=== PATIENT | male | born 1955 | race Two or more races ===

== ENCOUNTER 2018-07-28 14:08 | Inpatient (IN) | payer OTHER ==
[2018-07-28] VITALS (8 sets, daily range): BP systolic 88–115; BP diastolic 52–64
[~2018-07-28] VITALS: Ht 172.7 cm; Wt 72.8 kg
[2018-07-28] MEDS ORDERED: METOCLOPRAMIDE H5 M1 GT (14:16)
[2018-07-28] MEDS ORDERED: RENA-VITE TABL0.8 M1 GT (14:16)
[2018-07-28] MEDS ORDERED: BISACODYL10 M1 RC (14:16)
[2018-07-28] MEDS ORDERED: IPRATROPIU0.2 MG/1 M HHN (14:16)
[2018-07-28] MEDS ORDERED: RENVELA2.4 GM GT (14:16)
[2018-07-28] MEDS ORDERED: BISACODYL5 MG GT (14:16)
[2018-07-28] MEDS ORDERED: CARVEDILOL6.25 MG GT (14:16)
[2018-07-28] MEDS ORDERED: PRO-STAT LIQUID30 ML GT (14:16)
[2018-07-28] MEDS ORDERED: MELATONIN1 MG GT (14:16)
[2018-07-28] MEDS ORDERED: ASPIR 8181 MG GT (14:16)
[2018-07-28] MEDS ORDERED: DIPHENHYDRAMINE25 M1 GT (14:16)
[2018-07-28] MEDS ORDERED: PREVACID30 MG GT (14:16)
[2018-07-28] MEDS ORDERED: DOCUSATE SODIU100 MG GT (14:16)
--- NOTE | 2018-07-28 14:40 | Emergency Room Report ---
History of Present Illness General Chief Complaint: Altered Level of Consciousness Source: Medical Record, EMS Present Illness HPI Patient is a 63-year-old male brought in by EMS after increased altered mental status. Patient a prior history of end-stage renal disease and is currently on dialysis Monday and Monday. Patient had been unable to be dialyzed this morning. Patient was noted to be verbal at baseline. Patient was not noted to be at his baseline mental status. Patient had prior history of G-tube dependence. He had been noted to have somewhat low blood pressure this morning. Allergies: Coded Allergies: PENICILLINS (Verified Allergy, Unknown, 07/28/18) Patient History Past Medical History: see triage record Reviewed Nursing Documentation: PMH: Agreed; PSxH: Agreed Nursing Documentation-PMH Hx Hypertension: Yes Hx Diabetes: Yes Hx Dialysis: Yes - CKD, anemia, Mon, and Mon Review of Systems All Other Systems: limited - Review of systems: Review systems is limited by patient's being a poor historian Physical Exam Vital Signs Date Time Temp Pulse Resp B/P (MAP) Pulse Ox O2 Delivery O2 Flow Rate FiO2 07/28/18 14:06 98.2 76 18 91/56 (68) 95 Nasal Cannula 2.0 General Appearance: alert, Chronically Ill ENT: dry mucus membranes Neck: limited range of motion Respiratory: chest non-tender, lungs clear, normal breath sounds Cardiovascular #1: normal peripheral pulses, regular rate, rhythm Gastrointestinal: other - gtube present Musculoskeletal: normal inspection Neurologic: aphasia, motor weakness Psychiatric: normal inspection Medical Decision Making Diagnostic Impression: Primary Impression: Altered mental status Additional Impressions: Missed dialysis Encephalopathy acute ER Course Patient presented for altered mental status. Differential diagnosis include was not limited to uremia, CVA, sepsis, hepatic encephalopathy among others. Because of complexity of patient's case laboratory testing and imaging studies were ordered. Ct of head read by radiology showed chronic white matter changes without evident hemorrhage or cva. Patient was started on IV fluids due to hypotension. He was noted to have some improvement in mental status. Per patient mother, Gtube had recently been placed. and patient normally is difficult to understand due to dysarthria. Dr. Luis Daniel Salcido was contacted for inpatient management due to capitated physician for [place]. Laboratory Tests Test 07/28/18 14:17 07/28/18 14:30 07/29/18 03:25 Sodium Level 135 MMOL/L (136-145) L 138 MMOL/L (136-145) Potassium Level 5.4 MMOL/L (3.5-5.1) H 4.7 MMOL/L (3.5-5.1) Chloride Level 98 MMOL/L (98-107) 100 MMOL/L (98-107) Carbon Dioxide Level 30 MMOL/L (21-32) 30 MMOL/L (21-32) Anion Gap 7 mmol/L (5-15) 8 mmol/L (5-15) Blood Urea Nitrogen 57 mg/dL (7-18) H 63 mg/dL (7-18) H Creatinine 5.8 MG/DL (0.55-1.30) H 6.3 MG/DL (0.55-1.30) H Estimate Glomerular Filtration Rate 9.9 mL/min (>60) 9.0 mL/min (>60) Glucose Level 96 MG/DL (74-106) 69 MG/DL (74-106) L Calcium Level 9.7 MG/DL (8.5-10.1) 9.7 MG/DL (8.5-10.1) Phosphorus Level 6.5 MG/DL (2.5-4.9) H Magnesium Level 2.4 MG/DL (1.8-2.4) Total Bilirubin 0.4 MG/DL (0.2-1.0) 0.4 MG/DL (0.2-1.0) Aspartate Amino Transferase (AST) 54 U/L (15-37) H 32 U/L (15-37) Alanine Aminotransferase (ALT) 19 U/L (12-78) 13 U/L (12-78) Alkaline Phosphatase 339 U/L (46-116) H 298 U/L (46-116) H Ammonia 23 umol/L (11-32) Total Creatine Kinase 116 U/L (26-308) Creatine Kinase MB < 0.5 NG/ML (0.0-3.6) Creatine Kinase MB Relative Index 0.4 Total Protein 9.0 G/DL (6.4-8.2) H 8.4 G/DL (6.4-8.2) H Albumin 2.3 G/DL (3.4-5.0) L 2.2 G/DL (3.4-5.0) L Globulin 6.7 g/dL 6.2 g/dL Albumin/Globulin Ratio 0.3 (1.0-2.7) L 0.4 (1.0-2.7) L White Blood Count 10.7 K/UL (4.8-10.8) Red Blood Count 4.64 M/UL (4.70-6.10) L Hemoglobin 10.5 G/DL (14.2-18.0) L Hematocrit 35.6 % (42.0-52.0) L Mean Corpuscular Volume 77 FL (80-99) L Mean Corpuscular Hemoglobin 22.5 PG (27.0-31.0) L Mean Corpuscular Hemoglobin Concent 29.4 G/DL (32.0-36.0) L Red Cell Distribution Width 17.9 % (11.6-14.8) H Platelet Count 258 K/UL (150-450) Mean Platelet Volume 7.8 FL (6.5-10.1) Neutrophils (%) (Auto) 61.3 % (45.0-75.0) Lymphocytes (%) (Auto) 23.9 % (20.0-45.0) Monocytes (%) (Auto) 5.2 % (1.0-10.0) Eosinophils (%) (Auto) 8.5 % (0.0-3.0) H Basophils (%) (Auto) 1.1 % (0.0-2.0) Lactic Acid Level 1.80 mmol/L (0.4-2.0) Troponin I 0.004 ng/mL (0.000-0.056) Thyroid Stimulating Hormone (TSH) 0.832 uiU/mL (0.358-3.740) Cortisol AM Sample Pending Last Vital Signs Date Time Temp Pulse Resp B/P (MAP) Pulse Ox O2 Delivery O2 Flow Rate FiO2 07/28/18 14:06 98.2 76 18 91/56 (68) 95 Nasal Cannula 2.0 Status: improved Disposition: ADMITTED INPATIENT Condition: Stable Pasquale Reese MD Jul 28, 2018 14:40
[2018-07-28 14:59] LABS: BASOPHILS % (AUTO) 1.1 % (0.0-2.0); EOSINOPHILS % (AUTO) 8.5 % (0.0-3.0); HEMATOCRIT 35.6 % (42.0-52.0); HEMOGLOBIN 10.5 G/DL (14.2-18.0); LYMPHOCYTES % (AUTO) 23.9 % (20.0-45.0); MEAN CORPUSCULAR VOLUME 77 FL (80-99); MONOCYTES % (AUTO) 5.2 % (1.0-10.0); NEUTROPHILS % (AUTO) 61.3 % (45.0-75.0); PLATELET COUNT 258 K/UL (150-450); RED BLOOD COUNT 4.64 M/UL (4.70-6.10); RED CELL DISTRIBUTION WIDTH 17.9 % (11.6-14.8); WHITE BLOOD COUNT 10.7 K/UL (4.8-10.8)
[2018-07-28 15:13] LABS: ANION GAP 7 mmol/L (5-15); BLOOD UREA NITROGEN 57 mg/dL (7-18); CALCIUM 9.7 MG/DL (8.5-10.1); CARBON DIOXIDE 30 MMOL/L (21-32); CHLORIDE 98 MMOL/L (98-107); CREATININE 5.8 MG/DL (0.55-1.30); POTASSIUM 5.4 MMOL/L (3.5-5.1); SODIUM 135 MMOL/L (136-145)
[2018-07-28 15:17] LABS: AMMONIA 23 umol/L (11-32)
[2018-07-28 15:29] LABS: ALANINE AMINOTRANSFERASE 19 U/L (12-78); ALBUMIN 2.3 G/DL (3.4-5.0); ALBUMIN/GLOBULIN RATIO 0.3 (1.0-2.7); ALKALINE PHOSPHATASE 339 U/L (46-116); ASPARTATE AMINO TRANSFERASE 54 U/L (15-37); BILIRUBIN,TOTAL 0.4 MG/DL (0.2-1.0); CKMB < 0.5 NG/ML (0.0-3.6); CREATINE KINASE 116 U/L (26-308); PHOSPHORUS 6.5 MG/DL (2.5-4.9)
--- NOTE | 2018-07-28 15:50 | Diagnostic Imaging Report ---
History: AMS Exam: CT HEAD Without Contrast Technique more: CTDI is 70.38 mGy and DLP is 1520 mGy-cm. Technique more: One or more of the following dose reduction techniques were used: automated exposure control, adjustment of the mA and/or kV according to patient size, use of iterative reconstruction technique. Comparison: None available FINDINGS: No intracranial hemorrhage, mass effect or CT evidence of acute infarct. Convexity volume loss, atrophy. The ventricles are within limits and midline. The paranasal sinuses and mastoids are clear. Old left inferior orbital floor deformity. IMPRESSION: No intracranial hemorrhage, mass effect or CT evidence of acute infarct. Convexity volume loss, atrophy.
--- NOTE | 2018-07-28 16:24 | Consultation ---
History of Present Illness General Date patient seen: Jul 28, 2018 Chief Complaint: Altered Level of Consciousness Referring physician: Dr. Salcido Present Illness HPI Justin Singletary is a 63-year-old male with a past medical history of dysphagia status post G-tube, hypertension, and end-stage renal disease, who presented with complaints of altered mental status. The patient is unable to provide any history but was slightly hypotensive at time of his ED admission. He has not received dialysis. He had a CAT scan of the head that was unremarkable, but in light of his confusion, he is now admitted for further evaluation and care. Neurological consultation has been requested at this time. Allergies: Coded Allergies: PENICILLINS (Verified Allergy, Unknown, 07/28/18) Medication History Scheduled Amino Acids/Protein Hydrolys (Pro-Stat Liquid), 30 ML GT TWICE A DAY, (Reported) Aspirin* (Aspir 81*), 81 MG GT DAILY, (Reported) Carvedilol* (Carvedilol*), 6.25 MG GT EVERY 12 HOURS, (Reported) Docusate Sodium* (Docusate Sodium*), 200 MG GT DAILY, (Reported) Folic Acid/Vitamin B Comp W-C (Cathy-Andres Tablet), 0.8 MG GT DAILY, (Reported) Lansoprazole* (Prevacid*), 30 MG GT DAILY, (Reported) Midodrine (Midodrine HCl), 10 MG ORAL THREE TIMES A DAY Sevelamer Carbonate* (Renvela*), 2,400 MG GT THREE TIMES A DAY, (Reported) Scheduled PRN Bisacodyl (Bisacodyl), 10 MG RC DAILY PRN for Constipation, (Reported) Bisacodyl* (Dulcolax*), 5 MG GT DAILY PRN for Constipation, (Reported) Diphenhydramine Hcl* (Diphenhydramine Hcl*), 25 MG GT Q6H PRN for Itching, ( Reported) Hydrocortisone (Hydrocortisone), 10 MG PO BID PRN Ipratropium [place] 0.5MG/2.5ML (Ipratropium [place] 0.5MG/2.5ML), 0.5 MG HHN Q6H PRN for Shortness of Breath, (Reported) Melatonin (Melatonin), 1 MG GT HS PRN for Insomnia, (Reported) Metoclopramide Hcl* (Metoclopramide Hcl*), 5 MG GT EVERY 6 HOURS PRN for Nausea & Vomiting, (Reported) Patient History Limited by: medical condition History Provided By: Medical Record Healthcare decision maker Resuscitation status Advanced Directive on File Review of Systems Constitutional: Denies: no symptoms, see HPI, chills, sweats, fever, malaise, weakness, other Eye: Denies: no symptoms, see HPI, eye pain, blurred vision, tearing, double vision, nose pain, nose congestion, acuity changes, discharge, other ENT: Denies: no symptoms, see HPI, ear pain, ear discharge, nose pain, nose congestion, throat pain, throat swelling, mouth pain, hearing loss, nasal discharge, other Respiratory: Denies: no symptoms, see HPI, cough, orthopnea, shortness of breath, stridor, wheezing, GUZMAN, sputum, other Cardiovascular: Denies: no symptoms, see HPI, chest pain, edema, palpitations, syncope, PND, other Gastrointestinal: Denies: no symptoms, see HPI, abdominal pain, constipation, diarrhea, nausea, vomiting, melena, hematemesis, other Genitourinary: Denies: no symptoms, see HPI, discharge, dysuria, frequency, hematuria, pain, retention, incontinence, urgency, vag bleed/dc, other Musculoskeletal: Reports: other - leg pain Skin: Denies: no symptoms, see HPI, rash, change in color, change in hair/nails , dryness, lesions, other Psychiatric: Denies: no symptoms, see HPI, prior hx, anxiety, depressed feelings, emotional problems, SI, HI, hallucinations, other Neurological: Denies: no symptoms, see HPI, headache, numbness, paresthesia, seizure, tingling, tremors, focal weakness, syncope, dizziness, other Endocrine: Denies: no symptoms, see HPI, excessive sweating, flushing, intolerance to temperature, increased thirst, increased urine, unexplained weight loss, other Hematologic/Lymphatic: Denies: no symptoms, see HPI, anemia, blood clots, easy bleeding, easy bruising, swollen glands, diathesis, other Physical Exam General Appearance: WD/WN, no apparent distress, alert, confused, other Lines, tubes and drains: peripheral HEENT: normocephalic, atraumatic, anicteric, mucous membranes moist, PERRL, EOMI, pharynx normal, supple, no JVD, other - Minimal dentation Neck: non-tender, normal alignment, supple, normal inspection Respiratory/Chest: normal breath sounds, no respiratory distress, no accessory muscle use Cardiovascular/Chest: normal peripheral pulses, no JVD Extremities: non-tender, non-pitting, no edema, no cyanosis, calf tenderness, other Skin Exam: normal pigmentation, warm/dry, no diaphoresis Neurologic: alert, responsive, abnormal CN, motor weakness, disoriented, other Physical Exam Narrative He is severely dysarthric secondary to his poor dentation. He has a left hand contracture but denies prior stroke. He follows commands and is weak throughout without any significant focal weakness Last 24 Hour Vital Signs Date Time Temp Pulse Resp B/P (MAP) Pulse Ox O2 Delivery O2 Flow Rate FiO2 07/28/18 15:30 99.2 75 18 95/57 100 Room Air 07/28/18 14:40 98.5 75 18 90/57 100 Room Air 07/28/18 14:30 76 18 Nasal Cannula 2.0 07/28/18 14:10 99.0 74 18 88/52 100 Room Air 07/28/18 14:06 98.2 76 18 91/56 (68) 95 Nasal Cannula 2.0 Laboratory Tests Test 07/28/18 14:17 07/28/18 14:30 Sodium Level 135 MMOL/L (136-145) L Potassium Level 5.4 MMOL/L (3.5-5.1) H Chloride Level 98 MMOL/L (98-107) Carbon Dioxide Level 30 MMOL/L (21-32) Anion Gap 7 mmol/L (5-15) Blood Urea Nitrogen 57 mg/dL (7-18) H Creatinine 5.8 MG/DL (0.55-1.30) H Estimat Glomerular Filtration Rate 9.9 mL/min (>60) Glucose Level 96 MG/DL (74-106) Calcium Level 9.7 MG/DL (8.5-10.1) Phosphorus Level 6.5 MG/DL (2.5-4.9) H Magnesium Level 2.4 MG/DL (1.8-2.4) Total Bilirubin 0.4 MG/DL (0.2-1.0) Aspartate Amino Transf (AST/SGOT) 54 U/L (15-37) H Alanine Aminotransferase (ALT/SGPT) 19 U/L (12-78) Alkaline Phosphatase 339 U/L (46-116) H Ammonia 23 umol/L (11-32) Total Creatine Kinase 116 U/L (26-308) Creatine Kinase MB < 0.5 NG/ML (0.0-3.6) Creatine Kinase MB Relative Index 0.4 Total Protein 9.0 G/DL (6.4-8.2) H Albumin 2.3 G/DL (3.4-5.0) L Globulin 6.7 g/dL Albumin/Globulin Ratio 0.3 (1.0-2.7) L White Blood Count 10.7 K/UL (4.8-10.8) Red Blood Count 4.64 M/UL (4.70-6.10) L Hemoglobin 10.5 G/DL (14.2-18.0) L Hematocrit 35.6 % (42.0-52.0) L Mean Corpuscular Volume 77 FL (80-99) L Mean Corpuscular Hemoglobin 22.5 PG (27.0-31.0) L Mean Corpuscular Hemoglobin Concent 29.4 G/DL (32.0-36.0) L Red Cell Distribution Width 17.9 % (11.6-14.8) H Platelet Count 258 K/UL (150-450) Mean Platelet Volume 7.8 FL (6.5-10.1) Neutrophils (%) (Auto) 61.3 % (45.0-75.0) Lymphocytes (%) (Auto) 23.9 % (20.0-45.0) Monocytes (%) (Auto) 5.2 % (1.0-10.0) Eosinophils (%) (Auto) 8.5 % (0.0-3.0) H Basophils (%) (Auto) 1.1 % (0.0-2.0) Lactic Acid Level 1.80 mmol/L (0.4-2.0) Troponin I 0.004 ng/mL (0.000-0.056) Height (Feet): 5 Height (Inches): 8.00 Weight (Pounds): 160 Medications Current Medications Medications (Trade) Dose Ordered Sig/João Route PRN Reason Start Time Stop Time Status Last Admin Dose Admin Sodium Chloride 1,000 ml @ 999 mls/hr Q1H1M ONCE IV 07/28/18 16:00 07/28/18 17:00 07/28/18 16:05 Assessment/Plan Problem List: (1) Encephalopathy acute ICD Codes: G93.40 - Encephalopathy, unspecified SNOMED: 07504266, 333218555 (2) Missed dialysis SNOMED: 589735724 (3) Altered mental status ICD Codes: R41.82 - Altered mental status, unspecified SNOMED: 576129529 Status: stable Status Narrative CT Brain : No intracranial hemorrhage, mass effect or CT evidence of acute infarct. Convexity volume loss, atrophy Assessment/Plan: Patient has poor dentation and very dysarthric speech as as result. However, he follows commands, is verbally interactive and appropriate as well as being non focal with signs of neurological weakness. May continue Q4 hr Neuro Obs - but he may be allowed to go through evening sleeping without Neuro obs Maintain good sleep hygiene Na 135-145 Treat cause of anemia Maintain normothermia Restart dialysis WINNIE IV hydration as per Nephrology Swallow study No indication for MRI at this time. PT Eduard as Li Buckner N.P. Jul 28, 2018 16:24
--- NOTE | 2018-07-28 17:22 | Diagnostic Imaging Report ---
EXAM: XR Chest, 1 View CLINICAL HISTORY: SOB TECHNIQUE: Frontal view of the chest. COMPARISON: No relevant prior studies available. FINDINGS: Lungs: Bilateral moderate pulmonary edema/infiltrates. Pleural space: Unremarkable. No pneumothorax. Heart: Unremarkable. No cardiomegaly. Mediastinum: Unremarkable. Bones/joints: Unremarkable. Tubes, lines and devices: Left central catheter in the SVC. IMPRESSION: Bilateral moderate pulmonary edema/infiltrates.
[2018-07-28] MEDS ORDERED: Ipratropium 0.02% Inh Soln 2.5ml UD HHN PRN (20:30)
[2018-07-28] MEDS: Midodrine 10mg tab ORAL SCH (21:39)
[2018-07-29] VITALS: BP 108/55
[2018-07-29 04:00] VITALS: BP 101/58
[2018-07-29 05:04] LABS: ALANINE AMINOTRANSFERASE 13 U/L (12-78); ALBUMIN 2.2 G/DL (3.4-5.0); ALBUMIN/GLOBULIN RATIO 0.4 (1.0-2.7); ALKALINE PHOSPHATASE 298 U/L (46-116); ANION GAP 8 mmol/L (5-15); ASPARTATE AMINO TRANSFERASE 32 U/L (15-37); BILIRUBIN,TOTAL 0.4 MG/DL (0.2-1.0); BLOOD UREA NITROGEN 63 mg/dL (7-18); CALCIUM 9.7 MG/DL (8.5-10.1); CARBON DIOXIDE 30 MMOL/L (21-32); CHLORIDE 100 MMOL/L (98-107); CREATININE 6.3 MG/DL (0.55-1.30); POTASSIUM 4.7 MMOL/L (3.5-5.1); SODIUM 138 MMOL/L (136-145)
[2018-07-29 08:00] VITALS: BP 109/67
[2018-07-29] MEDS: Nephrovite tab (Rena-Vite) GT SCH (08:47)
[2018-07-29] MEDS: Midodrine 10mg tab ORAL SCH ×3 (08:47→17:29)
[2018-07-29] MEDS: Renvela 2400 mg pkt GT SCH ×3 (08:47→17:29)
[2018-07-29] MEDS ORDERED: Aspirin EC 81mg tab ORAL SCH (09:00)
[2018-07-29] MEDS ORDERED: Docusate 100mg cap ORAL SCH (09:00)
[2018-07-29 12:00] VITALS: BP 131/66
[2018-07-29] MEDS ORDERED: Ibuprofen Susp 100mg/5ml GT PRN (14:15)
--- NOTE | 2018-07-29 15:52 | General Progress Note ---
Progress Note Progress Note [id number] full note dictated Wanda Hughes MD Jul 29, 2018 15:52
[2018-07-29 16:00] VITALS: BP 111/59
--- NOTE | 2018-07-29 17:30 | History and Physical Report ---
DATE OF ADMISSION: 07/28/2018 CHIEF COMPLAINT: Altered mental status. HISTORY OF PRESENT ILLNESS: The patient is a 63-year-old male. He is a poor historian. He has a history of dysphagia status post G-tube, hypertension, and end-stage renal disease, who presented with complaints of altered mental status. The patient is unable to provide any history. On evaluation in the emergency room, the patient was slightly hypotensive. He has not received dialysis. He had a CAT scan of the head that was unremarkable, but in light of his confusion, he is now admitted for further evaluation and care. PAST MEDICAL HISTORY: As above. PAST SURGICAL HISTORY: Includes hip surgery. CURRENT MEDICATIONS: Reconciled and reviewed. ALLERGIES: Include penicillin. FAMILY HISTORY: Noncontributory. SOCIAL HISTORY: The patient is a prior smoker and quit. No alcohol. No drugs. REVIEW OF SYSTEMS: Unobtainable as the patient is confused and somewhat dysarthric. PHYSICAL EXAMINATION: VITAL SIGNS: Temperature 98 degrees, pulse 71, respirations 20, and blood pressure 109/67. GENERAL: The patient is well developed, in no apparent distress. HEART: Regular rate and rhythm. LUNGS: Clear. ABDOMEN: Soft, nontender, and nondistended. EXTREMITIES: Without clubbing, cyanosis, or edema. The patient is noted to have generalized weakness. LABORATORY DATA: Sodium 135, potassium 5.4, BUN 57, creatinine 5.8 . Ammonia level was 23. Head CT was negative. Thyroid function tests were also normal. ASSESSMENT: This is a 63-year-old male admitted with complaints of altered mental status, unclear exactly what this patient's baseline is. He has end-stage renal disease. PLAN: We will try to contact family or friends regarding the patient's baseline mental status. Renal consultation for continuation of hemodialysis. We will follow the patient's cortisol level and try to obtain a urine. The patient is at his current baseline. He can likely be discharged after hemodialysis. Luis Daniel Salcido M.D. DR: MASTER JOB#: [id number] CC:
--- NOTE | 2018-07-29 17:44 | Neurology Progress Note ---
Objective Physical Exam Last Vital Signs Date Time Temp Pulse Resp B/P (MAP) Pulse Ox O2 Delivery O2 Flow Rate FiO2 07/29/18 16:00 Room Air 07/29/18 16:00 97.6 76 20 111/59 (76) 100 07/29/18 07:15 21 07/28/18 14:30 2.0 Laboratory Tests Test 07/29/18 03:25 07/29/18 14:50 Sodium Level 138 MMOL/L (136-145) Potassium Level 4.7 MMOL/L (3.5-5.1) Chloride Level 100 MMOL/L (98-107) Carbon Dioxide Level 30 MMOL/L (21-32) Anion Gap 8 mmol/L (5-15) Blood Urea Nitrogen 63 mg/dL (7-18) H Creatinine 6.3 MG/DL (0.55-1.30) H Estimat Glomerular Filtration Rate 9.0 mL/min (>60) Glucose Level 69 MG/DL (74-106) L Calcium Level 9.7 MG/DL (8.5-10.1) Total Bilirubin 0.4 MG/DL (0.2-1.0) Aspartate Amino Transf (AST/SGOT) 32 U/L (15-37) Alanine Aminotransferase (ALT/SGPT) 13 U/L (12-78) Alkaline Phosphatase 298 U/L (46-116) H Total Protein 8.4 G/DL (6.4-8.2) H Albumin 2.2 G/DL (3.4-5.0) L Globulin 6.2 g/dL Albumin/Globulin Ratio 0.4 (1.0-2.7) L Thyroid Stimulating Hormone (TSH) 0.832 uiU/mL (0.358-3.740) Cortisol AM Sample Pending Hepatitis B Surface Antigen Pending Li Rondon N.P. Jul 29, 2018 17:44
[2018-07-29 20:00] VITALS: BP 99/45
[2018-07-29] MEDS: Dyna-Hex 2% Top Sol 2oz TOPIC SCH (20:05)
[2018-07-29] MEDS: Heparin 5000 units/ml inj SUBQ SCH (21:06)
[2018-07-30] VITALS: BP 103/47
--- NOTE | 2018-07-30 | Consultation ---
DATE OF CONSULTATION: 07/29/2018 NEPHROLOGY CONSULTATION REASON FOR CONSULTATION: End-stage renal disease, need for dialysis. HISTORY OF PRESENT ILLNESS: The patient is an unfortunate 63-year-old male with past medical history significant for history of end-stage renal disease, anemia of chronic kidney disease, renal osteodystrophy, and hypertension, who was missed dialysis due to generalized weakness and altered level of consciousness. He was brought into the emergency room. Upon arrival in the ER, the patient found to be hypotensive. The patient received couple of boluses, the blood pressures got stabilized. Electrolytes found to be within normal limits, though I held the dialysis for yesterday and today. The patient is more awake. Denies having any shortness of breath or chest pain. He is not having any complaint. ALLERGIES: The patient is allergic to penicillin. MEDICATIONS: [facility] are includin. Aspirin 81 mg daily. 2. Carvedilol 6.25 mg b.i.d. 3. Colace 100 mg daily. 4. ____ one tablet p.o. daily. 5. Prevacid 30 mg daily. 6. Melatonin ____ daily. 7. Renagel 2400 mg p.r.n. FAMILY HISTORY: Noncontributory. PAST SURGICAL HISTORY: 1. History of PermCath placement. 2. History of PEG placement. REVIEW OF SYSTEMS: Limited. The patient basically not providing appropriate answer to my question. PHYSICAL EXAMINATION: VITAL SIGNS: The patient has a low-grade temperature of 99.2 degrees, blood pressure of 108/55, and pulse rate of 98. HEAD AND NECK: No JVP. No LAD. No thyromegaly. Extraocular movement intact. Pupils are reactive to light and accommodation. LUNGS: Clear to auscultation. CARDIAC: Regular rate and rhythm. S1 and S2. No murmur or rub. ABDOMEN: Soft. He has a PEG. The patient also has a PermCath on the left side. EXTREMITIES: No edema. No clubbing. No cyanosis. LABORATORY AND DIAGNOSTIC DATA: Lab value revealed WBC count of 10.7, hemoglobin of 10.5, hematocrit of 35, and platelet count of 258,000. Chemistry revealed sodium of 138, potassium of 4.7, chloride 100, bicarb 30, BUN of 53, creatinine of 2.3, and calcium 9.7. Alkaline phosphatase of 399, ALT of 19, and AST of 54. Total bili of 4, albumin of 2.3, and total protein of 8.4. Cultures are pending. ASSESSMENT: 1. Mild hyperkalemia. 2. End-stage renal disease. 3. Anemia of chronic kidney disease. 4. Renal osteodystrophy. 5. Hypotension. PLAN: Plan for the patient ____ dialysis yesterday. We provided the patient on Epogen. Check calcium, phosphorous, PTH for evaluation of renal osteodystrophy. Again, I would like to thank Dr. Salcido for allowing me to participate in care of this patient. Wanda Hughes M.D. DR: Marcelo JOB#: [id number] CC:
[2018-07-30 04:00] VITALS: BP 100/49
[2018-07-30 08:00] VITALS: BP 121/56
[2018-07-30] MEDS ORDERED: Heparin1,000 units/500ml Premix(Conc:2 units/ml) IV PRN (08:00)
[2018-07-30] MEDS ORDERED: Lidocaine 1% Plain 30 ml INJ PRN (08:00)
--- NOTE | 2018-07-30 08:25 | General Progress Note ---
Assessment/Plan Problem List: (1) Encephalopathy acute ICD Codes: G93.40 - Encephalopathy, unspecified SNOMED: 97739049, 578502326 (2) Missed dialysis SNOMED: 216221922 (3) Altered mental status ICD Codes: R41.82 - Altered mental status, unspecified SNOMED: 602417461 Status: stable Assessment/Plan: HD per renal message left with family- no call back pt/ot monitor Bp ?dc planning Subjective ROS Limited/Unobtainable: No Constitutional: Reports: malaise, weakness HEENT: Reports: no symptoms Cardiovascular: Reports: no symptoms Respiratory: Reports: no symptoms Gastrointestinal/Abdominal: Reports: no symptoms Genitourinary: Reports: no symptoms Neurologic/Psychiatric: Reports: pre-existing deficit Endocrine: Reports: no symptoms Hematologic/Lymphatic: Reports: no symptoms Allergies: Coded Allergies: PENICILLINS (Verified Allergy, Unknown, 07/28/18) All Systems: reviewed and negative except above Subjective no complaints. tolerated hd. bp on the low normal side. no dizziness noted Objective Last 24 Hour Vital Signs Date Time Temp Pulse Resp B/P (MAP) Pulse Ox O2 Delivery O2 Flow Rate FiO2 07/30/18 08:00 Room Air 07/30/18 04:00 72 07/30/18 04:00 97.7 75 20 100/49 (66) 100 07/30/18 04:00 Room Air 07/30/18 00:00 97.7 67 20 103/47 (65) 98 07/30/18 00:00 Room Air 07/30/18 00:00 67 07/29/18 20:00 72 07/29/18 20:00 98.2 72 20 99/45 (63) 98 07/29/18 20:00 Room Air 07/29/18 19:56 74 18 98 Room Air 21 07/29/18 16:00 Room Air 07/29/18 16:00 76 07/29/18 16:00 97.6 76 20 111/59 (76) 100 07/29/18 12:00 Room Air 07/29/18 12:00 99.4 71 20 131/66 (87) 99 07/29/18 12:00 68 Intake and Output 07/29/18 07/30/18 18:59 06:59 Intake Total 600 ml Output Total 2000 ml Balance -1400 ml Intake Oral 600 ml Output Hemodialysis UF 2000 ml # Bowel Movements 1 1 Laboratory Tests 07/29/18 14:50: Hepatitis B Surface Antigen [Pending] Height (Feet): 5 Height (Inches): 8.00 Weight (Pounds): 160 General Appearance: WD/WN, alert Neck: supple Cardiovascular: regular rhythm Respiratory/Chest: chest wall non-tender, lungs clear, normal breath sounds Abdomen: normal bowel sounds, non tender, soft, no organomegaly Edema: no edema noted Arm (L), no edema noted Arm (R), no edema noted Leg (L), no edema noted Leg (R), no edema noted Pedal (L), no edema noted Pedal (R), no edema noted 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
[2018-07-30] MEDS: Renvela 2400 mg pkt GT SCH ×3 (08:33→18:18)
[2018-07-30] MEDS: Midodrine 10mg tab ORAL SCH ×3 (08:33→18:18)
[2018-07-30] MEDS: Nephrovite tab (Rena-Vite) GT SCH (08:33)
[2018-07-30] MEDS: Heparin 5000 units/ml inj SUBQ SCH ×2 (08:34→21:24)
[2018-07-30] MEDS ORDERED: Docusate 100mg/10ml Liq GT SCH (09:00)
[2018-07-30] MEDS ORDERED: Aspirin Baby 81mg GT SCH (09:00)
[2018-07-30 12:00] VITALS: BP 103/53
[2018-07-30 16:00] VITALS: BP 90/52
[2018-07-30 20:00] VITALS: BP 107/56
[2018-07-30] MEDS: Dyna-Hex 2% Top Sol 2oz TOPIC SCH (21:23)
[2018-07-30] MEDS ORDERED: Heparin1,000 units/500ml Premix(Conc:2 units/ml) IV ONE (21:45)
[2018-07-30] MEDS ORDERED: Lidocaine 1% Plain 30 ml INJ ONE (21:45)
[2018-07-30] MEDS ORDERED: Ipratropium 0.02% Inh Soln 2.5ml UD HHN PRN (22:00)
[2018-07-30] MEDS ORDERED: Ibuprofen Susp 100mg/5ml GT PRN (22:00)
--- NOTE | 2018-07-30 23:43 | Neurology Progress Note ---
Interim History Interim History ROS Limited/Unobtainable: No Interim History This visit was performed on July 30, [address] Soy Aiken. Objective Physical Exam Last Vital Signs Date Time Temp Pulse Resp B/P (MAP) Pulse Ox O2 Delivery O2 Flow Rate FiO2 07/30/18 20:20 86 18 97 Room Air 21 07/30/18 20:00 97.8 107/56 (73) 07/28/18 14:30 2.0 Impression/Recommendations Status: stable Li Rondon N.P. Jul 30, 2018 23:43
[2018-07-31] VITALS: BP 108/61
[2018-07-31 04:00] VITALS: BP 109/56
[2018-07-31] MEDS ORDERED: Ibuprofen Susp 100mg/5ml GT PRN (04:15)
[2018-07-31] MEDS: HYDROcodone/Acetamin 5/325 tab ORAL PRN ×3 (06:13→21:40)
[2018-07-31 08:00] VITALS: BP 102/58
--- NOTE | 2018-07-31 08:25 | General Progress Note ---
Assessment/Plan Problem List: (1) Encephalopathy acute ICD Codes: G93.40 - Encephalopathy, unspecified SNOMED: 40100084, 231857828 (2) Missed dialysis SNOMED: 840916218 (3) Altered mental status ICD Codes: R41.82 - Altered mental status, unspecified SNOMED: 258666142 Status: stable, progressing Assessment/Plan: HD per renal message left with family- no call back pt/ot monitor Bp cosyntropin stim test dc planning Subjective ROS Limited/Unobtainable: No Constitutional: Reports: malaise, weakness HEENT: Reports: no symptoms Cardiovascular: Reports: no symptoms Respiratory: Reports: no symptoms Gastrointestinal/Abdominal: Reports: no symptoms Genitourinary: Reports: no symptoms Neurologic/Psychiatric: Reports: no symptoms Endocrine: Reports: no symptoms Hematologic/Lymphatic: Reports: no symptoms Allergies: Coded Allergies: PENICILLINS (Verified Allergy, Unknown, 07/28/18) All Systems: reviewed and negative except above Subjective no complaints. tolerated hd. bp on the low normal side. no dizziness noted low cortisol Objective Last 24 Hour Vital Signs Date Time Temp Pulse Resp B/P (MAP) Pulse Ox O2 Delivery O2 Flow Rate FiO2 07/31/18 04:00 98.2 74 18 109/56 (73) 07/31/18 00:00 98.6 68 18 108/61 (77) 07/30/18 20:20 86 18 97 Room Air 21 07/30/18 20:00 97.8 73 18 107/56 (73) 78 07/30/18 20:00 Room Air 07/30/18 16:00 Room Air 07/30/18 16:00 99.1 69 26 90/52 (65) 96 07/30/18 16:00 71 07/30/18 12:00 77 07/30/18 12:00 98.2 70 26 103/53 (70) 95 07/30/18 12:00 Room Air 07/30/18 11:51 85 20 100 Room Air 21 Intake and Output 07/30/18 07/31/18 19:00 07:00 Intake Total 400 ml Output Total 2000 ml 1 ml Balance -1600 ml -1 ml Intake Oral 400 ml Output Stool Total 1 ml Hemodialysis UF 2000 ml Height (Feet): 5 Height (Inches): 8.00 Weight (Pounds): 160 General Appearance: WD/WN, alert Neck: supple Cardiovascular: normal peripheral pulses, normal rate Respiratory/Chest: chest wall non-tender, lungs clear, normal breath sounds Abdomen: normal bowel sounds, non tender, soft Edema: no edema noted Arm (L), no edema noted Arm (R), no edema noted Leg (L), no edema noted Leg (R), no edema noted Pedal (L), no edema noted Pedal (R), no edema noted 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
[2018-07-31] MEDS ORDERED: PRO-AMATINE10 MG ORAL (08:27)
[2018-07-31] MEDS: Docusate 100mg/10ml Liq GT SCH (08:51)
[2018-07-31] MEDS: Renvela 2400 mg pkt GT SCH ×3 (08:51→18:18)
[2018-07-31] MEDS: Nephrovite tab (Rena-Vite) GT SCH (08:52)
[2018-07-31] MEDS: Midodrine 10mg tab ORAL SCH ×3 (08:52→18:18)
[2018-07-31] MEDS: Aspirin Baby 81mg GT SCH (08:52)
[2018-07-31] MEDS: Heparin 5000 units/ml inj SUBQ SCH ×2 (08:53→21:41)
[2018-07-31] MEDS ORDERED: Cortrosyn 0.25mg Inj IVP ONE (09:30)
--- NOTE | 2018-07-31 10:58 | Diagnostic Imaging Report ---
APPROVED REPORT CPT Code: 37833 Present Symptoms Comments: Screening BILATERAL: Imaging reveals a patent deep venous system bilaterally. There is no evidence of thrombus within the common femoral, superficial femoral, popliteal or tibial segments. The greater saphenous veins are within normal limits. Doppler indicates normal spontaneous flow within these segments.
[2018-07-31 12:00] VITALS: BP 99/59
--- NOTE | 2018-07-31 15:06 | Cardiology Report ---
APPROVED REPORT EKG Measurement Heart [id number] Sinus rhythm with 1st degree AV block Left anterior fascicular block Nonspecific T wave abnormality Abnormal ECG
[2018-07-31 16:00] VITALS: BP 110/63
[2018-07-31 20:00] VITALS: BP 107/60
[2018-07-31] MEDS: Dyna-Hex 2% Top Sol 2oz TOPIC SCH (21:39)
--- NOTE | 2018-07-31 23:56 | Neurology Progress Note ---
Interim History Interim History ROS Limited/Unobtainable: No Objective Physical Exam Last Vital Signs Date Time Temp Pulse Resp B/P (MAP) Pulse Ox O2 Delivery O2 Flow Rate FiO2 07/31/18 16:00 98.2 77 18 110/63 (79) 98 07/31/18 09:00 Room Air 07/30/18 20:20 21 07/28/18 14:30 2.0 Laboratory Tests Test 07/31/18 08:55 07/31/18 10:15 Cortisol Pending 10.3 UG/DL Impression/Recommendations Status: stable, progressing Li Rondon N.P. Jul 31, 2018 23:56
[2018-08-01] VITALS: BP 111/58
[2018-08-01 04:00] VITALS: BP 124/83
[2018-08-01 08:00] VITALS: BP 122/83
[2018-08-01] MEDS: Midodrine 10mg tab ORAL SCH ×3 (08:53→17:43)
[2018-08-01] MEDS: Renvela 2400 mg pkt GT SCH ×3 (08:53→17:43)
[2018-08-01] MEDS: Aspirin Baby 81mg GT SCH (08:53)
[2018-08-01] MEDS: Nephrovite tab (Rena-Vite) GT SCH (08:53)
[2018-08-01] MEDS: Docusate 100mg/10ml Liq GT SCH (09:36)
[2018-08-01 09:52] LABS: BASOPHILS % (AUTO) 1.4 % (0.0-2.0); EOSINOPHILS % (AUTO) 7.7 % (0.0-3.0); HEMATOCRIT 38.4 % (42.0-52.0); HEMOGLOBIN 11.2 G/DL (14.2-18.0); LYMPHOCYTES % (AUTO) 29.7 % (20.0-45.0); MEAN CORPUSCULAR VOLUME 75 FL (80-99); MONOCYTES % (AUTO) 5.2 % (1.0-10.0); NEUTROPHILS % (AUTO) 55.9 % (45.0-75.0); PLATELET COUNT 303 K/UL (150-450); WHITE BLOOD COUNT 8.7 K/UL (4.8-10.8)
--- NOTE | 2018-08-01 09:57 | Nephrology Progress Note ---
Assessment/Plan Assessment 1. Mild hyperkalemia. 2. End-stage renal disease. 3. Anemia of chronic kidney disease. 4. Renal osteodystrophy. 5. Hypotension. Plan dialysis as schedule monitoring phos ,PTH continue epogen Subjective ROS Limited/Unobtainable: Yes Subjective no able to provide info Objective Objective Last 24 Hour Vital Signs Date Time Temp Pulse Resp B/P (MAP) Pulse Ox O2 Delivery O2 Flow Rate FiO2 08/01/18 09:00 Room Air 08/01/18 08:03 71 16 95 Room Air 21 08/01/18 08:00 97.5 70 19 122/83 (96) 99 08/01/18 04:00 98.9 69 17 124/83 (97) 95 08/01/18 00:00 98.7 68 17 111/58 (75) 95 07/31/18 21:00 Room Air 07/31/18 20:00 99.0 71 17 107/60 (76) 94 07/31/18 16:00 98.2 77 18 110/63 (79) 98 07/31/18 12:00 98.0 77 18 99/59 (72) 98 Intake and Output 07/31/18 08/01/18 19:00 07:00 Intake Total 640 ml 360 ml Balance 640 ml 360 ml Intake Oral 640 ml 360 ml # Voids 2 1 # Bowel Movements 3 3 Laboratory Tests 07/31/18 10:15: Cortisol 10.3 08/01/18 09:30: White Blood Count [Pending], Red Blood Count [Pending], Hemoglobin [Pending], Hematocrit [Pending], Mean Corpuscular Volume [Pending], Mean Corpuscular Hemoglobin [Pending], Mean Corpuscular Hemoglobin Concent [Pending], Red Cell Distribution Width [Pending], Platelet Count [Pending], Mean Platelet Volume [ Pending], Neutrophils (%) (Auto) [Pending], Lymphocytes (%) (Auto) [Pending], Monocytes (%) (Auto) [Pending], Eosinophils (%) (Auto) [Pending], Basophils (%) (Auto) [Pending], Sodium Level [Pending], Potassium Level [Pending], Chloride Level [Pending], Carbon Dioxide Level [Pending], Blood Urea Nitrogen [Pending], Creatinine [Pending], Estimat Glomerular Filtration Rate [Pending], Glucose Level [Pending], Calcium Level [Pending] Height (Feet): 5 Height (Inches): 8.00 Weight (Pounds): 160 Objective HEAD AND NECK: No JVP. No LAD. No thyromegaly. Extraocular movement intact. Pupils are reactive to light and accommodation. LUNGS: Clear to auscultation. CARDIAC: Regular rate and rhythm. S1 and S2. No murmur or rub. ABDOMEN: Soft. He has a PEG. The patient also has a PermCath on the left side. EXTREMITIES: No edema. No clubbing. No cyanosis. Wanda Hughes MD Aug 01, 2018 09:57
[2018-08-01 10:21] LABS: ANION GAP 5 mmol/L (5-15); BLOOD UREA NITROGEN 72 mg/dL (7-18); CALCIUM 9.8 MG/DL (8.5-10.1); CARBON DIOXIDE 31 MMOL/L (21-32); CHLORIDE 96 MMOL/L (98-107); CREATININE 8.2 MG/DL (0.55-1.30); SODIUM 132 MMOL/L (136-145)
[2018-08-01] MEDS: Heparin 5000 units/ml inj SUBQ SCH (10:24)
[2018-08-01 12:00] VITALS: BP 127/57
[2018-08-01] MEDS: HYDROcodone/Acetamin 5/325 tab ORAL PRN (13:44)
[2018-08-01 16:00] VITALS: BP 104/66
[2018-08-01] MEDS ORDERED: HYDROCORTISONE10 MG PO (16:07)
--- NOTE | 2018-08-01 18:47 | Neurology Progress Note ---
Interim History Interim History ROS Limited/Unobtainable: Yes Objective Physical Exam Last Vital Signs Date Time Temp Pulse Resp B/P (MAP) Pulse Ox O2 Delivery O2 Flow Rate FiO2 08/01/18 16:00 97.7 65 18 104/66 (79) 98 08/01/18 09:00 Room Air 08/01/18 08:03 21 07/28/18 14:30 2.0 Laboratory Tests Test 08/01/18 09:30 White Blood Count 8.7 K/UL (4.8-10.8) Red Blood Count 5.10 M/UL (4.70-6.10) Hemoglobin 11.2 G/DL (14.2-18.0) L Hematocrit 38.4 % (42.0-52.0) L Mean Corpuscular Volume 75 FL (80-99) L Mean Corpuscular Hemoglobin 21.9 PG (27.0-31.0) L Mean Corpuscular Hemoglobin Concent 29.1 G/DL (32.0-36.0) L Red Cell Distribution Width 18.0 % (11.6-14.8) H Platelet Count 303 K/UL (150-450) Mean Platelet Volume 6.6 FL (6.5-10.1) Neutrophils (%) (Auto) 55.9 % (45.0-75.0) Lymphocytes (%) (Auto) 29.7 % (20.0-45.0) Monocytes (%) (Auto) 5.2 % (1.0-10.0) Eosinophils (%) (Auto) 7.7 % (0.0-3.0) H Basophils (%) (Auto) 1.4 % (0.0-2.0) Sodium Level 132 MMOL/L (136-145) L Potassium Level 5.0 MMOL/L (3.5-5.1) Chloride Level 96 MMOL/L (98-107) L Carbon Dioxide Level 31 MMOL/L (21-32) Anion Gap 5 mmol/L (5-15) Blood Urea Nitrogen 72 mg/dL (7-18) H Creatinine 8.2 MG/DL (0.55-1.30) H Estimat Glomerular Filtration Rate 6.6 mL/min (>60) Glucose Level 95 MG/DL (74-106) Calcium Level 9.8 MG/DL (8.5-10.1) Impression/Recommendations Problems: (1) Encephalopathy acute (2) Missed dialysis (3) Altered mental status Status: stable Li Rondon N.P. Aug 01, 2018 18:47
[2018-08-01 20:00] VITALS: BP 110/69
[2018-08-01] MEDS: Dyna-Hex 2% Top Sol 2oz TOPIC SCH (20:00)
--- NOTE | 2018-08-02 08:50 | Discharge Summary ---
Discharge Summary Discharge Summary _ DATE OF ADMISSION: 07/28/2018 DATE OF DISCHARGE: 08/01/2018 DISCHARGED BY: Dr. Luis Daniel Salcido CONSULTANTS: Dr. Soy Hughes BRIEF HOSPITAL COURSE: Patient is a 63-year-old male who is a poor historian. He has history of dysphagia status post G-tube, hypertension and end-stage renal disease, who presented with complaints of altered mental status. Patient was unable to provide any history. On evaluation at the ED, patient was slightly hypotensive. Blood work did not show any leukocytosis. Hemoglobin 10, hematocrit 36. BUN was elevated to 57 and creatinine 5.8. Potassium level 5.4. Phosphorus 6.5. Ammonia level normal. TSH normal. CT of the head read by radiologist showed chronic white matter changes without evident hemorrhage or CVA. He was given IV fluids. He was then admitted for evaluation of altered mental status and missed hemodialysis. Neuro consultation was done. He was placed on frequent neuro checks. On examination, he did not present with focal signs of neurological weakness. There was no indication for an MRI. He was given IV hydration. He was given inpatient hemodialysis. He was given Epogen for anemia. He was given phosphate binders. Cortisol level was low. He was noted to come in with stage II sacral and right buttock ulcer. He was given wound care. Vital signs were stable. He was eventually discharged to a SNF. FINAL DIAGNOSES: Acute encephalopathy Missed dialysis Mild hyperkalemia End-stage renal disease on hemodialysis Anemia of chronic kidney disease Renal osteodystrophy Hypotension DISPOSITION: Patient was discharged to a SNF. DISCHARGE MEDICATIONS: Refer to Discharge Medication List. I have been assigned to complete a discharge summary on this account, I was not involved with the patient's management. Liz Mccracken NP Aug 02, 2018 08:50
== END 2018-08-01 20:25 | DRG 52 ==
LOC: EDBD 14:08 → EMR 14:40 → EDBEDREQ 15:27 → 2W 16:30 → 4E 07-30 20:15
PROC: 5A1D70Z Performance of Urinary Filtration, Intermittent, Less than 6 Hours Per Day (ICD-10-PCS; principal; 2018-07-29)
DX: G93.40 Encephalopathy, unspecified (principal); L89.152 Pressure ulcer of sacral region, stage 2; L89.312 Pressure ulcer of right buttock, stage 2; I12.0 Hypertensive chronic kidney disease with stage 5 chronic kidney disease or end stage renal disease; E87.5 Hyperkalemia; N25.0 Renal osteodystrophy; I95.9 Hypotension, unspecified; N18.6 End stage renal disease; Z88.0 Allergy status to penicillin; Z87.891 Personal history of nicotine dependence; Z99.2 Dependence on renal dialysis; D63.1 Anemia in chronic kidney disease; Z79.82 Long term (current) use of aspirin; R13.10 Dysphagia, unspecified; Z43.1 Encounter for attention to gastrostomy
CPT/HCPCS: 36415; 70450; 71045; 80048; 80053; 82140; 82533; 82550; 82553; 83605; 83735; 84100; 84443; 84484; 85025; 86706; 86850; 86900; 86901; 87040; 87081; 87181; 93005; 93970; 94664; 96360; 99285; J0834

== ENCOUNTER 2018-09-24 13:39 | Inpatient (IN) | payer OTHER ==
[~2018-09-24] VITALS: Ht 177.8 cm; Wt 77.6 kg
[2018-09-24] VITALS (10 sets, daily range): BP systolic 106–157; BP diastolic 57–103
[~2018-09-24 13:39] MED LIST: ASPIR 8181 MG GT; BISACODYL10 M1 RC; BISACODYL5 MG GT; CARVEDILOL6.25 MG GT; DIPHENHYDRAMINE25 M1 GT; DOCUSATE SODIU100 MG GT; HYDROCORTISONE10 MG PO; IPRATROPIU0.2 MG/1 M HHN; MELATONIN1 MG GT; METOCLOPRAMIDE H5 M1 GT; PREVACID30 MG GT; PRO-AMATINE10 MG ORAL; PRO-STAT LIQUID30 ML GT; RENA-VITE TABL0.8 M1 GT; RENVELA2.4 GM GT
--- NOTE | 2018-09-24 14:03 | Emergency Room Report ---
History of Present Illness General Chief Complaint: Altered Level of Consciousness Source: Medical Record Present Illness HPI Disclaimer: Please note that this report is being documented using mechatronic systemtechnikON technology. This can lead to erroneous entry secondary to incorrect interpretation by the dictating instrument. HPI: 63-year-old male with a history of ESRD on hemodialysis, hypertension, reported memory impairment, dysphagia status post G-tube presents for evaluation of altered mental status and respiratory distress. Patient is altered and cannot provide any significant history. He is moaning and is not following commands though awake. On arrival by EMS for evaluation altered mental status he was found to be somewhat hypoxic in the 70s so this is not a clear waveform. PMH: ESRD, hypertension, dysphagia PSH: G-tube, Shiley placement Allergies: Penicillin noted in chart Social Hx: Unknown Allergies: Coded Allergies: PENICILLINS (Verified Allergy, Unknown, 07/28/18) Patient History Limited by: medical condition Nursing Documentation-PMH Hx Cardiac Problems: Yes Hx Hypertension: Yes Hx Diabetes: Yes Hx Cancer: No Hx Gastrointestinal Problems: No - G-tube Hx Dialysis: Yes - CKD, anemia, Tue, Thurs and Sat Hx Neurological Problems: No Review of Systems All Other Systems: limited - Unable to obtain due to clinical condition Physical Exam Vital Signs Date Time Temp Pulse Resp B/P (MAP) Pulse Ox O2 Delivery O2 Flow Rate FiO2 09/24/18 13:39 97.5 86 24 137/89 (105) 94 Non-Rebreather 15.0 General: Awake, moaning, not responding verbally or following commands afebrile HEENT: NC/AT. EOMI. pupils are 4 mm and reactive bilaterally. Very dry mucous membranes. Possible aspirate over the tongue, green discoloration Neck: Supple, trachea midline Chest Wall: No tenderness, no deformity, Shiley catheter present in the left upper chest wall Cardiovascular: RRR. S1 and S2 normal. No murmur appreciated Resp: Slightly tachypnea, crackles in the right lung bases. No wheezing. Cough Abdomen: Abdomen is soft, nondistended. Nontender. G-tube is present appears in place, no surrounding erythema, no surrounding bleeding or discharge Skin: Intact. No abrasions, laceration or rash over the exposed skin. MSK: Decreased bulk in the extremities. Thin. Moving all extremities. No obvious deformity. Palpable dialysis catheters in the right upper extremity without thrill Neuro: Awake. Moaning only. Can move all extremities though no purposeful movement does not follow commands Procedures Critical Care Time Critical Care Time Total critical care time: Approximately 31 minutes Due to a high probability of clinically significant, life threatening deterioration, the patient required the highest level of preparedness to intervene emergently and I personally spent this critical care time directly and personally managing the patient. This critical care time included obtaining a history, examining the patient, pulse oximetry, ordering and reviewing studies , ordering treatments, evaluating response to treatment and updating management plan as needed, frequent reassessment and discussion with other providers as well as arranging for ultimate disposition. This critical to care time was performed to assess and manage the high probability of life-threatening deterioration that could result in multiorgan failure. This critical care time is separate from the separately billable procedures and treating other patients. Medical Decision Making Diagnostic Impression: Primary Impression: Altered mental status Additional Impressions: Acute respiratory failure with hypoxia Pulmonary edema ER Course This 63-year-old male brought him from his assisted living facility with a history of hypertension, dialysis, dysphagia presenting for altered mental status found to be hypoxic on arrival. He was started on nonrebreather which improved his saturations to the high 90s. There are crackles at the bases and at this time differential includes but is not limited to sepsis, pneumonia, bronchitis, CHF, fluid overload, electrolyte imbalances from missed dialysis, urinary tract infection, other encephalopathy. Unknown when his last dialysis was. Will order stat EKG, labs including blood cultures. IV fluid hydration will be preceded gently as he is an ESRD patient. EKG Diagnostic Results EKG Time: 14:11 Rate: normal Rhythm: NSR Other Impression Sinus rhythm with first-degree AV block SD interval 220 ms. Left axis deviation and T wave inversion in the precordial leads V1 2, V3. No acute ST segment changes. Largely unchanged from EKGs from July 2018 Rhythm Strip Diag. Results Rhythm Strip Time: 14:11 EP Interpretation: yes Rate: 90s Rhythm: NSR Chest X-Ray Diagnostic Results Chest X-Ray Diagnostic Results : Chest X-Ray Ordered: Yes # of Views/Limited/Complete: 1 View Indication: Shortness of Breath EP Interpretation: Yes Impression: Other - Pulmonary congestion bilaterally, right worse than left. No obvious clear consolidation Electronically Signed by: Electronically signed by Dr. Shree Schofield Reevaluation Time: 15:32 Last Vital Signs Date Time Temp Pulse Resp B/P (MAP) Pulse Ox O2 Delivery O2 Flow Rate FiO2 09/24/18 13:39 97.5 86 24 137/89 (105) 94 Non-Rebreather 15.0 Reevaluation Impression Alerted by lab that the blood gas showed a pH of 7.075 with a PCO2 of 114 consistent with patient's hypoxic respiratory failure and bilateral pulmonary congestion on chest x-ray. Patient is scheduled for hemodialysis tomorrow as part of his Monday, , Monday schedule. According to nursing facility he has not missed any dialysis. He was started on BiPAP immediately and tolerating well. Remains altered. He will be admitted to the stepdown unit for close monitoring. 1830: ABGs improving on BiPAP. He will be admitted to the stepdown unit for further management. Disposition: ADMITTED INPATIENT Condition: Stable Shree Schofeild MD Sep 24, 2018 14:03
[2018-09-24] MEDS ORDERED: TRAMADOL HCL50 MG GT (14:17)
[2018-09-24] MEDS ORDERED: NORCO 5-325 TA1 EACH GT (14:17)
[2018-09-24] MEDS ORDERED: ACETAMINOPHEN325 M1 GT (14:17)
[2018-09-24 14:27] LABS: BASOPHILS % (AUTO) 1.9 % (0.0-2.0); EOSINOPHILS % (AUTO) 2.6 % (0.0-3.0); HEMATOCRIT 44.1 % (42.0-52.0); HEMOGLOBIN 12.9 G/DL (14.2-18.0); LYMPHOCYTES % (AUTO) 22.6 % (20.0-45.0); MEAN CORPUSCULAR VOLUME 84 FL (80-99); MONOCYTES % (AUTO) 6.9 % (1.0-10.0); PLATELET COUNT 254 K/UL (150-450); RED BLOOD COUNT 5.27 M/UL (4.70-6.10); RED CELL DISTRIBUTION WIDTH 26.9 % (11.6-14.8); WHITE BLOOD COUNT 6.7 K/UL (4.8-10.8)
--- NOTE | 2018-09-24 15:01 | Diagnostic Imaging Report ---
Indication: Dyspnea Comparison: 07/28/2018 A single view chest radiograph was obtained. Findings: There is enlargement of the cardiac silhouette with pulmonary vascular redistribution and prominence, hazy vessel margins and the suggestion of interstitial edema consistent with CHF. There is a left jugular permacath which appears unchanged in configuration with both ports projected over the SVC though oriented transversely. There is a moderate to large right pleural effusion. Bones are osteopenic. IMPRESSION: CHF. Right pleural effusion
[2018-09-24 15:35] LABS: ANION GAP 9 mmol/L (5-15); BLOOD UREA NITROGEN 66 mg/dL (7-18); CALCIUM 9.3 MG/DL (8.5-10.1); CARBON DIOXIDE 28 MMOL/L (21-32); CHLORIDE 92 MMOL/L (98-107); CREATININE 4.6 MG/DL (0.55-1.30); POTASSIUM 3.8 MMOL/L (3.5-5.1); SODIUM 129 MMOL/L (136-145)
[2018-09-24 15:48] LABS: ALANINE AMINOTRANSFERASE 50 U/L (12-78); ALBUMIN/GLOBULIN RATIO 0.4 (1.0-2.7); ALKALINE PHOSPHATASE 210 U/L (46-116); ASPARTATE AMINO TRANSFERASE 63 U/L (15-37); BILIRUBIN,TOTAL 0.3 MG/DL (0.2-1.0); CKMB 0.7 NG/ML (0.0-3.6); CREATINE KINASE 28 U/L (26-308); PHOSPHORUS 3.9 MG/DL (2.5-4.9)
[2018-09-24] MEDS ORDERED: Albuterol/Ipratropium 3ml neb HHN PRN (17:45)
[2018-09-24] MEDS ORDERED: Miralax 17gm pkt GT PRN (17:45)
[2018-09-24] MEDS ORDERED: Dextrose 50% 25ml Syringe IV PRN (17:45)
--- NOTE | 2018-09-24 19:43 | History & Physical ---
History and Physical History & Physicial Dictated for Int Med-Dr George no. [id number]. Yoni Christianson MD Sep 24, 2018 19:43
[2018-09-24] MEDS: Carvedilol 6.25mg Tab GT SCH (20:45)
[2018-09-24] MEDS: Midodrine 10mg tab GT SCH (20:45)
[2018-09-24] MEDS: Renvela 2400 mg pkt GT SCH (20:46)
[2018-09-24] MEDS: NovoLOG Insulin Flexpen SUBQ SCH (20:49)
[2018-09-24] MEDS: Heparin 5000 units/ml inj SUBQ SCH (20:49)
[2018-09-25] VITALS (24 sets, daily range): BP systolic 97–145; BP diastolic 41–77
--- NOTE | 2018-09-25 01:15 | History and Physical Report ---
DATE OF ADMISSION: 09/24/2018 CHIEF COMPLAINT: The patient is a 63-year-old, male, who presents with a chief complaint of altered mental status and respiratory distress. HISTORY OF PRESENT ILLNESS: The patient is a resident of [facility]. The patient himself is unable to contribute much to the history and physical. Much of the history and physical is obtained from the patient's chart. The patient is a resident of [facility]. According to staff at [facility], the patient began to have respiratory distress. The patient was found to be hypoxic to the 70s on room air. The patient was transported to [facility]. The patient is admitted with respiratory failure. REVIEW OF SYSTEMS: Unable to assess secondary to the patient's mental status. PAST MEDICAL HISTORY: Significant for: 1. End-stage renal disease, on hemodialysis. 2. Hypertension. 3. Dysphagia. 4. Alzheimer's dementia. PAST SURGICAL HISTORY: Significant for: 1. Hip surgery. 2. PEG placement. 3. Shiley procedure. CURRENT MEDICATIONS: 1. Tylenol 650 mg per G-tube q.4 hours p.r.n. 2. Pro-Stat 30 mL per G-tube twice daily. 3. Aspirin 81 mg per G-tube daily. 4. Dulcolax 5 mg per G-tube daily. 5. Carvedilol 6.25 mg per G-tube q.12 hours. 6. Folic acid/vitamin-B complex 0.8 mg per G-tube daily. 7. Rhodelia 5/325 mg one tablet per G-tube q.6 hours p.r.n. 8. Hydrocortisone 10 mg per G-tube twice daily. 9. DuoNeb nebulized q.4 hours p.r.n. 10. Prevacid 30 mg per G-tube daily. 11. Melatonin 1 mg per G-tube at bedtime. 12. Reglan 5 mg per G-tube q.6 hours. 13. Midodrine 10 mg per G-tube 3 times daily. 14. Renvela 2400 mg per G-tube daily 3 times daily. 15. Tramadol 50 mg per G-tube q.6 hours p.r.n. ALLERGIES: Penicillin. SOCIAL HISTORY: The patient is single. The patient is a former smoker having quit several years ago. The patient denies alcohol use. PHYSICAL EXAMINATION: VITAL SIGNS: Temperature 97.5, respirations 24, pulse 86, blood pressure 137/89, and pulse ox 94 percent on 15 liters of oxygen on a non-rebreather. GENERAL: The patient is a well-developed and well-nourished male, in moderate respiratory distress. HEENT: Eyes, pupils are equal and responsive to light and accommodation. Extraocular movements are intact. NECK: Supple without lymphadenopathy. CHEST: Diffuse wheezes and crackles in bilateral bases. Otherwise, without wheezes or rales. CARDIOVASCULAR: Tachycardic. Regular rate. S1 and S2 are normal without murmurs, rubs, or gallops. ABDOMEN: Soft, nontender, and nondistended. Positive bowel sounds. No evidence of hepatosplenomegaly. Currently, no rebound or guarding noted. EXTREMITIES: Negative for clubbing, cyanosis, or edema. RECTAL/GENITAL: Not performed. NEUROLOGICAL: Unable to assess. LABORATORY STUDIES: WBC 6.7, hemoglobin 12.9, hematocrit 44.1, and platelets 254,000. Sodium 129, potassium 3.8, chloride 92, CO2 28, BUN 66, creatinine 4.6, and glucose 136. BNP elevated at greater than 35,000. Troponin 0.018. Chest x-ray was reported as congestive heart failure with right pleural effusion. ASSESSMENT: This is a 63-year-old male. 1. Respiratory failure. 2. Acute on chronic congestive heart failure. 3. End-stage renal disease. 4. Hypertension. 5. Dysphagia. 6. Dementia. TREATMENT: 1. Respiratory failure. The patient is currently on BiPAP. A Pulmonary consultation has been obtained with Dr. Ryan Traore. We will follow recommendations of Pulmonary. 2. Acute congestive heart failure. Cardiology consultation has been obtained with Dr. Malcolm Yun. We will follow recommendations of Cardiology. 3. End-stage renal disease. A Nephrology consultation has been obtained with Dr. Hughes. We will follow recommendations of Nephrology. 4. Hypertension. The patient is currently hypotensive. 5. Dysphagia. The patient is status post PEG placement. 6. Dementia. Yoni Christianson M.D. DR: ARMANDO JOB#: [id number] CC:
[2018-09-25 05:16] LABS: BASOPHILS % (AUTO) 2.2 % (0.0-2.0); EOSINOPHILS % (AUTO) 1.3 % (0.0-3.0); HEMATOCRIT 33.4 % (42.0-52.0); HEMOGLOBIN 9.8 G/DL (14.2-18.0); MEAN CORPUSCULAR VOLUME 86 FL (80-99); MONOCYTES % (AUTO) 10.6 % (1.0-10.0); PLATELET COUNT 186 K/UL (150-450); RED BLOOD COUNT 3.89 M/UL (4.70-6.10); WHITE BLOOD COUNT 5.9 K/UL (4.8-10.8)
[2018-09-25 05:48] LABS: ALANINE AMINOTRANSFERASE 45 U/L (12-78); ALBUMIN 2.7 G/DL (3.4-5.0); ALBUMIN/GLOBULIN RATIO 0.4 (1.0-2.7); ALKALINE PHOSPHATASE 177 U/L (46-116); ANION GAP 12 mmol/L (5-15); ASPARTATE AMINO TRANSFERASE 64 U/L (15-37); BILIRUBIN,TOTAL 0.3 MG/DL (0.2-1.0); BLOOD UREA NITROGEN 68 mg/dL (7-18); CALCIUM 9.3 MG/DL (8.5-10.1); CARBON DIOXIDE 25 MMOL/L (21-32); CHLORIDE 94 MMOL/L (98-107); CREATININE 4.9 MG/DL (0.55-1.30); PHOSPHORUS 3.8 MG/DL (2.5-4.9); POTASSIUM 4.7 MMOL/L (3.5-5.1); SODIUM 130 MMOL/L (136-145)
[2018-09-25] MEDS: NovoLOG Insulin Flexpen SUBQ SCH ×4 (05:54→23:34)
[2018-09-25] MEDS: Renvela 2400 mg pkt GT SCH ×3 (08:41→17:47)
[2018-09-25] MEDS: Heparin 5000 units/ml inj SUBQ SCH ×2 (08:41→21:17)
[2018-09-25] MEDS: Carvedilol 6.25mg Tab GT SCH ×2 (08:44→21:16)
[2018-09-25] MEDS: Midodrine 10mg tab GT SCH ×3 (08:45→17:39)
[2018-09-25] MEDS ORDERED: Lansoprazole 15mg cap GT SCH (09:00)
[2018-09-25] MEDS: Acetaminophen 650mg/20.3ml GT PRN ×2 (10:13→13:18)
--- NOTE | 2018-09-25 11:07 | Consultation ---
History of Present Illness General Date patient seen: Sep 25, 2018 Chief Complaint: Altered Level of Consciousness Present Illness HPI 63-year-old male with a history of G-tube, ESRD on hemodialysis, hypertension, presented to ER with CC of altered mental status and respiratory distress. Patient is altered and cannot provide any significant history. His last HD was on Monday, two days prior to admission. Allergies: Coded Allergies: PENICILLINS (Verified Allergy, Unknown, 07/28/18) Medication History Scheduled Amino Acids/Protein Hydrolys (Pro-Stat Liquid), 30 ML GT TWICE A DAY, (Reported) Aspirin* (Aspir 81*), 81 MG GT DAILY, (Reported) Carvedilol* (Carvedilol*), 6.25 MG GT EVERY 12 HOURS, (Reported) Docusate Sodium* (Docusate Sodium*), 200 MG GT DAILY, (Reported) Folic Acid/Vitamin B Comp W-C (Cathy-Andres Tablet), 0.8 MG GT DAILY, (Reported) Lansoprazole* (Prevacid*), 30 MG GT DAILY, (Reported) Midodrine (Midodrine HCl), 10 MG ORAL THREE TIMES A DAY Sevelamer Carbonate* (Renvela*), 2,400 MG GT THREE TIMES A DAY, (Reported) Scheduled PRN Acetaminophen* (Acetaminophen 325MG Tablet*), 650 MG GT Q4H PRN for Pain Scale ( 3-5), (Reported) Bisacodyl (Bisacodyl), 10 MG RC DAILY PRN for Constipation, (Reported) Bisacodyl* (Dulcolax*), 5 MG GT DAILY PRN for Constipation, (Reported) Diphenhydramine Hcl* (Diphenhydramine Hcl*), 25 MG GT Q6H PRN for Itching, ( Reported) Hydrocodone Bit/Acetaminophen 5-325* ([employer] 5-325*), 1 TAB GT Q6H PRN for For Pain, (Reported) Hydrocortisone (Hydrocortisone), 10 MG PO BID PRN Ipratropium [place] 0.5MG/2.5ML (Ipratropium [place] 0.5MG/2.5ML), 0.5 MG HHN Q6H PRN for Shortness of Breath, (Reported) Melatonin (Melatonin), 1 MG GT HS PRN for Insomnia, (Reported) Metoclopramide Hcl* (Metoclopramide Hcl*), 5 MG GT EVERY 6 HOURS PRN for Nausea & Vomiting, (Reported) Tramadol Hcl* (Ultram*), 50 MG GT Q6H PRN for For Pain, (Reported) Patient History Healthcare decision maker n Resuscitation status Full Code Advanced Directive on File No Past Medical/Surgical History Past Medical/Surgical History: (1) Feeding by G-tube (2) AV fistula occlusion (3) ESRD (end stage renal disease) Review of Systems All Other Systems: negative except mentioned in HPI Physical Exam General Appearance: WD/WN, no apparent distress, mild distress Lines, tubes and drains: peripheral HEENT: normocephalic, anicteric Neck: non-tender, normal alignment Respiratory/Chest: chest wall non-tender, lungs clear Breasts: no masses Cardiovascular/Chest: normal peripheral pulses Abdomen: normal bowel sounds, non tender Genitourinary/Rectal: normal genital exam Extremities: normal range of motion Last 24 Hour Vital Signs Date Time Temp Pulse Resp B/P (MAP) Pulse Ox O2 Delivery O2 Flow Rate FiO2 09/25/18 08:44 72 113/50 09/25/18 08:00 50 09/25/18 08:00 72 19 113/50 (71) 100 09/25/18 08:00 Bi-pap 09/25/18 08:00 69 09/25/18 07:45 71 18 100 Facial 50 09/25/18 07:43 70 18 100 Bi-Pap 50 09/25/18 07:00 70 20 107/41 (63) 100 09/25/18 06:00 73 22 109/48 (68) 100 09/25/18 05:29 74 18 100 Facial 50 09/25/18 05:00 70 19 99/46 (63) 95 09/25/18 04:00 74 09/25/18 04:00 99.0 69 16 110/54 (72) 100 09/25/18 04:00 50 09/25/18 04:00 Bi-pap 09/25/18 04:00 99.0 69 19 122/59 (80) 95 09/25/18 03:09 70 19 100 Facial 50 09/25/18 03:00 71 20 106/60 (75) 95 09/25/18 03:00 70 17 105/77 (86) 97 09/25/18 02:00 73 18 100/54 (69) 97 09/25/18 02:00 72 18 100/54 (69) 95 09/25/18 01:18 74 19 99 Facial 50 09/25/18 01:00 74 19 114/60 (78) 95 09/25/18 00:00 50 09/25/18 00:00 97.9 73 18 128/64 (85) 97 09/25/18 00:00 72 09/25/18 00:00 Bi-pap 09/24/18 23:07 73 18 99 Facial 50 09/24/18 23:00 72 18 116/63 (80) 97 09/24/18 22:00 74 16 118/65 (82) 100 09/24/18 21:29 76 14 99 Facial 50 09/24/18 21:00 77 15 137/103 (114) 100 09/24/18 20:45 71 106/57 09/24/18 20:00 Bi-pap 09/24/18 20:00 71 19 106/57 (73) 100 09/24/18 20:00 50 09/24/18 20:00 75 09/24/18 19:31 Bi-pap 09/24/18 19:00 96.2 74 33 146/82 (103) 95 09/24/18 18:56 81 18 139/75 97 Bi-pap 30 09/24/18 18:50 80 24 99 Bi-Pap 50 09/24/18 18:50 80 24 99 Facial 50 09/24/18 18:30 97.7 81 18 139/79 99 Room Air 09/24/18 17:30 98.6 81 18 132/91 97 Bi-pap 30 09/24/18 16:53 88 24 100 Facial 30 09/24/18 16:30 97.0 87 21 140/89 99 Bi-pap 30 09/24/18 15:30 85 21 144/84 97 Bi-pap 30 09/24/18 15:08 30 09/24/18 15:00 84 22 96 Bi-Pap 30 09/24/18 15:00 84 22 96 Facial 30 09/24/18 14:30 98.7 87 31 157/86 99 Non-Rebreather 15.0 09/24/18 13:50 90 28 Non-Rebreather 15.0 09/24/18 13:39 97.5 86 24 137/89 (105) 94 Non-Rebreather 15.0 Intake and Output 09/24/18 09/25/18 19:00 07:00 Intake Total 150 ml 75 ml Output Total 0 ml 0 ml Balance 150 ml 75 ml Intake Oral 0 ml Free Water 75 ml IV Total 150 ml Output Urine Total 0 ml 0 ml Laboratory Tests Test 09/24/18 13:55 09/24/18 14:30 09/24/18 16:37 09/24/18 18:35 White Blood Count 6.7 K/UL (4.8-10.8) Red Blood Count 5.27 M/UL (4.70-6.10) Hemoglobin 12.9 G/DL (14.2-18.0) L Hematocrit 44.1 % (42.0-52.0) Mean Corpuscular Volume 84 FL (80-99) Mean Corpuscular Hemoglobin 24.6 PG (27.0-31.0) L Mean Corpuscular Hemoglobin Concent 29.3 G/DL (32.0-36.0) L Red Cell Distribution Width 26.9 % (11.6-14.8) H Platelet Count 254 K/UL (150-450) Mean Platelet Volume 9.7 FL (6.5-10.1) Neutrophils (%) (Auto) 66.0 % (45.0-75.0) Lymphocytes (%) (Auto) 22.6 % (20.0-45.0) Monocytes (%) (Auto) 6.9 % (1.0-10.0) Eosinophils (%) (Auto) 2.6 % (0.0-3.0) Basophils (%) (Auto) 1.9 % (0.0-2.0) Arterial Blood pH 7.075 (7.350-7.450) 7.116 (7.350-7.450) 7.204 (7.350-7.450) Arterial Blood Partial Pressure CO2 114.6 mmHg (35.0-45.0) *H 88.3 mmHg (35.0-45.0) *H 73.4 mmHg (35.0-45.0) *H Arterial Blood Partial Pressure O2 132.5 mmHg (75.0-100.0) H 63.1 mmHg (75.0-100.0) L 75.0 mmHg (75.0-100.0) Arterial Blood HCO3 32.8 mmol/L (22.0-26.0) H 27.8 mmol/L (22.0-26.0) H 28.3 mmol/L (22.0-26.0) H Arterial Blood Oxygen Saturation 98.0 % (95-100) 87.6 % (95-100) *L 94.4 % (95-100) L Arterial Blood Base Excess -0.3 (-2-2) -3.6 (-2-2) L -1.2 (-2-2) Sathya Test Positive Positive Positive Sodium Level 129 MMOL/L (136-145) L Potassium Level 3.8 MMOL/L (3.5-5.1) Chloride Level 92 MMOL/L (98-107) L Carbon Dioxide Level 28 MMOL/L (21-32) Anion Gap 9 mmol/L (5-15) Blood Urea Nitrogen 66 mg/dL (7-18) H Creatinine 4.6 MG/DL (0.55-1.30) H Estimat Glomerular Filtration Rate 12.9 mL/min (>60) Glucose Level 136 MG/DL (74-106) H Lactic Acid Level 0.90 mmol/L (0.4-2.0) Calcium Level 9.3 MG/DL (8.5-10.1) Phosphorus Level 3.9 MG/DL (2.5-4.9) Magnesium Level 2.8 MG/DL (1.8-2.4) H Total Bilirubin 0.3 MG/DL (0.2-1.0) Aspartate Amino Transf (AST/SGOT) 63 U/L (15-37) H Alanine Aminotransferase (ALT/SGPT) 50 U/L (12-78) Alkaline Phosphatase 210 U/L (46-116) H Ammonia 28 umol/L (11-32) Total Creatine Kinase 28 U/L (26-308) Creatine Kinase MB 0.7 NG/ML (0.0-3.6) Creatine Kinase MB Relative Index 2.5 Troponin I 0.018 ng/mL (0.000-0.056) Pro-B-Type Natriuretic Peptide > 32114 pg/mL (0-125) H Total Protein 10.1 G/DL (6.4-8.2) H Albumin 3.0 G/DL (3.4-5.0) L Globulin 7.1 g/dL Albumin/Globulin Ratio 0.4 (1.0-2.7) L Thyroid Stimulating Hormone (TSH) 9.267 uiU/mL (0.358-3.740) Test 09/24/18 20:19 09/25/18 04:00 09/25/18 08:00 Troponin I 0.265 ng/mL (0.000-0.056) 0.338 ng/mL (0.000-0.056) White Blood Count 5.9 K/UL (4.8-10.8) Red Blood Count 3.89 M/UL (4.70-6.10) L Hemoglobin 9.8 G/DL (14.2-18.0) L Hematocrit 33.4 % (42.0-52.0) L Mean Corpuscular Volume 86 FL (80-99) Mean Corpuscular Hemoglobin 25.3 PG (27.0-31.0) L Mean Corpuscular Hemoglobin Concent 29.5 G/DL (32.0-36.0) L Red Cell Distribution Width 26.0 % (11.6-14.8) H Platelet Count 186 K/UL (150-450) Mean Platelet Volume 6.5 FL (6.5-10.1) Neutrophils (%) (Auto) 61.0 % (45.0-75.0) Lymphocytes (%) (Auto) 25.0 % (20.0-45.0) Monocytes (%) (Auto) 10.6 % (1.0-10.0) H Eosinophils (%) (Auto) 1.3 % (0.0-3.0) Basophils (%) (Auto) 2.2 % (0.0-2.0) H Sodium Level 130 MMOL/L (136-145) L Potassium Level 4.7 MMOL/L (3.5-5.1) Chloride Level 94 MMOL/L (98-107) L Carbon Dioxide Level 25 MMOL/L (21-32) Anion Gap 12 mmol/L (5-15) Blood Urea Nitrogen 68 mg/dL (7-18) H Creatinine 4.9 MG/DL (0.55-1.30) H Estimat Glomerular Filtration Rate 12.0 mL/min (>60) Glucose Level 62 MG/DL (74-106) L Calcium Level 9.3 MG/DL (8.5-10.1) Phosphorus Level 3.8 MG/DL (2.5-4.9) Total Bilirubin 0.3 MG/DL (0.2-1.0) Aspartate Amino Transf (AST/SGOT) 64 U/L (15-37) H Alanine Aminotransferase (ALT/SGPT) 45 U/L (12-78) Alkaline Phosphatase 177 U/L (46-116) H Pro-B-Type Natriuretic Peptide > 92138 pg/mL (0-125) H Total Protein 9.1 G/DL (6.4-8.2) H Albumin 2.7 G/DL (3.4-5.0) L Globulin 6.4 g/dL Albumin/Globulin Ratio 0.4 (1.0-2.7) L Arterial Blood pH 7.217 (7.350-7.450) Arterial Blood Partial Pressure CO2 67.0 mmHg (35.0-45.0) *H Arterial Blood Partial Pressure O2 109.2 mmHg (75.0-100.0) H Arterial Blood HCO3 26.6 mmol/L (22.0-26.0) H Arterial Blood Oxygen Saturation 97.9 % (95-100) Arterial Blood Base Excess -2.0 (-2-2) Sathya Test Positive Height (Feet): 5 Height (Inches): 10.00 Weight (Pounds): 175 Medications Current Medications Medications (Trade) Dose Ordered Sig/João Route PRN Reason Start Time Stop Time Status Last Admin Dose Admin Acetaminophen (Tylenol) 650 mg Q4H PRN GT Fever 09/24/18 17:45 10/24/18 17:44 09/25/18 10:13 Albuterol/ Ipratropium (Albuterol/ Ipratropium) 3 ml Q4H PRN HHN Shortness of Breath 09/24/18 17:45 09/29/18 17:44 Carvedilol (Coreg) 6.25 mg EVERY 12 HOURS GT 09/24/18 21:00 10/24/18 20:59 09/24/18 20:45 Chlorhexidine Gluconate (Deb-Hex 2%) 1 applic DAILY@1999 TOPIC 09/25/18 20:00 10/25/18 19:59 Dextrose (Dextrose 50%) 25 ml Q30M PRN IV Hypoglycemia 09/24/18 17:45 10/24/18 17:43 Dextrose (Dextrose 50%) 50 ml Q30M PRN IV hypoglycemia 09/24/18 17:45 10/24/18 17:44 09/24/18 20:50 Heparin Sodium (Porcine) (Heparin 5000 units/ml) 5,000 units EVERY 12 HOURS SUBQ 09/24/18 21:00 10/24/18 20:59 09/25/18 08:41 Hydrocortisone (Cortef) 10 mg BID GT 09/24/18 18:00 10/24/18 17:59 09/25/18 08:40 Insulin Aspart (NovoLOG) BEFORE MEALS AND HS SUBQ 09/24/18 21:00 10/24/18 20:59 Lansoprazole (Prevacid) 30 mg DAILY GT 09/25/18 09:00 10/25/18 08:59 09/25/18 09:00 Midodrine (Pro-Amatine) 10 mg THREE TIMES A DAY GT 09/24/18 18:00 10/24/18 17:59 09/24/18 20:45 Ondansetron HCl (Zofran) 4 mg Q6H PRN IVP Nausea & Vomiting 09/24/18 17:45 10/24/18 17:44 Polyethylene Glycol (Miralax) 17 gm DAILYPRN PRN GT Constipation 09/24/18 17:45 10/24/18 17:44 Sevelamer Carbonate (Renvela) 2,400 mg THREE TIMES A DAY GT 09/24/18 18:00 10/24/18 17:59 09/25/18 08:41 Temazepam (Restoril) 15 mg HSPRN PRN GT Insomnia 09/24/18 17:45 10/01/18 17:44 Assessment/Plan Problem List: (1) Acute respiratory failure with hypoxia ICD Codes: J96.01 - Acute respiratory failure with hypoxia SNOMED: 87367890, 769869751 (2) Acute metabolic encephalopathy ICD Codes: G93.41 - Metabolic encephalopathy SNOMED: 52595351, 431812260 (3) Pleural effusion ICD Codes: J90 - Pleural effusion, not elsewhere classified SNOMED: 15586281 (4) CHF (congestive heart failure) ICD Codes: I50.9 - Heart failure, unspecified SNOMED: 11046048 (5) AV fistula occlusion ICD Codes: T82.898A - Other specified complication of vascular prosthetic devices, implants and grafts, initial encounter SNOMED: 055462721 (6) ESRD (end stage renal disease) ICD Codes: N18.6 - End stage renal disease SNOMED: 90492974 (7) Feeding by G-tube ICD Codes: Z93.1 - Gastrostomy status SNOMED: 833993935, 416458464, 544033222 Assessment/Plan: stat HD US of right chest for paracentesis. check electrolytes CXR in am resume feeding. Ryan Traore MD Sep 25, 2018 11:07
--- NOTE | 2018-09-25 12:42 | Cardiac Electrophysiology PN ---
Subjective Subjective [id number] Objective Last 24 Hour Vital Signs Date Time Temp Pulse Resp B/P (MAP) Pulse Ox O2 Delivery O2 Flow Rate FiO2 09/25/18 12:00 71 09/25/18 11:00 74 19 99/44 (62) 100 09/25/18 10:00 74 19 134/57 (82) 100 09/25/18 09:03 71 18 100 Facial 50 09/25/18 09:00 98.7 72 19 121/63 (82) 100 09/25/18 08:44 72 113/50 09/25/18 08:00 50 09/25/18 08:00 72 19 113/50 (71) 100 09/25/18 08:00 Bi-pap 09/25/18 08:00 69 09/25/18 07:45 71 18 100 Facial 50 09/25/18 07:43 70 18 100 Bi-Pap 50 09/25/18 07:00 70 20 107/41 (63) 100 09/25/18 06:00 73 22 109/48 (68) 100 09/25/18 05:29 74 18 100 Facial 50 09/25/18 05:00 70 19 99/46 (63) 95 09/25/18 04:00 74 09/25/18 04:00 99.0 69 16 110/54 (72) 100 09/25/18 04:00 50 09/25/18 04:00 Bi-pap 09/25/18 04:00 99.0 69 19 122/59 (80) 95 09/25/18 03:09 70 19 100 Facial 50 09/25/18 03:00 71 20 106/60 (75) 95 09/25/18 03:00 70 17 105/77 (86) 97 09/25/18 02:00 73 18 100/54 (69) 97 09/25/18 02:00 72 18 100/54 (69) 95 09/25/18 01:18 74 19 99 Facial 50 09/25/18 01:00 74 19 114/60 (78) 95 09/25/18 00:00 50 09/25/18 00:00 97.9 73 18 128/64 (85) 97 09/25/18 00:00 72 09/25/18 00:00 Bi-pap 09/24/18 23:07 73 18 99 Facial 50 09/24/18 23:00 72 18 116/63 (80) 97 09/24/18 22:00 74 16 118/65 (82) 100 09/24/18 21:29 76 14 99 Facial 50 09/24/18 21:00 77 15 137/103 (114) 100 09/24/18 20:45 71 106/57 09/24/18 20:00 Bi-pap 09/24/18 20:00 71 19 106/57 (73) 100 09/24/18 20:00 50 09/24/18 20:00 75 09/24/18 19:31 Bi-pap 09/24/18 19:00 96.2 74 33 146/82 (103) 95 09/24/18 18:56 81 18 139/75 97 Bi-pap 30 09/24/18 18:50 80 24 99 Bi-Pap 50 09/24/18 18:50 80 24 99 Facial 50 09/24/18 18:30 97.7 81 18 139/79 99 Room Air 09/24/18 17:30 98.6 81 18 132/91 97 Bi-pap 30 09/24/18 16:53 88 24 100 Facial 30 09/24/18 16:30 97.0 87 21 140/89 99 Bi-pap 30 09/24/18 15:30 85 21 144/84 97 Bi-pap 30 09/24/18 15:08 30 09/24/18 15:00 84 22 96 Bi-Pap 30 09/24/18 15:00 84 22 96 Facial 30 09/24/18 14:30 98.7 87 31 157/86 99 Non-Rebreather 15.0 09/24/18 13:50 90 28 Non-Rebreather 15.0 09/24/18 13:39 97.5 86 24 137/89 (105) 94 Non-Rebreather 15.0 Intake and Output 09/24/18 09/25/18 19:00 07:00 Intake Total 150 ml 75 ml Output Total 0 ml 0 ml Balance 150 ml 75 ml Intake Oral 0 ml Free Water 75 ml IV Total 150 ml Output Urine Total 0 ml 0 ml Laboratory Tests Test 09/24/18 13:55 09/24/18 14:30 09/24/18 16:37 09/24/18 18:35 White Blood Count 6.7 K/UL (4.8-10.8) Red Blood Count 5.27 M/UL (4.70-6.10) Hemoglobin 12.9 G/DL (14.2-18.0) L Hematocrit 44.1 % (42.0-52.0) Mean Corpuscular Volume 84 FL (80-99) Mean Corpuscular Hemoglobin 24.6 PG (27.0-31.0) L Mean Corpuscular Hemoglobin Concent 29.3 G/DL (32.0-36.0) L Red Cell Distribution Width 26.9 % (11.6-14.8) H Platelet Count 254 K/UL (150-450) Mean Platelet Volume 9.7 FL (6.5-10.1) Neutrophils (%) (Auto) 66.0 % (45.0-75.0) Lymphocytes (%) (Auto) 22.6 % (20.0-45.0) Monocytes (%) (Auto) 6.9 % (1.0-10.0) Eosinophils (%) (Auto) 2.6 % (0.0-3.0) Basophils (%) (Auto) 1.9 % (0.0-2.0) Arterial Blood pH 7.075 (7.350-7.450) 7.116 (7.350-7.450) 7.204 (7.350-7.450) Arterial Blood Partial Pressure CO2 114.6 mmHg (35.0-45.0) *H 88.3 mmHg (35.0-45.0) *H 73.4 mmHg (35.0-45.0) *H Arterial Blood Partial Pressure O2 132.5 mmHg (75.0-100.0) H 63.1 mmHg (75.0-100.0) L 75.0 mmHg (75.0-100.0) Arterial Blood HCO3 32.8 mmol/L (22.0-26.0) H 27.8 mmol/L (22.0-26.0) H 28.3 mmol/L (22.0-26.0) H Arterial Blood Oxygen Saturation 98.0 % (95-100) 87.6 % (95-100) *L 94.4 % (95-100) L Arterial Blood Base Excess -0.3 (-2-2) -3.6 (-2-2) L -1.2 (-2-2) Sathya Test Positive Positive Positive Sodium Level 129 MMOL/L (136-145) L Potassium Level 3.8 MMOL/L (3.5-5.1) Chloride Level 92 MMOL/L (98-107) L Carbon Dioxide Level 28 MMOL/L (21-32) Anion Gap 9 mmol/L (5-15) Blood Urea Nitrogen 66 mg/dL (7-18) H Creatinine 4.6 MG/DL (0.55-1.30) H Estimat Glomerular Filtration Rate 12.9 mL/min (>60) Glucose Level 136 MG/DL (74-106) H Lactic Acid Level 0.90 mmol/L (0.4-2.0) Calcium Level 9.3 MG/DL (8.5-10.1) Phosphorus Level 3.9 MG/DL (2.5-4.9) Magnesium Level 2.8 MG/DL (1.8-2.4) H Total Bilirubin 0.3 MG/DL (0.2-1.0) Aspartate Amino Transf (AST/SGOT) 63 U/L (15-37) H Alanine Aminotransferase (ALT/SGPT) 50 U/L (12-78) Alkaline Phosphatase 210 U/L (46-116) H Ammonia 28 umol/L (11-32) Total Creatine Kinase 28 U/L (26-308) Creatine Kinase MB 0.7 NG/ML (0.0-3.6) Creatine Kinase MB Relative Index 2.5 Troponin I 0.018 ng/mL (0.000-0.056) Pro-B-Type Natriuretic Peptide > 08581 pg/mL (0-125) H Total Protein 10.1 G/DL (6.4-8.2) H Albumin 3.0 G/DL (3.4-5.0) L Globulin 7.1 g/dL Albumin/Globulin Ratio 0.4 (1.0-2.7) L Thyroid Stimulating Hormone (TSH) 9.267 uiU/mL (0.358-3.740) Test 09/24/18 20:19 09/25/18 04:00 09/25/18 08:00 Troponin I 0.265 ng/mL (0.000-0.056) 0.338 ng/mL (0.000-0.056) White Blood Count 5.9 K/UL (4.8-10.8) Red Blood Count 3.89 M/UL (4.70-6.10) L Hemoglobin 9.8 G/DL (14.2-18.0) L Hematocrit 33.4 % (42.0-52.0) L Mean Corpuscular Volume 86 FL (80-99) Mean Corpuscular Hemoglobin 25.3 PG (27.0-31.0) L Mean Corpuscular Hemoglobin Concent 29.5 G/DL (32.0-36.0) L Red Cell Distribution Width 26.0 % (11.6-14.8) H Platelet Count 186 K/UL (150-450) Mean Platelet Volume 6.5 FL (6.5-10.1) Neutrophils (%) (Auto) 61.0 % (45.0-75.0) Lymphocytes (%) (Auto) 25.0 % (20.0-45.0) Monocytes (%) (Auto) 10.6 % (1.0-10.0) H Eosinophils (%) (Auto) 1.3 % (0.0-3.0) Basophils (%) (Auto) 2.2 % (0.0-2.0) H Sodium Level 130 MMOL/L (136-145) L Potassium Level 4.7 MMOL/L (3.5-5.1) Chloride Level 94 MMOL/L (98-107) L Carbon Dioxide Level 25 MMOL/L (21-32) Anion Gap 12 mmol/L (5-15) Blood Urea Nitrogen 68 mg/dL (7-18) H Creatinine 4.9 MG/DL (0.55-1.30) H Estimat Glomerular Filtration Rate 12.0 mL/min (>60) Glucose Level 62 MG/DL (74-106) L Calcium Level 9.3 MG/DL (8.5-10.1) Phosphorus Level 3.8 MG/DL (2.5-4.9) Total Bilirubin 0.3 MG/DL (0.2-1.0) Aspartate Amino Transf (AST/SGOT) 64 U/L (15-37) H Alanine Aminotransferase (ALT/SGPT) 45 U/L (12-78) Alkaline Phosphatase 177 U/L (46-116) H Pro-B-Type Natriuretic Peptide > 82667 pg/mL (0-125) H Total Protein 9.1 G/DL (6.4-8.2) H Albumin 2.7 G/DL (3.4-5.0) L Globulin 6.4 g/dL Albumin/Globulin Ratio 0.4 (1.0-2.7) L Arterial Blood pH 7.217 (7.350-7.450) Arterial Blood Partial Pressure CO2 67.0 mmHg (35.0-45.0) *H Arterial Blood Partial Pressure O2 109.2 mmHg (75.0-100.0) H Arterial Blood HCO3 26.6 mmol/L (22.0-26.0) H Arterial Blood Oxygen Saturation 97.9 % (95-100) Arterial Blood Base Excess -2.0 (-2-2) Sathya Test Positive Malcolm Yun MD Sep 25, 2018 12:42
--- NOTE | 2018-09-25 15:00 | General Progress Note ---
Progress Note Progress Note pt seen and examined full note dictated Wanda Hughes MD Sep 25, 2018 15:00
--- NOTE | 2018-09-25 18:15 | Consultation ---
DATE OF CONSULTATION: 09/25/2018 CARDIOLOGY CONSULTATION CONSULTING PHYSICIAN: Malcolm Yun M.D. REFERRING PHYSICIAN: Jose George M.D. REASON FOR CONSULTATION: Management of hypertension, shortness of breath, and respiratory failure. HISTORY OF PRESENT ILLNESS: The patient is a 63-year-old gentleman with history of hypertension, end-stage renal disease, on hemodialysis, and dysphagia status post G-tube placement, who was brought to the emergency room for altered mental status and respiratory failure. The patient is in intensive care unit on BiPAP and is unable to provide any information. His pCO2 was over 100 and last hemodialysis was 2 days prior to the admission. At the time of my evaluation, the patient is in intensive care unit on BiPAP and is unable to provide any information. REVIEW OF SYSTEMS: Cannot be obtained. PAST MEDICAL HISTORY: As mentioned above. FAMILY HISTORY: Noncontributory. SOCIAL HISTORY: He is a skilled nursing resident. Does not smoke or drink alcohol. PHYSICAL EXAMINATION: VITAL SIGNS: Blood pressure 99/44, pulse 74, respirations 18, and he is afebrile. HEAD AND NECK: Show positive JVD. LUNGS: Coarse rhonchi. CARDIOVASCULAR: Shows regular S1 and S2 with no gallop. Dialysis access in the left subclavian. ABDOMEN: Soft. G-tube. EXTREMITIES: No pitting edema. LABORATORY AND DIAGNOSTIC DATA: His EKG showed sinus rhythm, no acute ST-T wave abnormalities, for LVH and left axis deviation, first-degree AV block, and has anterior T-wave inversion. His echocardiogram showed EF of 60% to 65%. His labs show white count of 5.9, hemoglobin 9.8, hematocrit 33.4, and platelet count of 186,000. Sodium 130, potassium 4.7, BUN of 68, and creatinine 4.9. Troponin 0.265 and 0.338. BNP is more than 35,000. ASSESSMENT AND PLAN: 1. Troponin leak, likely due to the patient's renal failure. Levels are flat at 0.3 and 0.3. The patient is already on hemodialysis. The patient is also on Coreg 6.25 mg b.i.d. that will be continued. 2. Hypotension. The patient is on midodrine. 3. Dysphagia, status post G-tube. 4. Respiratory failure. BNP of more than 35,000. The patient did not receive dialysis, on hemodialysis. His echocardiogram showed EF of 60% to 65%. 5. 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 The patient is on beta-valarie that will be continued. Thank you very much for allowing me to participate in the care of this patient. Please do not hesitate to contact me for any questions regarding my evaluation. Malcolm Yun M.D. DR: Iftikhar JOB#: [id number] CC:
--- NOTE | 2018-09-25 18:58 | Internal Med Progress Note ---
Subjective Date of Service: Sep 25, 2018 Physician Name Yoni Christianson Attending Physician Jose George MD Current Medications Medications (Trade) Dose Ordered Sig/João Route PRN Reason Start Time Stop Time Status Last Admin Dose Admin Acetaminophen (Tylenol) 650 mg Q4H PRN GT Fever 09/24/18 17:45 10/24/18 17:44 09/25/18 10:13 Albuterol/ Ipratropium (Albuterol/ Ipratropium) 3 ml Q4H PRN HHN Shortness of Breath 09/24/18 17:45 09/29/18 17:44 Carvedilol (Coreg) 6.25 mg EVERY 12 HOURS GT 09/24/18 21:00 10/24/18 20:59 09/24/18 20:45 Chlorhexidine Gluconate (Deb-Hex 2%) 1 applic DAILY@1999 TOPIC 09/25/18 20:00 10/25/18 19:59 Dextrose (Dextrose 50%) 25 ml Q30M PRN IV Hypoglycemia 09/24/18 17:45 10/24/18 17:43 Dextrose (Dextrose 50%) 50 ml Q30M PRN IV hypoglycemia 09/24/18 17:45 10/24/18 17:44 09/24/18 20:50 Heparin Sodium (Porcine) (Heparin 5000 units/ml) 5,000 units EVERY 12 HOURS SUBQ 09/24/18 21:00 10/24/18 20:59 09/25/18 08:41 Hydrocortisone (Cortef) 10 mg BID GT 09/24/18 18:00 10/24/18 17:59 09/25/18 17:47 Insulin Aspart (NovoLOG) Q6HR SUBQ 09/25/18 18:00 10/25/18 17:59 Lansoprazole (Prevacid) 30 mg DAILY GT 09/26/18 09:00 10/25/18 08:59 Midodrine (Pro-Amatine) 10 mg THREE TIMES A DAY GT 09/24/18 18:00 10/24/18 17:59 09/24/18 20:45 Ondansetron HCl (Zofran) 4 mg Q6H PRN IVP Nausea & Vomiting 09/24/18 17:45 10/24/18 17:44 Polyethylene Glycol (Miralax) 17 gm DAILYPRN PRN GT Constipation 09/24/18 17:45 10/24/18 17:44 Sevelamer Carbonate (Renvela) 2,400 mg THREE TIMES A DAY GT 09/24/18 18:00 10/24/18 17:59 09/25/18 17:47 Temazepam (Restoril) 15 mg HSPRN PRN GT Insomnia 09/24/18 17:45 10/01/18 17:44 Allergies: Coded Allergies: PENICILLINS (Verified Allergy, Unknown, 07/28/18) ROS Limited/Unobtainable: Yes Subjective 63 YO M admitted with respiratory failure. Now acute CHF exacerbation. Cover for Int med-Dr George. ICU Objective Last Vital Signs Date Time Temp Pulse Resp B/P (MAP) Pulse Ox O2 Delivery O2 Flow Rate FiO2 09/25/18 18:00 67 27 115/52 (73) 100 09/25/18 16:00 98.6 09/25/18 16:00 15.0 100 09/25/18 16:00 Venturi Mask Laboratory Tests Test 09/24/18 20:19 09/25/18 04:00 09/25/18 08:00 09/25/18 13:45 Troponin I 0.265 ng/mL (0.000-0.056) 0.338 ng/mL (0.000-0.056) White Blood Count 5.9 K/UL (4.8-10.8) Red Blood Count 3.89 M/UL (4.70-6.10) L Hemoglobin 9.8 G/DL (14.2-18.0) L Hematocrit 33.4 % (42.0-52.0) L Mean Corpuscular Volume 86 FL (80-99) Mean Corpuscular Hemoglobin 25.3 PG (27.0-31.0) L Mean Corpuscular Hemoglobin Concent 29.5 G/DL (32.0-36.0) L Red Cell Distribution Width 26.0 % (11.6-14.8) H Platelet Count 186 K/UL (150-450) Mean Platelet Volume 6.5 FL (6.5-10.1) Neutrophils (%) (Auto) 61.0 % (45.0-75.0) Lymphocytes (%) (Auto) 25.0 % (20.0-45.0) Monocytes (%) (Auto) 10.6 % (1.0-10.0) H Eosinophils (%) (Auto) 1.3 % (0.0-3.0) Basophils (%) (Auto) 2.2 % (0.0-2.0) H Sodium Level 130 MMOL/L (136-145) L Potassium Level 4.7 MMOL/L (3.5-5.1) Chloride Level 94 MMOL/L (98-107) L Carbon Dioxide Level 25 MMOL/L (21-32) Anion Gap 12 mmol/L (5-15) Blood Urea Nitrogen 68 mg/dL (7-18) H Creatinine 4.9 MG/DL (0.55-1.30) H Estimat Glomerular Filtration Rate 12.0 mL/min (>60) Glucose Level 62 MG/DL (74-106) L Calcium Level 9.3 MG/DL (8.5-10.1) Phosphorus Level 3.8 MG/DL (2.5-4.9) Total Bilirubin 0.3 MG/DL (0.2-1.0) Aspartate Amino Transf (AST/SGOT) 64 U/L (15-37) H Alanine Aminotransferase (ALT/SGPT) 45 U/L (12-78) Alkaline Phosphatase 177 U/L (46-116) H Pro-B-Type Natriuretic Peptide > 31197 pg/mL (0-125) H Total Protein 9.1 G/DL (6.4-8.2) H Albumin 2.7 G/DL (3.4-5.0) L Globulin 6.4 g/dL Albumin/Globulin Ratio 0.4 (1.0-2.7) L Arterial Blood pH 7.217 (7.350-7.450) Arterial Blood Partial Pressure CO2 67.0 mmHg (35.0-45.0) *H Arterial Blood Partial Pressure O2 109.2 mmHg (75.0-100.0) H Arterial Blood HCO3 26.6 mmol/L (22.0-26.0) H Arterial Blood Oxygen Saturation 97.9 % (95-100) Arterial Blood Base Excess -2.0 (-2-2) Sathya Test Positive Hepatitis B Surface Antigen Pending Intake and Output 09/24/18 09/25/18 18:59 06:59 Intake Total 150 ml 75 ml Output Total 0 ml Balance 150 ml 75 ml Intake Oral 0 ml Free Water 75 ml IV Total 150 ml Output Urine Total 0 ml Objective PHYSICAL EXAMINATION: GENERAL: The patient is a well-developed and well-nourished male, in moderate respiratory distress. HEENT: Eyes, pupils are equal and responsive to light and accommodation. Extraocular movements are intact. NECK: Supple without lymphadenopathy. CHEST: Venturi mask; Diffuse wheezes and crackles in bilateral bases. Otherwise, without wheezes or rales. CARDIOVASCULAR: Tachycardic. Regular rate. S1 and S2 are normal without murmurs, rubs, or gallops. ABDOMEN: Soft, nontender, and nondistended. Positive bowel sounds. No evidence of hepatosplenomegaly. Currently, no rebound or guarding noted. EXTREMITIES: Negative for clubbing, cyanosis, or edema. RECTAL/GENITAL: Not performed. NEUROLOGICAL: Unable to assess. Assessment/Plan Assessment/Plan ASSESSMENT: This is a 63-year-old male. 1. Respiratory failure. 2. Acute on chronic congestive heart failure. 3. End-stage renal disease. 4. Hypertension. 5. Dysphagia. 6. Dementia. TREATMENT: 1. Respiratory failure. The patient is currently on venturi mask. A Pulmonary consultation has been obtained with Dr. Ryna Traore. We will follow recommendations of Pulmonary. 2. Acute congestive heart failure. Cardiology consultation has been obtained with Dr. Malcolm Yun. We will follow recommendations of Cardiology. 3. End-stage renal disease. A Nephrology consultation has been obtained with Dr. Hughes. We will follow recommendations of Nephrology. 4. Hypertension. The patient is currently hypotensive. 5. Dysphagia. The patient is status post PEG placement. 6. Dementia. Yoni Christianson MD Sep 25, 2018 18:58
--- NOTE | 2018-09-25 18:59 | Cardiology Report ---
APPROVED REPORT EXAM: Two-dimensional and M-mode echocardiogram with Doppler and color Doppler. INDICATION LV FUNCTION M-Mode DIMENSIONS IVSd1.2 (0.7-1.1cm)Left Atrium (MM)3.7 (1.6-4.0cm) LVDd4.9 (3.5-5.6cm)Aortic Root3.4 (2.0-3.7cm) PWd1.2 (0.7-1.1cm)Aortic Cusp Exc.2.2 (1.5-2.0cm) IVSs1.6 cm LVDs3.1 (2.5-4.0cm) PWs1.9 cm Normal left ventricular chamber size, systolic function and wall motion . Left ventricular ejection fraction estimated to be 55-60%. Mild left ventricular hypertrophy. No evidence of pericardial effusion. All other cardiac chamber sizes are within normal limits. Aortic valve calcification with normal cusp excursion . Mildly thickened mitral valve leaflets with normal excursion. Mild mitral annulus and aortic root calcification. Pulmonic valve not well visualized. IVC not obtainable fue to GI-tube . A color flow and spectral Doppler study was performed and revealed: Mild aortic insufficiency . Mitral inflow indicates normal left ventricular diastolic function. Mild mitral regurgitation. Mild tricuspid regurgitation. Tricuspid systolic velocities suggests peak right ventricular systolic pressure of 32mmHg.
[2018-09-25] MEDS ORDERED: Dyna-Hex 2% Top Sol 2oz TOPIC SCH (20:00)
--- NOTE | 2018-09-25 20:15 | Consultation ---
DATE OF CONSULTATION: ADDENDUM ASSESSMENT: 1. End-stage renal disease. 2. Anemia of chronic kidney disease. 3. Renal osteodystrophy. 4. Hypokalemia. 5. Non-ST elevation CT. 6. Hypotension. 7. Fluid overload. PLAN: The patient to receive a dialysis today and tomorrow. Use albumin, low temperature, and high sodium dialysis bath for removing the fluid. I would start feeding IV fluids and we will start IV piggyback with normal saline. I will check a pre-albumin level for nutritional status. I would monitor electrolytes closely. At the end, I would like to thank Dr. Christianson for allowing to participate in the care of this patient. Wanda Hughes M.D. DR: HERB JOB#: [id number] CC:
[2018-09-26] VITALS (21 sets, daily range): BP systolic 100–138; BP diastolic 45–79
--- NOTE | 2018-09-26 02:15 | Consultation ---
DATE OF CONSULTATION: 09/25/2018 NOTE: INCOMPLETE DICTATION NEPHROLOGY CONSULTATION CONSULTING PHYSICIAN: Wanda Hughes M.D. REFERRING PHYSICIAN: Yoni Christianson M.D. REASON FOR CONSULTATION: End-stage renal disease, need for dialysis. HISTORY OF PRESENT ILLNESS: The patient is a 63-year-old male with past medical history significant for history of end-stage renal disease, anemia of chronic kidney disease, renal osteodystrophy, history of recent G-tube placement who was brought into the emergency room for shortness of breath. At the time of arrival, the patient was found to have pCO2 over 100. The patient was placed on BiPAP. unable to provide meaningful history, so most of the history obtained through reviewing the information. REVIEW OF SYSTEMS: Unable to obtain. PAST MEDICAL HISTORY: End-stage renal disease, anemia of chronic kidney disease, renal osteodystrophy, hypertension. PAST SURGICAL HISTORY: 1. History of AV fistula placement, which is not functioning at this time. 2. History of PEG placement. 3. History of PermCath placement. SOCIAL HISTORY: He lives at care home. There is no history of tobacco, alcohol, or drug use. MEDICATIONS: Medication list was reviewed. PHYSICAL EXAMINATION: VITAL SIGNS: The patient has temperature of 98, blood pressure 99/44, pulse rate of 74. HEAD AND NECK: Positive JVD. Extraocular movements intact. Pupils are reactive to light and accommodation. LUNGS: Bilateral crackles. CARDIAC: Regular rhythm. S1 and S2 normal. No murmurs or rubs. ABDOMEN: Soft. G-tube is in place. No organomegaly. EXTREMITIES: No edema. No clubbing. No cyanosis. LABORATORY AND DIAGNOSTIC DATA: Lab values revealed WBC count of 5.9, hemoglobin 9.8, hematocrit 32.4, and platelet count of 186,000. Sodium 130,, bicarbonate 25, BUN of 66, and creatinine of 4.9, glucose of 62, calcium of 9.3, phosphorus of 3.8. AST 64, ALT 75, alkaline phosphatase 177. ASSESSMENT: 1. End-stage renal disease. 2. Anemia of chronic kidney disease. 3. Renal osteodystrophy. 4. Hypokalemia. 5. Non-ST elevation [place]. 6. Hypotension. 7. Fluid overload. PLAN: The patient to receive a dialysis today and tomorrow. Use albumin, low temperature, and high sodium dialysis bath for removing the fluid. I would start feeding IV fluids and we will start IV piggyback with normal saline. I will check a pre-albumin level for nutritional status. I would monitor electrolytes closely. At the end, I would like to thank Dr. Christianson for allowing to participate in the care of this patient. Wanda Hughes M.D. DR: Nichole JOB#: [id number] CC: ROJAS
[2018-09-26 04:48] LABS: INR 1.1 (0.9-1.1)
[2018-09-26 05:06] LABS: BASOPHILS % (AUTO) 2.5 % (0.0-2.0); EOSINOPHILS % (AUTO) 4.4 % (0.0-3.0); HEMATOCRIT 34.2 % (42.0-52.0); HEMOGLOBIN 9.7 G/DL (14.2-18.0); LYMPHOCYTES % (AUTO) 27.4 % (20.0-45.0); MEAN CORPUSCULAR VOLUME 87 FL (80-99); MONOCYTES % (AUTO) 15.2 % (1.0-10.0); NEUTROPHILS % (AUTO) 50.5 % (45.0-75.0); PLATELET COUNT 171 K/UL (150-450); RED BLOOD COUNT 3.91 M/UL (4.70-6.10); WHITE BLOOD COUNT 6.8 K/UL (4.8-10.8)
[2018-09-26 05:34] LABS: ANION GAP 7 mmol/L (5-15); BLOOD UREA NITROGEN 53 mg/dL (7-18); CALCIUM 8.7 MG/DL (8.5-10.1); CARBON DIOXIDE 30 MMOL/L (21-32); CHLORIDE 97 MMOL/L (98-107); CREATININE 4.6 MG/DL (0.55-1.30); SODIUM 134 MMOL/L (136-145)
[2018-09-26] MEDS: NovoLOG Insulin Flexpen SUBQ SCH ×3 (05:47→18:35)
[2018-09-26] MEDS: Renvela 2400 mg pkt GT SCH ×3 (08:30→18:35)
[2018-09-26] MEDS: Midodrine 10mg tab GT SCH ×2 (08:31→12:28)
[2018-09-26] MEDS: Heparin 5000 units/ml inj SUBQ SCH ×2 (08:31→21:45)
[2018-09-26] MEDS: Carvedilol 6.25mg Tab GT SCH ×2 (08:32→21:00)
[2018-09-26] MEDS ORDERED: Acetaminophen 650mg/20.3ml GT PRN ×2 (09:15→17:28)
--- NOTE | 2018-09-26 10:07 | Pulmonolgy Critical Care Note ---
Critical Care - Asmt/Plan Problems: (1) Acute metabolic encephalopathy (2) Pleural effusion (3) Feeding by G-tube (4) ESRD (end stage renal disease) (5) Acute respiratory failure with hypoxia Respiratory: monitor respiratory rate, adjust FIO2, CXR Cardiac: continue pressors, continue to monitor HR/BP Renal: F/U I&O, keep IV fluid Infectious Disease: check cultures Gastrointestinal: continue feedings/current rate Hematologic: monitor H/H, transfuse if hgb<8.5 Neurologic: PRN Ativan, keep patient comfortable Affect: PRN ativan Notes Reviewed: mainframe systems administrator, cardio, renal Discussed with: nurses, consultants, case advocatecorporate legal manager - Objective Last 24 Hour Vital Signs Date Time Temp Pulse Resp B/P (MAP) Pulse Ox O2 Delivery O2 Flow Rate FiO2 09/26/18 09:00 85 20 128/61 (83) 100 09/26/18 08:32 68 153/76 09/26/18 08:00 2.0 09/26/18 08:00 97.5 72 22 129/56 (80) 98 09/26/18 08:00 Nasal Cannula 2.0 09/26/18 07:35 69 20 96 Nasal Cannula 2.0 28 09/26/18 07:34 95 Nasal Cannula 2.0 28 09/26/18 07:00 76 28 129/54 (79) 97 09/26/18 06:00 76 28 112/50 (70) 97 09/26/18 05:22 75 20 96 2.0 28 09/26/18 05:00 76 25 116/55 (75) 100 09/26/18 04:00 3.0 09/26/18 04:00 98.1 72 14 132/62 (85) 100 09/26/18 04:00 72 09/26/18 04:00 Nasal Cannula 3.0 09/26/18 03:00 71 23 102/50 (67) 100 09/26/18 02:33 67 19 100 Facial 30 09/26/18 02:00 69 16 110/49 (69) 100 09/26/18 01:05 71 18 100 Facial 30 09/26/18 01:00 68 22 100/45 (63) 100 09/26/18 00:00 98.7 68 26 110/50 (70) 100 09/26/18 00:00 Nasal Cannula 4.0 09/26/18 00:00 65 09/26/18 00:00 3.0 09/25/18 23:00 74 16 114/51 (72) 100 09/25/18 22:37 70 18 98 Facial 30 09/25/18 22:00 72 24 104/59 (74) 100 09/25/18 22:00 50 09/25/18 21:16 69 97/57 09/25/18 21:00 70 20 105/51 (69) 100 09/25/18 20:00 Venturi Mask 09/25/18 20:00 15.0 100 09/25/18 20:00 99.3 81 19 114/46 (68) 100 09/25/18 20:00 72 09/25/18 19:38 100 Non-Rebreather 14.0 100 09/25/18 19:37 69 20 100 Non-Rebreather 14.0 100 09/25/18 19:10 69 20 100 14.0 100 09/25/18 19:00 68 19 97/57 (70) 100 09/25/18 18:00 67 27 115/52 (73) 100 09/25/18 17:00 68 23 106/50 (68) 100 09/25/18 16:00 98.6 69 22 110/53 (72) 100 09/25/18 16:00 15.0 100 09/25/18 16:00 68 09/25/18 16:00 Venturi Mask 09/25/18 15:00 68 22 106/49 (68) 100 09/25/18 14:00 66 22 111/51 (71) 100 09/25/18 13:00 98.9 69 22 113/54 (73) 100 09/25/18 12:00 15.0 100 09/25/18 12:00 Venturi Mask 09/25/18 12:00 71 09/25/18 12:00 75 22 145/69 (94) 100 09/25/18 11:00 74 19 99/44 (62) 100 09/25/18 10:43 99.0 Status: awake, obtunded Condition: critical, improving HEENT: atraumatic Heart: HR/BP stable, HR/BP unstable Abdomen: non-tender, feeding tube Decubiti: location Micro: Microbiology Date/Time Source Procedure Growth Status 09/24/18 14:32 Blood Blood Culture - Preliminary NO GROWTH AFTER 24 HOURS Resulted 09/24/18 13:55 Blood Blood Culture - Preliminary NO GROWTH AFTER 24 HOURS Resulted 09/24/18 13:50 Nasal Nares MRSA Culture - Final Staphylococcus Aureus - Mrsa Complete 09/24/18 13:50 Rectum - Final NO CARBAPENEM-RESISTANT ENTEROBACTERI... Complete 09/24/18 13:50 Rectum VRE Culture - Final Enterococcus Faecalis - Vre Complete Accucheck: 79 Critical Care - Subjective ROS Limited/Unobtainable: Yes Condition: critical EKG Rhythm: Sinus Rhythm FI02: 28 Vent Support Mode: BiLevel Sputum Amount: None Tube Feeding Amount: 0 I&O: Intake and Output 09/25/18 09/26/18 19:00 07:00 Intake Total 285 ml 585 ml Output Total 0 ml 2000 ml Balance 285 ml -1415 ml Free Water 160 ml 30 ml Tube Feeding 125 ml 555 ml Output Urine Total 0 ml 0 ml Hemodialysis UF 2000 ml Labs: Laboratory Tests Test 09/25/18 13:45 09/26/18 04:00 09/26/18 04:05 09/26/18 07:45 Hepatitis B Surface Antigen Negative (NEGATIVE) White Blood Count 6.8 K/UL (4.8-10.8) Red Blood Count 3.91 M/UL (4.70-6.10) L Hemoglobin 9.7 G/DL (14.2-18.0) L Hematocrit 34.2 % (42.0-52.0) L Mean Corpuscular Volume 87 FL (80-99) Mean Corpuscular Hemoglobin 24.8 PG (27.0-31.0) L Mean Corpuscular Hemoglobin Concent 28.4 G/DL (32.0-36.0) L Red Cell Distribution Width 26.0 % (11.6-14.8) H Platelet Count 171 K/UL (150-450) Mean Platelet Volume 7.0 FL (6.5-10.1) Neutrophils (%) (Auto) 50.5 % (45.0-75.0) Lymphocytes (%) (Auto) 27.4 % (20.0-45.0) Monocytes (%) (Auto) 15.2 % (1.0-10.0) H Eosinophils (%) (Auto) 4.4 % (0.0-3.0) H Basophils (%) (Auto) 2.5 % (0.0-2.0) H Sodium Level 134 MMOL/L (136-145) L Potassium Level 4.0 MMOL/L (3.5-5.1) Chloride Level 97 MMOL/L (98-107) L Carbon Dioxide Level 30 MMOL/L (21-32) Anion Gap 7 mmol/L (5-15) Blood Urea Nitrogen 53 mg/dL (7-18) H Creatinine 4.6 MG/DL (0.55-1.30) H Estimat Glomerular Filtration Rate 12.9 mL/min (>60) Glucose Level 73 MG/DL (74-106) L Calcium Level 8.7 MG/DL (8.5-10.1) Troponin I 0.274 ng/mL (0.000-0.056) Prothrombin Time 12.1 SEC (9.30-11.50) H Prothromb Time International Ratio 1.1 (0.9-1.1) Activated Partial Thromboplast Time 33 SEC (23-33) Arterial Blood pH 7.250 (7.350-7.450) Arterial Blood Partial Pressure CO2 57.0 mmHg (35.0-45.0) *H Arterial Blood Partial Pressure O2 86.2 mmHg (75.0-100.0) Arterial Blood HCO3 24.4 mmol/L (22.0-26.0) Arterial Blood Oxygen Saturation 95.8 % (95-100) Arterial Blood Base Excess -3.3 (-2-2) L Sathya Test Positive Ryan Traore MD Sep 26, 2018 10:07
--- NOTE | 2018-09-26 11:34 | Pre-Procedure Note/Attestation ---
Pre-Procedure Note/Attestation Complete Prior to Procedure Planned Procedure: right Procedure Narrative: Thoracentesis Indications for Procedure Pre-Operative Diagnosis: Hypoxia Attestation I attest that I discussed the nature of the procedure; its benefits; risks and complications; and alternatives (and the risks and benefits of such alternatives ), prior to the procedure, with the patient (or the patient's legal outside energy sales representatives). I attest that, if there was a reasonable possibility of needing a blood transfusion, the patient (or the patient's legal outside energy sales representatives) was given the [facility] standardized written summary, pursuant to the Mart Abelardo Blood Safety Act ([place] Health and Safety Code # 1645, as amended). I attest that I re-evaluated the patient just prior to the surgery and that there has been no change in the patient's H&P, except as documented below: Timoteo Novak M.D. Sep 26, 2018 11:34
--- NOTE | 2018-09-26 11:50 | Internal Med Progress Note ---
Subjective Date of Service: Sep 26, 2018 Physician Name Christianson,Yoni Attending Physician Jose George MD Current Medications Medications (Trade) Dose Ordered Sig/João Route PRN Reason Start Time Stop Time Status Last Admin Dose Admin Acetaminophen (Tylenol) 650 mg Q4H PRN GT Mild Pain/fever 09/26/18 09:15 10/24/18 09:14 09/26/18 09:13 Albuterol/ Ipratropium (Albuterol/ Ipratropium) 3 ml Q4H PRN HHN Shortness of Breath 09/24/18 17:45 09/29/18 17:44 Carvedilol (Coreg) 6.25 mg EVERY 12 HOURS GT 09/24/18 21:00 10/24/18 20:59 09/25/18 21:16 Chlorhexidine Gluconate (Deb-Hex 2%) 1 applic DAILY@1999 TOPIC 09/25/18 20:00 10/25/18 19:59 09/25/18 21:16 Dextrose (Dextrose 50%) 25 ml Q30M PRN IV Hypoglycemia 09/24/18 17:45 10/24/18 17:43 Dextrose (Dextrose 50%) 50 ml Q30M PRN IV hypoglycemia 09/24/18 17:45 10/24/18 17:44 09/24/18 20:50 Heparin Sodium (Porcine) (Heparin 5000 units/ml) 5,000 units EVERY 12 HOURS SUBQ 09/24/18 21:00 10/24/18 20:59 09/26/18 08:31 Hydrocortisone (Cortef) 10 mg BID GT 09/24/18 18:00 10/24/18 17:59 09/26/18 08:30 Insulin Aspart (NovoLOG) Q6HR SUBQ 09/25/18 18:00 10/25/18 17:59 Lansoprazole (Prevacid) 30 mg DAILY GT 09/26/18 09:00 10/25/18 08:59 09/26/18 08:30 Midodrine (Pro-Amatine) 10 mg THREE TIMES A DAY GT 09/24/18 18:00 10/24/18 17:59 09/24/18 20:45 Ondansetron HCl (Zofran) 4 mg Q6H PRN IVP Nausea & Vomiting 09/24/18 17:45 10/24/18 17:44 Polyethylene Glycol (Miralax) 17 gm DAILYPRN PRN GT Constipation 09/24/18 17:45 10/24/18 17:44 Sevelamer Carbonate (Renvela) 2,400 mg THREE TIMES A DAY GT 09/24/18 18:00 10/24/18 17:59 09/26/18 08:30 Temazepam (Restoril) 15 mg HSPRN PRN GT Insomnia 09/24/18 17:45 10/01/18 17:44 09/25/18 21:16 Allergies: Coded Allergies: PENICILLINS (Verified Allergy, Unknown, 07/28/18) ROS Limited/Unobtainable: Yes Subjective 63 YO M admitted with respiratory failure. Now acute CHF exacerbation. Cover for Int med-Dr George. ICU Objective Last Vital Signs Date Time Temp Pulse Resp B/P (MAP) Pulse Ox O2 Delivery O2 Flow Rate FiO2 09/26/18 11:00 69 21 106/51 (69) 97 09/26/18 08:00 2.0 09/26/18 08:00 97.5 09/26/18 08:00 Nasal Cannula 09/26/18 07:35 28 Laboratory Tests Test 09/25/18 13:45 09/26/18 04:00 09/26/18 04:05 09/26/18 07:45 Hepatitis B Surface Antigen Negative (NEGATIVE) White Blood Count 6.8 K/UL (4.8-10.8) Red Blood Count 3.91 M/UL (4.70-6.10) L Hemoglobin 9.7 G/DL (14.2-18.0) L Hematocrit 34.2 % (42.0-52.0) L Mean Corpuscular Volume 87 FL (80-99) Mean Corpuscular Hemoglobin 24.8 PG (27.0-31.0) L Mean Corpuscular Hemoglobin Concent 28.4 G/DL (32.0-36.0) L Red Cell Distribution Width 26.0 % (11.6-14.8) H Platelet Count 171 K/UL (150-450) Mean Platelet Volume 7.0 FL (6.5-10.1) Neutrophils (%) (Auto) 50.5 % (45.0-75.0) Lymphocytes (%) (Auto) 27.4 % (20.0-45.0) Monocytes (%) (Auto) 15.2 % (1.0-10.0) H Eosinophils (%) (Auto) 4.4 % (0.0-3.0) H Basophils (%) (Auto) 2.5 % (0.0-2.0) H Sodium Level 134 MMOL/L (136-145) L Potassium Level 4.0 MMOL/L (3.5-5.1) Chloride Level 97 MMOL/L (98-107) L Carbon Dioxide Level 30 MMOL/L (21-32) Anion Gap 7 mmol/L (5-15) Blood Urea Nitrogen 53 mg/dL (7-18) H Creatinine 4.6 MG/DL (0.55-1.30) H Estimat Glomerular Filtration Rate 12.9 mL/min (>60) Glucose Level 73 MG/DL (74-106) L Calcium Level 8.7 MG/DL (8.5-10.1) Troponin I 0.274 ng/mL (0.000-0.056) Prothrombin Time 12.1 SEC (9.30-11.50) H Prothromb Time International Ratio 1.1 (0.9-1.1) Activated Partial Thromboplast Time 33 SEC (23-33) Arterial Blood pH 7.250 (7.350-7.450) Arterial Blood Partial Pressure CO2 57.0 mmHg (35.0-45.0) *H Arterial Blood Partial Pressure O2 86.2 mmHg (75.0-100.0) Arterial Blood HCO3 24.4 mmol/L (22.0-26.0) Arterial Blood Oxygen Saturation 95.8 % (95-100) Arterial Blood Base Excess -3.3 (-2-2) L Sathya Test Positive Microbiology Date/Time Source Procedure Growth Status 09/24/18 14:32 Blood Blood Culture - Preliminary NO GROWTH AFTER 24 HOURS Resulted 09/24/18 13:55 Blood Blood Culture - Preliminary NO GROWTH AFTER 24 HOURS Resulted 09/24/18 13:50 Nasal Nares MRSA Culture - Final Staphylococcus Aureus - Mrsa Complete 09/24/18 13:50 Rectum - Final NO CARBAPENEM-RESISTANT ENTEROBACTERI... Complete 09/24/18 13:50 Rectum VRE Culture - Final Enterococcus Faecalis - Vre Complete Intake and Output 09/25/18 09/26/18 19:00 07:00 Intake Total 285 ml 585 ml Output Total 0 ml 2000 ml Balance 285 ml -1415 ml Free Water 160 ml 30 ml Tube Feeding 125 ml 555 ml Output Urine Total 0 ml 0 ml Hemodialysis UF 2000 ml Objective PHYSICAL EXAMINATION: GENERAL: The patient is a well-developed and well-nourished male, in moderate respiratory distress. HEENT: Eyes, pupils are equal and responsive to light and accommodation. Extraocular movements are intact. NECK: Supple without lymphadenopathy. CHEST: Venturi mask; Diffuse wheezes and crackles in bilateral bases. Otherwise, without wheezes or rales. CARDIOVASCULAR: Tachycardic. Regular rate. S1 and S2 are normal without murmurs, rubs, or gallops. ABDOMEN: Soft, nontender, and nondistended. Positive bowel sounds. No evidence of hepatosplenomegaly. Currently, no rebound or guarding noted. EXTREMITIES: Negative for clubbing, cyanosis, or edema. RECTAL/GENITAL: Not performed. NEUROLOGICAL: Unable to assess. Assessment/Plan Assessment/Plan ASSESSMENT: This is a 63-year-old male. 1. Respiratory failure. 2. Acute on chronic congestive heart failure. 3. End-stage renal disease. 4. Hypertension. 5. Dysphagia. 6. Dementia. TREATMENT: 1. Respiratory failure. The patient is currently on venturi mask. A Pulmonary consultation has been obtained with Dr. Ryan Traore. We will follow recommendations of Pulmonary. 2. Acute congestive heart failure. ?volume overload? Cardiology consultation has been obtained with Dr. Malcolm Yun. We will follow recommendations of Cardiology. 3. End-stage renal disease. A Nephrology consultation has been obtained with Dr. Hughes. We will follow recommendations of Nephrology. 4. Hypertension. The patient is currently hypotensive. 5. Dysphagia. The patient is status post PEG placement. 6. Dementia. Yoni Christianson MD Sep 26, 2018 11:50
--- NOTE | 2018-09-26 12:26 | Cardiac Electrophysiology PN ---
Assessment/Plan Assessment/Plan 1. Troponin leak, likely due to the patient's renal failure. Levels are flat at 0.3 and 0.3. The patient is already on hemodialysis. On Coreg 6.25 mg b.i.d. No CP 2. Hypotension. Decrease midodrine to 5 tid. 3. Dysphagia, status post G-tube. 4. Respiratory failure. BNP of more than 35,000. The patient did not receive dialysis, on hemodialysis. Echo showed EF of 60% to 65%. 5. 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 The patient is on beta-valarie that will be continued. Subjective Subjective Got HD today. BP stable off pressors Objective Last 24 Hour Vital Signs Date Time Temp Pulse Resp B/P (MAP) Pulse Ox O2 Delivery O2 Flow Rate FiO2 09/26/18 12:00 2.0 09/26/18 12:00 Nasal Cannula 2.0 09/26/18 12:00 97.8 69 19 119/61 (80) 97 09/26/18 11:00 69 21 106/51 (69) 97 09/26/18 10:00 70 23 116/61 (79) 98 09/26/18 09:00 85 20 128/61 (83) 100 09/26/18 08:32 68 153/76 09/26/18 08:00 73 09/26/18 08:00 2.0 09/26/18 08:00 97.5 72 22 129/56 (80) 98 09/26/18 08:00 Nasal Cannula 2.0 09/26/18 07:35 69 20 96 Nasal Cannula 2.0 28 09/26/18 07:34 95 Nasal Cannula 2.0 28 09/26/18 07:00 76 28 129/54 (79) 97 09/26/18 06:00 76 28 112/50 (70) 97 09/26/18 05:22 75 20 96 2.0 28 09/26/18 05:00 76 25 116/55 (75) 100 09/26/18 04:00 3.0 09/26/18 04:00 98.1 72 14 132/62 (85) 100 09/26/18 04:00 72 09/26/18 04:00 Nasal Cannula 3.0 09/26/18 03:00 71 23 102/50 (67) 100 09/26/18 02:33 67 19 100 Facial 30 09/26/18 02:00 69 16 110/49 (69) 100 09/26/18 01:05 71 18 100 Facial 30 09/26/18 01:00 68 22 100/45 (63) 100 09/26/18 00:00 98.7 68 26 110/50 (70) 100 09/26/18 00:00 Nasal Cannula 4.0 09/26/18 00:00 65 09/26/18 00:00 3.0 09/25/18 23:00 74 16 114/51 (72) 100 09/25/18 22:37 70 18 98 Facial 30 09/25/18 22:00 72 24 104/59 (74) 100 09/25/18 22:00 50 09/25/18 21:16 69 97/57 09/25/18 21:00 70 20 105/51 (69) 100 09/25/18 20:00 Venturi Mask 09/25/18 20:00 15.0 100 09/25/18 20:00 99.3 81 19 114/46 (68) 100 09/25/18 20:00 72 09/25/18 19:38 100 Non-Rebreather 14.0 100 09/25/18 19:37 69 20 100 Non-Rebreather 14.0 100 09/25/18 19:10 69 20 100 14.0 100 09/25/18 19:00 68 19 97/57 (70) 100 09/25/18 18:00 67 27 115/52 (73) 100 09/25/18 17:00 68 23 106/50 (68) 100 09/25/18 16:00 98.6 69 22 110/53 (72) 100 09/25/18 16:00 15.0 100 09/25/18 16:00 68 09/25/18 16:00 Venturi Mask 09/25/18 15:00 68 22 106/49 (68) 100 09/25/18 14:00 66 22 111/51 (71) 100 09/25/18 13:00 98.9 69 22 113/54 (73) 100 Intake and Output 09/25/18 09/26/18 19:00 07:00 Intake Total 285 ml 585 ml Output Total 0 ml 2000 ml Balance 285 ml -1415 ml Free Water 160 ml 30 ml Tube Feeding 125 ml 555 ml Output Urine Total 0 ml 0 ml Hemodialysis UF 2000 ml Laboratory Tests Test 09/25/18 13:45 09/26/18 04:00 09/26/18 04:05 09/26/18 07:45 Hepatitis B Surface Antigen Negative (NEGATIVE) White Blood Count 6.8 K/UL (4.8-10.8) Red Blood Count 3.91 M/UL (4.70-6.10) L Hemoglobin 9.7 G/DL (14.2-18.0) L Hematocrit 34.2 % (42.0-52.0) L Mean Corpuscular Volume 87 FL (80-99) Mean Corpuscular Hemoglobin 24.8 PG (27.0-31.0) L Mean Corpuscular Hemoglobin Concent 28.4 G/DL (32.0-36.0) L Red Cell Distribution Width 26.0 % (11.6-14.8) H Platelet Count 171 K/UL (150-450) Mean Platelet Volume 7.0 FL (6.5-10.1) Neutrophils (%) (Auto) 50.5 % (45.0-75.0) Lymphocytes (%) (Auto) 27.4 % (20.0-45.0) Monocytes (%) (Auto) 15.2 % (1.0-10.0) H Eosinophils (%) (Auto) 4.4 % (0.0-3.0) H Basophils (%) (Auto) 2.5 % (0.0-2.0) H Sodium Level 134 MMOL/L (136-145) L Potassium Level 4.0 MMOL/L (3.5-5.1) Chloride Level 97 MMOL/L (98-107) L Carbon Dioxide Level 30 MMOL/L (21-32) Anion Gap 7 mmol/L (5-15) Blood Urea Nitrogen 53 mg/dL (7-18) H Creatinine 4.6 MG/DL (0.55-1.30) H Estimat Glomerular Filtration Rate 12.9 mL/min (>60) Glucose Level 73 MG/DL (74-106) L Calcium Level 8.7 MG/DL (8.5-10.1) Troponin I 0.274 ng/mL (0.000-0.056) Prothrombin Time 12.1 SEC (9.30-11.50) H Prothromb Time International Ratio 1.1 (0.9-1.1) Activated Partial Thromboplast Time 33 SEC (23-33) Arterial Blood pH 7.250 (7.350-7.450) Arterial Blood Partial Pressure CO2 57.0 mmHg (35.0-45.0) *H Arterial Blood Partial Pressure O2 86.2 mmHg (75.0-100.0) Arterial Blood HCO3 24.4 mmol/L (22.0-26.0) Arterial Blood Oxygen Saturation 95.8 % (95-100) Arterial Blood Base Excess -3.3 (-2-2) L Sathya Test Positive Microbiology Date/Time Source Procedure Growth Status 09/24/18 14:32 Blood Blood Culture - Preliminary NO GROWTH AFTER 24 HOURS Resulted 09/24/18 13:55 Blood Blood Culture - Preliminary NO GROWTH AFTER 24 HOURS Resulted 09/24/18 13:50 Nasal Nares MRSA Culture - Final Staphylococcus Aureus - Mrsa Complete 09/24/18 13:50 Rectum - Final NO CARBAPENEM-RESISTANT ENTEROBACTERI... Complete 09/24/18 13:50 Rectum VRE Culture - Final Enterococcus Faecalis - Vre Complete Objective HEAD AND NECK: Show positive JVD. LUNGS: Coarse rhonchi. CARDIOVASCULAR: Shows regular S1 and S2 with no gallop. Dialysis access in the left subclavian. ABDOMEN: Soft. G-tube. EXTREMITIES: No pitting edema. Malcolm Yun MD Sep 26, 2018 12:26
--- NOTE | 2018-09-26 13:24 | Nephrology Progress Note ---
Assessment/Plan Assessment 1. End-stage renal disease. 2. Anemia of chronic kidney disease. 3. Renal osteodystrophy. 4. Hypokalemia. 5. Non-ST elevation MT. 6. Hypotension. 7. Fluid overload. Plan dialysis today continue epogen monitoring phos replace electrolyte as need it Subjective ROS Limited/Unobtainable: Yes Subjective Off the mask on 2 litter NC on hemodialysis Objective Objective Last 24 Hour Vital Signs Date Time Temp Pulse Resp B/P (MAP) Pulse Ox O2 Delivery O2 Flow Rate FiO2 09/26/18 13:00 70 16 119/53 (75) 98 09/26/18 12:00 65 09/26/18 12:00 2.0 09/26/18 12:00 Nasal Cannula 2.0 09/26/18 12:00 97.8 69 19 119/61 (80) 97 09/26/18 11:00 69 21 106/51 (69) 97 09/26/18 10:00 70 23 116/61 (79) 98 09/26/18 09:00 85 20 128/61 (83) 100 09/26/18 08:32 68 153/76 09/26/18 08:00 73 09/26/18 08:00 2.0 09/26/18 08:00 97.5 72 22 129/56 (80) 98 09/26/18 08:00 Nasal Cannula 2.0 09/26/18 07:35 69 20 96 Nasal Cannula 2.0 28 09/26/18 07:34 95 Nasal Cannula 2.0 28 09/26/18 07:00 76 28 129/54 (79) 97 09/26/18 06:00 76 28 112/50 (70) 97 09/26/18 05:22 75 20 96 2.0 28 09/26/18 05:00 76 25 116/55 (75) 100 09/26/18 04:00 3.0 09/26/18 04:00 98.1 72 14 132/62 (85) 100 09/26/18 04:00 72 09/26/18 04:00 Nasal Cannula 3.0 09/26/18 03:00 71 23 102/50 (67) 100 09/26/18 02:33 67 19 100 Facial 30 09/26/18 02:00 69 16 110/49 (69) 100 09/26/18 01:05 71 18 100 Facial 30 09/26/18 01:00 68 22 100/45 (63) 100 09/26/18 00:00 98.7 68 26 110/50 (70) 100 09/26/18 00:00 Nasal Cannula 4.0 09/26/18 00:00 65 09/26/18 00:00 3.0 09/25/18 23:00 74 16 114/51 (72) 100 09/25/18 22:37 70 18 98 Facial 30 09/25/18 22:00 72 24 104/59 (74) 100 09/25/18 22:00 50 09/25/18 21:16 69 97/57 09/25/18 21:00 70 20 105/51 (69) 100 09/25/18 20:00 Venturi Mask 09/25/18 20:00 15.0 100 09/25/18 20:00 99.3 81 19 114/46 (68) 100 09/25/18 20:00 72 09/25/18 19:38 100 Non-Rebreather 14.0 100 09/25/18 19:37 69 20 100 Non-Rebreather 14.0 100 09/25/18 19:10 69 20 100 14.0 100 09/25/18 19:00 68 19 97/57 (70) 100 09/25/18 18:00 67 27 115/52 (73) 100 09/25/18 17:00 68 23 106/50 (68) 100 09/25/18 16:00 98.6 69 22 110/53 (72) 100 09/25/18 16:00 15.0 100 09/25/18 16:00 68 09/25/18 16:00 Venturi Mask 09/25/18 15:00 68 22 106/49 (68) 100 09/25/18 14:00 66 22 111/51 (71) 100 Intake and Output 09/25/18 09/26/18 19:00 07:00 Intake Total 285 ml 585 ml Output Total 0 ml 2000 ml Balance 285 ml -1415 ml Free Water 160 ml 30 ml Tube Feeding 125 ml 555 ml Output Urine Total 0 ml 0 ml Hemodialysis UF 2000 ml Laboratory Tests 09/25/18 13:45: Hepatitis B Surface Antigen Negative 09/26/18 04:00: White Blood Count 6.8, Red Blood Count 3.91L, Hemoglobin 9.7L, Hematocrit 34.2L , Mean Corpuscular Volume 87, Mean Corpuscular Hemoglobin 24.8L, Mean Corpuscular Hemoglobin Concent 28.4L, Red Cell Distribution Width 26.0H, Platelet Count 171, Mean Platelet Volume 7.0, Neutrophils (%) (Auto) 50.5, Lymphocytes (%) (Auto) 27.4, Monocytes (%) (Auto) 15.2H, Eosinophils (%) (Auto) 4.4H, Basophils (%) (Auto) 2.5H, Sodium Level 134L, Potassium Level 4.0, Chloride Level 97L, Carbon Dioxide Level 30, Anion Gap 7, Blood Urea Nitrogen 53H, Creatinine 4.6H, Estimat Glomerular Filtration Rate 12.9, Glucose Level 73L , Calcium Level 8.7, Troponin I 0.274H 09/26/18 04:05: Prothrombin Time 12.1H, Prothromb Time International Ratio 1.1, Activated Partial Thromboplast Time 33 09/26/18 07:45: Arterial Blood pH 7.250*L, Arterial Blood Partial Pressure CO2 57.0*H, Arterial Blood Partial Pressure O2 86.2, Arterial Blood HCO3 24.4, Arterial Blood Oxygen Saturation 95.8, Arterial Blood Base Excess -3.3L, Sathya Test Positive Height (Feet): 5 Height (Inches): 10.00 Weight (Pounds): 174 Objective HEAD AND NECK: Positive JVD. Extraocular movements intact. Pupils are reactive to light and accommodation. LUNGS: Bilateral crackles. CARDIAC: Regular rhythm. S1 and S2 normal. No murmurs or rubs. ABDOMEN: Soft. G-tube is in place. No organomegaly. EXTREMITIES: No edema. No clubbing. No cyanosis. Wanda Hughes MD Sep 26, 2018 13:24
[2018-09-26] MEDS ORDERED: Albuterol/Ipratropium 3ml neb HHN PRN (17:29)
[2018-09-26] MEDS ORDERED: Miralax 17gm pkt GT PRN (17:29)
--- NOTE | 2018-09-26 18:15 | Cardiology Report ---
APPROVED REPORT EKG Measurement Heart [id number] Sinus rhythm with 1st degree AV block Left axis deviation Inferior infarct, age undetermined Anterior infarct, age undetermined Abnormal ECG
--- NOTE | 2018-09-26 18:47 | Cardiology Report ---
APPROVED REPORT EKG Measurement Heart [id number] [place] [id number] Sinus rhythm with 1st degree AV block Left axis deviation Minimal voltage criteria for LVH, may be normal variant Inferior infarct, age undetermined Anterior infarct, age undetermined Abnormal ECG
[2018-09-26] MEDS: Dyna-Hex 2% Top Sol 2oz TOPIC SCH (20:00)
[2018-09-27] VITALS: BP 129/71
[2018-09-27 04:00] VITALS: BP 134/62
[2018-09-27] MEDS: NovoLOG Insulin Flexpen SUBQ SCH ×5 (05:37→23:30)
[2018-09-27 07:35] LABS: BASOPHILS % (AUTO) 1.5 % (0.0-2.0); EOSINOPHILS % (AUTO) 2.8 % (0.0-3.0); HEMATOCRIT 37.7 % (42.0-52.0); HEMOGLOBIN 10.9 G/DL (14.2-18.0); LYMPHOCYTES % (AUTO) 28.1 % (20.0-45.0); MEAN CORPUSCULAR VOLUME 87 FL (80-99); MONOCYTES % (AUTO) 11.2 % (1.0-10.0); NEUTROPHILS % (AUTO) 56.4 % (45.0-75.0); PLATELET COUNT 170 K/UL (150-450); RED BLOOD COUNT 4.35 M/UL (4.70-6.10); RED CELL DISTRIBUTION WIDTH 25.9 % (11.6-14.8); WHITE BLOOD COUNT 6.1 K/UL (4.8-10.8)
[2018-09-27 08:00] VITALS: BP_SYST 104; BP_SYST 134; BP_DIAS 57; BP_DIAS 62
[2018-09-27 08:08] LABS: ALANINE AMINOTRANSFERASE 32 U/L (12-78); ALBUMIN 2.9 G/DL (3.4-5.0); ALBUMIN/GLOBULIN RATIO 0.4 (1.0-2.7); ALKALINE PHOSPHATASE 157 U/L (46-116); ANION GAP 10 mmol/L (5-15); ASPARTATE AMINO TRANSFERASE 39 U/L (15-37); BILIRUBIN,TOTAL 0.4 MG/DL (0.2-1.0); BLOOD UREA NITROGEN 45 mg/dL (7-18); CALCIUM 9.1 MG/DL (8.5-10.1); CARBON DIOXIDE 26 MMOL/L (21-32); CHLORIDE 98 MMOL/L (98-107); CREATININE 4.4 MG/DL (0.55-1.30); POTASSIUM 3.9 MMOL/L (3.5-5.1); SODIUM 134 MMOL/L (136-145)
[2018-09-27] MEDS: Carvedilol 6.25mg Tab GT SCH ×2 (09:00→20:50)
[2018-09-27] MEDS: HYDROcodone/Acetamin 5/325 tab ORAL PRN ×2 (10:10→18:10)
[2018-09-27] MEDS: Heparin 5000 units/ml inj SUBQ SCH ×2 (10:12→20:51)
[2018-09-27] MEDS: Renvela 2400 mg pkt GT SCH ×3 (10:13→17:52)
--- NOTE | 2018-09-27 10:33 | Cardiac Electrophysiology PN ---
Assessment/Plan Assessment/Plan 1. Troponin leak, likely due to the renal failure. Levels are flat at 0.3 and 0.3. The patient is already on hemodialysis. On Coreg 6.25 mg b.i.d. No CP 2. Hypotension. DC midodrine 3. Dysphagia, status post G-tube. Swallow eval pending 4. Respiratory failure. BNP of more than 35,000 on hemodialysis. Echo showed EF of 60% to 65%. 5. 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 The patient is on beta-valarie that will be continued. Subjective Subjective Got HD yesterday. Swallow eval pending. BP stable off pressors Objective Last 24 Hour Vital Signs Date Time Temp Pulse Resp B/P (MAP) Pulse Ox O2 Delivery O2 Flow Rate FiO2 09/27/18 08:30 67 18 98 Nasal Cannula 2.0 28 09/27/18 08:30 98 Nasal Cannula 2.0 28 09/27/18 08:00 97.3 70 20 104/57 (73) 100 09/27/18 08:00 2.0 09/27/18 04:00 2.0 09/27/18 04:00 98.1 70 18 134/62 (86) 97 09/27/18 00:00 97.4 67 18 129/71 (90) 99 09/27/18 00:00 70 09/26/18 21:00 Nasal Cannula 2.0 09/26/18 21:00 56 138/79 09/26/18 21:00 97.7 56 18 138/79 (98) 95 09/26/18 21:00 2.0 09/26/18 20:25 70 20 98 Nasal Cannula 2.0 28 09/26/18 20:25 98 Nasal Cannula 2.0 28 09/26/18 20:00 97.7 56 18 138/79 (98) 95 09/26/18 20:00 65 09/26/18 18:57 98.5 70 18 132/68 (89) 98 09/26/18 17:00 65 16 125/65 (85) 100 09/26/18 16:00 98.3 63 15 135/66 (89) 100 09/26/18 16:00 Nasal Cannula 2.0 09/26/18 16:00 68 09/26/18 16:00 2.0 09/26/18 15:00 69 19 119/55 (76) 100 09/26/18 14:00 67 16 128/59 (82) 100 09/26/18 13:00 70 16 119/53 (75) 98 09/26/18 12:00 65 09/26/18 12:00 2.0 09/26/18 12:00 Nasal Cannula 2.0 09/26/18 12:00 97.8 69 19 119/61 (80) 97 09/26/18 11:00 69 21 106/51 (69) 97 Intake and Output 09/26/18 09/27/18 18:59 06:59 Intake Total 460 ml Output Total 3000 ml Balance -2540 ml Free Water 190 ml Tube Feeding 270 ml Output Urine Total 0 ml Hemodialysis UF 2000 ml Other 1000 ml Laboratory Tests Test 09/26/18 12:55 09/26/18 17:50 09/27/18 05:40 Body Fluid Source Thoracentesis Body Fluid Volume 25 mL Body Fluid Appearance Hazy (Clear) Body Fluid RBC 1395 /CUMM Body Fluid Total Nucleated Cells 185 /CUMM Body Fluid Polynuclear WBCs (%) 13 % Body Fluid Mononuclear WBCs (%) 77 % Body Fluid Mesothelial Cells (%) 10 % Body Fluid Glucose Pending Body Fluid Total Protein Pending Body Fluid Albumin Pending Troponin I 0.151 ng/mL (0.000-0.056) White Blood Count 6.1 K/UL (4.8-10.8) Red Blood Count 4.35 M/UL (4.70-6.10) L Hemoglobin 10.9 G/DL (14.2-18.0) L Hematocrit 37.7 % (42.0-52.0) L Mean Corpuscular Volume 87 FL (80-99) Mean Corpuscular Hemoglobin 25.0 PG (27.0-31.0) L Mean Corpuscular Hemoglobin Concent 28.8 G/DL (32.0-36.0) L Red Cell Distribution Width 25.9 % (11.6-14.8) H Platelet Count 170 K/UL (150-450) Mean Platelet Volume 7.4 FL (6.5-10.1) Neutrophils (%) (Auto) 56.4 % (45.0-75.0) Lymphocytes (%) (Auto) 28.1 % (20.0-45.0) Monocytes (%) (Auto) 11.2 % (1.0-10.0) H Eosinophils (%) (Auto) 2.8 % (0.0-3.0) Basophils (%) (Auto) 1.5 % (0.0-2.0) Sodium Level 134 MMOL/L (136-145) L Potassium Level 3.9 MMOL/L (3.5-5.1) Chloride Level 98 MMOL/L (98-107) Carbon Dioxide Level 26 MMOL/L (21-32) Anion Gap 10 mmol/L (5-15) Blood Urea Nitrogen 45 mg/dL (7-18) H Creatinine 4.4 MG/DL (0.55-1.30) H Estimat Glomerular Filtration Rate 13.6 mL/min (>60) Glucose Level 58 MG/DL (74-106) L Calcium Level 9.1 MG/DL (8.5-10.1) Total Bilirubin 0.4 MG/DL (0.2-1.0) Aspartate Amino Transf (AST/SGOT) 39 U/L (15-37) H Alanine Aminotransferase (ALT/SGPT) 32 U/L (12-78) Alkaline Phosphatase 157 U/L (46-116) H Pro-B-Type Natriuretic Peptide > 17039 pg/mL (0-125) H Total Protein 9.6 G/DL (6.4-8.2) H Albumin 2.9 G/DL (3.4-5.0) L Globulin 6.7 g/dL Albumin/Globulin Ratio 0.4 (1.0-2.7) L Microbiology Date/Time Source Procedure Growth Status 09/24/18 14:32 Blood Blood Culture - Preliminary NO GROWTH AFTER 48 HOURS Resulted 09/24/18 13:55 Blood Blood Culture - Preliminary NO GROWTH AFTER 48 HOURS Resulted 09/24/18 13:50 Nasal Nares MRSA Culture - Final Staphylococcus Aureus - Mrsa Complete 09/24/18 13:50 Rectum - Final NO CARBAPENEM-RESISTANT ENTEROBACTERI... Complete 09/24/18 13:50 Rectum VRE Culture - Final Enterococcus Faecalis - Vre Complete Objective HEAD AND NECK: Show positive JVD. LUNGS: Coarse rhonchi. CARDIOVASCULAR: Shows regular S1 and S2 with no gallop. Dialysis access in the left subclavian. ABDOMEN: Soft. G-tube. EXTREMITIES: No pitting edema. Malcolm Yun MD Sep 27, 2018 10:33
--- NOTE | 2018-09-27 10:51 | Nephrology Progress Note ---
Assessment/Plan Assessment 1. End-stage renal disease. 2. Anemia of chronic kidney disease. 3. Renal osteodystrophy. 4. Hypokalemia. 5. Non-ST elevation DC. 6. Hypotension. 7. Fluid overload. Plan dialysis today continue epogen monitoring phos replace electrolyte as need it Subjective Subjective had dialysis yesterday Objective Objective Last 24 Hour Vital Signs Date Time Temp Pulse Resp B/P (MAP) Pulse Ox O2 Delivery O2 Flow Rate FiO2 09/27/18 08:30 67 18 98 Nasal Cannula 2.0 28 09/27/18 08:30 98 Nasal Cannula 2.0 28 09/27/18 08:00 97.3 70 20 104/57 (73) 100 09/27/18 08:00 2.0 09/27/18 07:38 69 09/27/18 04:00 2.0 09/27/18 04:00 98.1 70 18 134/62 (86) 97 09/27/18 00:00 97.4 67 18 129/71 (90) 99 09/27/18 00:00 70 09/26/18 21:00 Nasal Cannula 2.0 09/26/18 21:00 56 138/79 09/26/18 21:00 97.7 56 18 138/79 (98) 95 09/26/18 21:00 2.0 09/26/18 20:25 70 20 98 Nasal Cannula 2.0 28 09/26/18 20:25 98 Nasal Cannula 2.0 28 09/26/18 20:00 97.7 56 18 138/79 (98) 95 09/26/18 20:00 65 09/26/18 18:57 98.5 70 18 132/68 (89) 98 09/26/18 17:00 65 16 125/65 (85) 100 09/26/18 16:00 98.3 63 15 135/66 (89) 100 09/26/18 16:00 Nasal Cannula 2.0 09/26/18 16:00 68 09/26/18 16:00 2.0 09/26/18 15:00 69 19 119/55 (76) 100 09/26/18 14:00 67 16 128/59 (82) 100 09/26/18 13:00 70 16 119/53 (75) 98 09/26/18 12:00 65 09/26/18 12:00 2.0 09/26/18 12:00 Nasal Cannula 2.0 09/26/18 12:00 97.8 69 19 119/61 (80) 97 09/26/18 11:00 69 21 106/51 (69) 97 Intake and Output 09/26/18 09/27/18 18:59 06:59 Intake Total 460 ml Output Total 3000 ml Balance -2540 ml Free Water 190 ml Tube Feeding 270 ml Output Urine Total 0 ml Hemodialysis UF 2000 ml Other 1000 ml Laboratory Tests 09/26/18 12:55: Body Fluid Source Thoracentesis, Body Fluid Volume 25, Body Fluid Appearance Hazy, Body Fluid RBC 1395, Body Fluid Total Nucleated Cells 185, Body Fluid Polynuclear WBCs (%) 13, Body Fluid Mononuclear WBCs (%) 77, Body Fluid Mesothelial Cells (%) 10, Body Fluid Glucose [Pending], Body Fluid Total Protein [Pending], Body Fluid Albumin [Pending] 09/26/18 17:50: Troponin I 0.151H 09/27/18 05:40: White Blood Count 6.1, Red Blood Count 4.35L, Hemoglobin 10.9L, Hematocrit 37.7L , Mean Corpuscular Volume 87, Mean Corpuscular Hemoglobin 25.0L, Mean Corpuscular Hemoglobin Concent 28.8L, Red Cell Distribution Width 25.9H, Platelet Count 170, Mean Platelet Volume 7.4, Neutrophils (%) (Auto) 56.4, Lymphocytes (%) (Auto) 28.1, Monocytes (%) (Auto) 11.2H, Eosinophils (%) (Auto) 2.8, Basophils (%) (Auto) 1.5, Sodium Level 134L, Potassium Level 3.9, Chloride Level 98, Carbon Dioxide Level 26, Anion Gap 10, Blood Urea Nitrogen 45H, Creatinine 4.4H, Estimat Glomerular Filtration Rate 13.6, Glucose Level 58L, Calcium Level 9.1, Total Bilirubin 0.4, Aspartate Amino Transf (AST/SGOT) 39H, Alanine Aminotransferase (ALT/SGPT) 32, Alkaline Phosphatase 157H, Pro-B-Type Natriuretic Peptide > 38005L, Total Protein 9.6H, Albumin 2.9L, Globulin 6.7, Albumin/Globulin Ratio 0.4L Height (Feet): 5 Height (Inches): 10.00 Weight (Pounds): 171 Objective HEAD AND NECK: Positive JVD. Extraocular movements intact. Pupils are reactive to light and accommodation. LUNGS: Bilateral crackles. CARDIAC: Regular rhythm. S1 and S2 normal. No murmurs or rubs. ABDOMEN: Soft. G-tube is in place. No organomegaly. EXTREMITIES: No edema. No clubbing. No cyanosis. Wanda Hughes MD Sep 27, 2018 10:51
[2018-09-27 12:00] VITALS: BP 109/68
--- NOTE | 2018-09-27 12:49 | Diagnostic Imaging Report ---
Indication: Dyspnea Comparison: 09/26/2018 A single view chest radiograph was obtained. Findings: Pulmonary vascular congestion suspected. Accounting for differences in technique there is probably no change. There is a left-sided permacath again noted unchanged. Cardiomegaly is stable. 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
[2018-09-27] MEDS: DiphenhydrAMINE 25mg/10ml Elixir GT PRN (13:14)
--- NOTE | 2018-09-27 13:52 | Diagnostic Imaging Report ---
Indication: Dysphagia Procedure and findings: A single manager practice fluoroscopic image of the neck performed in the lateral projection followed by real-time fluoroscopic video/cine imaging performed in a lateral projection in conjunction with the speech pathologist evaluation. Variable consistencies of barium given per mouth. Findings: Significant abnormalities of both oral and pharyngeal phases of swallowing are demonstrated. Total fluoroscopic time: 184 seconds. Total number of fluoroscopic images obtained: 6 No penetration or aspiration identified. Abnormal video swallow. Please refer to speech pathology evaluation for more information.
[2018-09-27 16:00] VITALS: BP 137/76
[2018-09-27] MEDS ORDERED: RENVELA0.8 GM GT (18:24)
--- NOTE | 2018-09-27 18:27 | Pulmonology Progress Note ---
Assessment/Plan Problems: (1) Acute respiratory failure with hypoxia (2) Acute metabolic encephalopathy (3) Pleural effusion (4) CHF (congestive heart failure) (5) AV fistula occlusion (6) ESRD (end stage renal disease) (7) Feeding by G-tube Assessment/Plan 1000 cc removed from right chest yesterday HD done today improving continue current meds dc planning Subjective ROS Limited/Unobtainable: No Constitutional: Reports: no symptoms HEENT: Repors: no symptoms Respiratory: Reports: no symptoms Allergies: Coded Allergies: PENICILLINS (Verified Allergy, Unknown, 07/28/18) Objective Last 24 Hour Vital Signs Date Time Temp Pulse Resp B/P (MAP) Pulse Ox O2 Delivery O2 Flow Rate FiO2 09/27/18 16:00 97.0 65 22 137/76 (96) 100 09/27/18 16:00 2.0 09/27/18 12:00 97.3 66 22 109/68 (82) 100 09/27/18 12:00 2.0 09/27/18 11:48 65 09/27/18 10:40 97.3 09/27/18 08:30 67 18 98 Nasal Cannula 2.0 28 09/27/18 08:30 98 Nasal Cannula 2.0 28 09/27/18 08:00 97.3 70 20 104/57 (73) 100 09/27/18 08:00 2.0 09/27/18 07:38 69 09/27/18 04:00 2.0 09/27/18 04:00 98.1 70 18 134/62 (86) 97 09/27/18 00:00 97.4 67 18 129/71 (90) 99 09/27/18 00:00 70 09/26/18 21:00 Nasal Cannula 2.0 09/26/18 21:00 56 138/79 09/26/18 21:00 97.7 56 18 138/79 (98) 95 09/26/18 21:00 2.0 09/26/18 20:25 70 20 98 Nasal Cannula 2.0 28 09/26/18 20:25 98 Nasal Cannula 2.0 28 09/26/18 20:00 97.7 56 18 138/79 (98) 95 09/26/18 20:00 65 09/26/18 18:57 98.5 70 18 132/68 (89) 98 Intake and Output 8/7/19 8/8/19 19:00 07:00 Intake Total 410 ml 40 ml Output Total 3000 ml 0 ml Balance -2590 ml 40 ml Free Water 190 ml Tube Feeding 220 ml 40 ml Output Urine Total 0 ml 0 ml Hemodialysis UF 2000 ml Other 1000 ml General Appearance: WD/WN HEENT: normocephalic, atraumatic Respiratory/Chest: chest wall non-tender, lungs clear Cardiovascular: normal peripheral pulses, regular rhythm Abdomen: normal bowel sounds, soft, non tender Genitourinary: normal external genitalia Extremities: no clubbing Skin: no lesions Neurologic/Psychiatric: remediation bioanalytics consultant II-XII grossly normal Laboratory Tests 09/27/18 05:40: White Blood Count 6.1, Red Blood Count 4.35L, Hemoglobin 10.9L, Hematocrit 37.7L , Mean Corpuscular Volume 87, Mean Corpuscular Hemoglobin 25.0L, Mean Corpuscular Hemoglobin Concent 28.8L, Red Cell Distribution Width 25.9H, Platelet Count 170, Mean Platelet Volume 7.4, Neutrophils (%) (Auto) 56.4, Lymphocytes (%) (Auto) 28.1, Monocytes (%) (Auto) 11.2H, Eosinophils (%) (Auto) 2.8, Basophils (%) (Auto) 1.5, Sodium Level 134L, Potassium Level 3.9, Chloride Level 98, Carbon Dioxide Level 26, Anion Gap 10, Blood Urea Nitrogen 45H, Creatinine 4.4H, Estimat Glomerular Filtration Rate 13.6, Glucose Level 58L, Calcium Level 9.1, Total Bilirubin 0.4, Aspartate Amino Transf (AST/SGOT) 39H, Alanine Aminotransferase (ALT/SGPT) 32, Alkaline Phosphatase 157H, Pro-B-Type Natriuretic Peptide > 17236O, Total Protein 9.6H, Albumin 2.9L, Globulin 6.7, Albumin/Globulin Ratio 0.4L Current Medications Medications (Trade) Dose Ordered Sig/João Route PRN Reason Start Time Stop Time Status Last Admin Dose Admin Acetaminophen (Tylenol) 650 mg Q4H PRN GT Mild Pain/fever 09/26/18 17:28 10/26/18 17:27 09/27/18 05:40 Acetaminophen/ Hydrocodone Bitart ([place] 5/325) 1 tab Q6H PRN ORAL Severe Pain (Pain Scale 7-10) 8/8/19 10:15 10/04/18 10:14 09/27/18 18:10 Albuterol/ Ipratropium (Albuterol/ Ipratropium) 3 ml Q4H PRN HHN Shortness of Breath 09/26/18 17:29 10/01/18 17:28 Carvedilol (Coreg) 6.25 mg EVERY 12 HOURS GT 09/26/18 21:00 10/24/18 20:59 Chlorhexidine Gluconate (Deb-Hex 2%) 1 applic DAILY@1999 TOPIC 09/26/18 20:00 10/25/18 19:59 09/26/18 20:00 Dextrose (Dextrose 50%) 25 ml Q30M PRN IV Hypoglycemia 09/26/18 17:45 10/24/18 17:43 Dextrose (Dextrose 50%) 50 ml Q30M PRN IV hypoglycemia 09/26/18 17:45 10/24/18 17:44 Diphenhydramine HCl (Benadryl) 25 mg Q6H PRN GT Itching 09/27/18 13:00 10/27/18 12:59 09/27/18 13:14 Heparin Sodium (Porcine) (Heparin 5000 units/ml) 5,000 units EVERY 12 HOURS SUBQ 09/26/18 21:00 10/24/18 20:59 09/27/18 10:12 Hydrocortisone (Cortef) 10 mg BID GT 09/26/18 18:00 10/24/18 17:59 09/27/18 17:51 Insulin Aspart (NovoLOG) Q6HR SUBQ 09/26/18 18:00 10/25/18 17:59 Lansoprazole (Prevacid) 30 mg DAILY GT 09/27/18 09:00 10/25/18 08:59 09/27/18 10:10 Midodrine (Pro-Amatine) 5 mg THREE TIMES A DAY GT 09/26/18 18:00 10/24/18 17:59 09/27/18 17:51 Ondansetron HCl (Zofran) 4 mg Q6H PRN IVP Nausea & Vomiting 09/26/18 17:45 10/24/18 17:44 Polyethylene Glycol (Miralax) 17 gm DAILYPRN PRN GT Constipation 09/26/18 17:29 10/26/18 17:28 Sevelamer Carbonate (Renvela) 2,400 mg THREE TIMES A DAY GT 09/26/18 18:00 10/24/18 17:59 09/27/18 17:52 Temazepam (Restoril) 15 mg HSPRN PRN GT Insomnia 09/26/18 17:30 10/03/18 17:29 Ryan Traore MD Sep 27, 2018 18:27
--- NOTE | 2018-09-27 19:12 | Internal Med Progress Note ---
Subjective Date of Service: Sep 27, 2018 Physician Name Yoni Christianson Attending Physician Jose George MD Current Medications Medications (Trade) Dose Ordered Sig/João Route PRN Reason Start Time Stop Time Status Last Admin Dose Admin Acetaminophen (Tylenol) 650 mg Q4H PRN GT Mild Pain/fever 09/26/18 17:28 10/26/18 17:27 09/27/18 05:40 Acetaminophen/ Hydrocodone Bitart ([place] 5/325) 1 tab Q6H PRN ORAL Severe Pain (Pain Scale 7-10) 09/27/18 10:15 10/04/18 10:14 09/27/18 18:10 Albuterol/ Ipratropium (Albuterol/ Ipratropium) 3 ml Q4H PRN HHN Shortness of Breath 09/26/18 17:29 10/01/18 17:28 Carvedilol (Coreg) 6.25 mg EVERY 12 HOURS GT 09/26/18 21:00 10/24/18 20:59 Chlorhexidine Gluconate (Deb-Hex 2%) 1 applic DAILY@1999 TOPIC 09/26/18 20:00 10/25/18 19:59 09/26/18 20:00 Dextrose (Dextrose 50%) 25 ml Q30M PRN IV Hypoglycemia 09/26/18 17:45 10/24/18 17:43 Dextrose (Dextrose 50%) 50 ml Q30M PRN IV hypoglycemia 09/26/18 17:45 10/24/18 17:44 Diphenhydramine HCl (Benadryl) 25 mg Q6H PRN GT Itching 09/27/18 13:00 10/27/18 12:59 09/27/18 13:14 Heparin Sodium (Porcine) (Heparin 5000 units/ml) 5,000 units EVERY 12 HOURS SUBQ 09/26/18 21:00 10/24/18 20:59 09/27/18 10:12 Hydrocortisone (Cortef) 10 mg BID GT 09/26/18 18:00 10/24/18 17:59 09/27/18 17:51 Insulin Aspart (NovoLOG) Q6HR SUBQ 09/26/18 18:00 10/25/18 17:59 Lansoprazole (Prevacid) 30 mg DAILY GT 09/27/18 09:00 10/25/18 08:59 09/27/18 10:10 Midodrine (Pro-Amatine) 5 mg THREE TIMES A DAY GT 09/26/18 18:00 10/24/18 17:59 09/27/18 17:51 Ondansetron HCl (Zofran) 4 mg Q6H PRN IVP Nausea & Vomiting 09/26/18 17:45 10/24/18 17:44 Polyethylene Glycol (Miralax) 17 gm DAILYPRN PRN GT Constipation 09/26/18 17:29 10/26/18 17:28 Sevelamer Carbonate (Renvela) 2,400 mg THREE TIMES A DAY GT 09/26/18 18:00 10/24/18 17:59 09/27/18 17:52 Temazepam (Restoril) 15 mg HSPRN PRN GT Insomnia 09/26/18 17:30 10/03/18 17:29 Allergies: Coded Allergies: PENICILLINS (Verified Allergy, Unknown, 07/28/18) ROS Limited/Unobtainable: No Constitutional: Reports: no symptoms HEENT: Reports: no symptoms Cardiovascular: Reports: no symptoms Respiratory: Reports: no symptoms Gastrointestinal/Abdominal: Reports: no symptoms Genitourinary: Reports: no symptoms Neurologic/Psychiatric: Reports: no symptoms Subjective 63 YO M admitted with respiratory failure. Now acute CHF exacerbation. Cover for Int patricia-Dr George. Objective Last Vital Signs Date Time Temp Pulse Resp B/P (MAP) Pulse Ox O2 Delivery O2 Flow Rate FiO2 09/27/18 18:40 97.0 09/27/18 16:00 65 22 137/76 (96) 100 09/27/18 16:00 2.0 09/27/18 08:30 Nasal Cannula 28 Laboratory Tests Test 09/27/18 05:40 White Blood Count 6.1 K/UL (4.8-10.8) Red Blood Count 4.35 M/UL (4.70-6.10) L Hemoglobin 10.9 G/DL (14.2-18.0) L Hematocrit 37.7 % (42.0-52.0) L Mean Corpuscular Volume 87 FL (80-99) Mean Corpuscular Hemoglobin 25.0 PG (27.0-31.0) L Mean Corpuscular Hemoglobin Concent 28.8 G/DL (32.0-36.0) L Red Cell Distribution Width 25.9 % (11.6-14.8) H Platelet Count 170 K/UL (150-450) Mean Platelet Volume 7.4 FL (6.5-10.1) Neutrophils (%) (Auto) 56.4 % (45.0-75.0) Lymphocytes (%) (Auto) 28.1 % (20.0-45.0) Monocytes (%) (Auto) 11.2 % (1.0-10.0) H Eosinophils (%) (Auto) 2.8 % (0.0-3.0) Basophils (%) (Auto) 1.5 % (0.0-2.0) Sodium Level 134 MMOL/L (136-145) L Potassium Level 3.9 MMOL/L (3.5-5.1) Chloride Level 98 MMOL/L (98-107) Carbon Dioxide Level 26 MMOL/L (21-32) Anion Gap 10 mmol/L (5-15) Blood Urea Nitrogen 45 mg/dL (7-18) H Creatinine 4.4 MG/DL (0.55-1.30) H Estimat Glomerular Filtration Rate 13.6 mL/min (>60) Glucose Level 58 MG/DL (74-106) L Calcium Level 9.1 MG/DL (8.5-10.1) Total Bilirubin 0.4 MG/DL (0.2-1.0) Aspartate Amino Transf (AST/SGOT) 39 U/L (15-37) H Alanine Aminotransferase (ALT/SGPT) 32 U/L (12-78) Alkaline Phosphatase 157 U/L (46-116) H Pro-B-Type Natriuretic Peptide > 87431 pg/mL (0-125) H Total Protein 9.6 G/DL (6.4-8.2) H Albumin 2.9 G/DL (3.4-5.0) L Globulin 6.7 g/dL Albumin/Globulin Ratio 0.4 (1.0-2.7) L Intake and Output 09/26/18 09/27/18 19:00 07:00 Intake Total 410 ml 40 ml Output Total 3000 ml 0 ml Balance -2590 ml 40 ml Free Water 190 ml Tube Feeding 220 ml 40 ml Output Urine Total 0 ml 0 ml Hemodialysis UF 2000 ml Other 1000 ml Objective PHYSICAL EXAMINATION: GENERAL: The patient is a well-developed and well-nourished male, in moderate respiratory distress. HEENT: Eyes, pupils are equal and responsive to light and accommodation. Extraocular movements are intact. NECK: Supple without lymphadenopathy. CHEST: Venturi mask; Diffuse wheezes and crackles in bilateral bases. Otherwise, without wheezes or rales. CARDIOVASCULAR: Tachycardic. Regular rate. S1 and S2 are normal without murmurs, rubs, or gallops. ABDOMEN: Soft, nontender, and nondistended. Positive bowel sounds. No evidence of hepatosplenomegaly. Currently, no rebound or guarding noted. EXTREMITIES: Negative for clubbing, cyanosis, or edema. RECTAL/GENITAL: Not performed. NEUROLOGICAL: Unable to assess. Assessment/Plan Assessment/Plan ASSESSMENT: This is a 63-year-old male. 1. Respiratory failure. 2. Acute on chronic congestive heart failure. 3. End-stage renal disease. 4. Hypertension. 5. Dysphagia. 6. Dementia. TREATMENT: 1. Respiratory failure. The patient is currently on venturi mask. A Pulmonary consultation has been obtained with Dr. Ryan Traore. We will follow recommendations of Pulmonary. 2. Acute congestive heart failure. ?volume overload? Cardiology consultation has been obtained with Dr. Malcolm Yun. We will follow recommendations of Cardiology. 3. End-stage renal disease. A Nephrology consultation has been obtained with Dr. Hughes. Last hemodialysis 09/26/18 4. Hypertension. 5. Dysphagia. The patient is status post PEG placement. 6. Dementia. Yoni Christianson MD Sep 27, 2018 19:12
[2018-09-27 20:00] VITALS: BP 134/94
[2018-09-27] MEDS: Dyna-Hex 2% Top Sol 2oz TOPIC SCH (20:50)
[2018-09-28] VITALS: BP 127/73
[2018-09-28] MEDS: HYDROcodone/Acetamin 5/325 tab ORAL PRN ×3 (00:47→15:21)
[2018-09-28 04:00] VITALS: BP 129/63
[2018-09-28] MEDS: NovoLOG Insulin Flexpen SUBQ SCH ×3 (06:00→18:00)
[2018-09-28 06:44] LABS: BASOPHILS % (AUTO) 2.2 % (0.0-2.0); EOSINOPHILS % (AUTO) 2.4 % (0.0-3.0); HEMATOCRIT 37.8 % (42.0-52.0); HEMOGLOBIN 10.9 G/DL (14.2-18.0); MEAN CORPUSCULAR VOLUME 86 FL (80-99); MONOCYTES % (AUTO) 14.1 % (1.0-10.0); NEUTROPHILS % (AUTO) 53.3 % (45.0-75.0); PLATELET COUNT 171 K/UL (150-450); RED BLOOD COUNT 4.37 M/UL (4.70-6.10); RED CELL DISTRIBUTION WIDTH 25.3 % (11.6-14.8); WHITE BLOOD COUNT 5.7 K/UL (4.8-10.8)
[2018-09-28 07:23] LABS: ALANINE AMINOTRANSFERASE 31 U/L (12-78); ALBUMIN 2.7 G/DL (3.4-5.0); ALBUMIN/GLOBULIN RATIO 0.4 (1.0-2.7); ALKALINE PHOSPHATASE 140 U/L (46-116); ASPARTATE AMINO TRANSFERASE 30 U/L (15-37); BILIRUBIN,TOTAL 0.4 MG/DL (0.2-1.0); BLOOD UREA NITROGEN 54 mg/dL (7-18); CALCIUM 8.9 MG/DL (8.5-10.1); CHLORIDE 96 MMOL/L (98-107); CREATININE 5.7 MG/DL (0.55-1.30)
[2018-09-28 07:33] LABS: ANION GAP 5 mmol/L (5-15); CARBON DIOXIDE 26 MMOL/L (21-32); POTASSIUM 4.1 MMOL/L (3.5-5.1); SODIUM 127 MMOL/L (136-145)
--- NOTE | 2018-09-28 07:50 | Nephrology Progress Note ---
Assessment/Plan Assessment 1. End-stage renal disease. 2. Anemia of chronic kidney disease. 3. Renal osteodystrophy. 4. Hypokalemia. 5. Non-ST elevation DC. 6. Hypotension. 7. Fluid overload. Plan dialysis today continue epogen monitoring phos replace electrolyte as need it Subjective Subjective alert and awake c/o back pain Objective Objective Last 24 Hour Vital Signs Date Time Temp Pulse Resp B/P (MAP) Pulse Ox O2 Delivery O2 Flow Rate FiO2 09/28/18 07:30 63 17 98 Nasal Cannula 2.0 28 09/28/18 07:30 98 Nasal Cannula 2.0 28 09/28/18 04:00 98.2 74 18 129/63 (85) 100 09/28/18 04:00 2.0 09/28/18 01:17 98.1 09/28/18 00:00 98.1 69 18 127/73 (91) 99 09/27/18 21:00 Nasal Cannula 2.0 09/27/18 20:50 66 134/94 09/27/18 20:13 99 Nasal Cannula 2.0 28 09/27/18 20:13 71 18 99 Nasal Cannula 2.0 28 09/27/18 20:00 2.0 09/27/18 20:00 97.7 66 20 134/94 (107) 100 09/27/18 16:00 97.0 65 22 137/76 (96) 100 09/27/18 16:00 2.0 09/27/18 12:00 97.3 66 22 109/68 (82) 100 09/27/18 12:00 2.0 09/27/18 11:48 65 09/27/18 08:30 67 18 98 Nasal Cannula 2.0 28 09/27/18 08:30 98 Nasal Cannula 2.0 28 09/27/18 08:00 97.3 70 20 104/57 (73) 100 09/27/18 08:00 2.0 Intake and Output 09/27/18 09/28/18 19:00 07:00 Intake Total 360 ml Output Total 3000 ml Balance -2640 ml Intake Oral 0 ml Free Water 200 ml Tube Feeding 160 ml Output Urine Total 0 ml Hemodialysis UF 2000 ml Other 1000 ml # Bowel Movements 2 Laboratory Tests 09/28/18 05:55: White Blood Count 5.7, Red Blood Count 4.37L, Hemoglobin 10.9L, Hematocrit 37.8L , Mean Corpuscular Volume 86, Mean Corpuscular Hemoglobin 25.0L, Mean Corpuscular Hemoglobin Concent 29.0L, Red Cell Distribution Width 25.3H, Platelet Count 171, Mean Platelet Volume 7.7, Neutrophils (%) (Auto) 53.3, Lymphocytes (%) (Auto) 28.0, Monocytes (%) (Auto) 14.1H, Eosinophils (%) (Auto) 2.4, Basophils (%) (Auto) 2.2H, Sodium Level 127L, Potassium Level 4.1, Chloride Level 96L, Carbon Dioxide Level 26, Anion Gap 5, Blood Urea Nitrogen 54H, Creatinine 5.7H, Estimat Glomerular Filtration Rate 10.1, Glucose Level 72L , Calcium Level 8.9, Total Bilirubin 0.4, Aspartate Amino Transf (AST/SGOT) 30, Alanine Aminotransferase (ALT/SGPT) 31, Alkaline Phosphatase 140H, Total Protein 9.1H, Albumin 2.7L, Globulin 6.4, Albumin/Globulin Ratio 0.4L Height (Feet): 5 Height (Inches): 10.00 Weight (Pounds): 171 Objective HEAD AND NECK: Positive JVD. Extraocular movements intact. Pupils are reactive to light and accommodation. LUNGS: Bilateral crackles. CARDIAC: Regular rhythm. S1 and S2 normal. No murmurs or rubs. ABDOMEN: Soft. G-tube is in place. No organomegaly. EXTREMITIES: No edema. No clubbing. No cyanosis. Wanda Hughes MD Sep 28, 2018 07:50
[2018-09-28 08:00] VITALS: BP 120/61
--- NOTE | 2018-09-28 08:13 | Diagnostic Imaging Report ---
Indication: Reason For Exam: S/P THORA Technique: Single AP view of the chest. Comparison: Chest radiograph dated 09/24/2018 Findings: The cardiomediastinal silhouette is unchanged. Interval reduction in size of right pleural effusion, now small, with reexpansion of the right lung. Persistent associated airspace disease likely represents residual consolidation/atelectasis. No significant pneumothorax. Persistent pulmonary vascular congestion. Unchanged position of left approach central venous catheters. IMPRESSION: Status post right thoracentesis with small residual right pleural effusion and associated airspace disease, likely representing atelectasis versus consolidation.
--- NOTE | 2018-09-28 08:14 | Diagnostic Imaging Report ---
Indications: Pleural effusion Technique: Ultrasound used to localize optimal puncture site. Sterile prepping and draping right chest. Local anesthesia with 1% lidocaine. Under real-time ultrasound guidance, puncture pleural space using 5Fr Yuey. Stylet removed. Catheter placed to vacuum bottle suction. Total 1000 milliliters of fluid aspirated. Patient tolerated procedure well, without immediate complication. Findings: Followup sonography demonstrates partial resolution of pleural fluid. Impression: Successful ultrasound-guided thoracentesis, yielding 1000 milliliters of fluid
[2018-09-28] MEDS: Carvedilol 6.25mg Tab GT SCH (09:00)
[2018-09-28] MEDS: DiphenhydrAMINE 25mg/10ml Elixir GT PRN ×2 (09:29→15:21)
[2018-09-28] MEDS: Renvela 2400 mg pkt GT SCH ×3 (09:30→18:00)
[2018-09-28] MEDS: Heparin 5000 units/ml inj SUBQ SCH (09:31)
--- NOTE | 2018-09-28 11:52 | Pulmonology Progress Note ---
Assessment/Plan Problems: (1) Acute respiratory failure with hypoxia (2) Acute metabolic encephalopathy (3) Pleural effusion (4) CHF (congestive heart failure) (5) AV fistula occlusion (6) ESRD (end stage renal disease) (7) Feeding by G-tube Assessment/Plan 1000 cc removed by thoracentesis HD done today improving continue current meds dc planning Subjective ROS Limited/Unobtainable: No Constitutional: Reports: no symptoms HEENT: Repors: no symptoms Respiratory: Reports: no symptoms Allergies: Coded Allergies: PENICILLINS (Verified Allergy, Unknown, 07/28/18) Objective Last 24 Hour Vital Signs Date Time Temp Pulse Resp B/P (MAP) Pulse Ox O2 Delivery O2 Flow Rate FiO2 09/28/18 10:00 98.6 09/28/18 09:00 75 120/61 09/28/18 08:00 98.6 75 20 120/61 (80) 98 09/28/18 08:00 2.0 09/28/18 07:30 63 17 98 Nasal Cannula 2.0 28 09/28/18 07:30 98 Nasal Cannula 2.0 28 09/28/18 04:00 98.2 74 18 129/63 (85) 100 09/28/18 04:00 2.0 09/28/18 00:00 98.1 69 18 127/73 (91) 99 09/27/18 21:00 Nasal Cannula 2.0 09/27/18 20:50 66 134/94 09/27/18 20:13 99 Nasal Cannula 2.0 28 09/27/18 20:13 71 18 99 Nasal Cannula 2.0 28 09/27/18 20:00 2.0 09/27/18 20:00 97.7 66 20 134/94 (107) 100 09/27/18 16:00 97.0 65 22 137/76 (96) 100 09/27/18 16:00 2.0 09/27/18 12:00 97.3 66 22 109/68 (82) 100 09/27/18 12:00 2.0 Intake and Output 09/27/18 09/28/18 19:00 07:00 Intake Total 360 ml 120 ml Output Total 3000 ml 0 ml Balance -2640 ml 120 ml Intake Oral 0 ml 120 ml Free Water 200 ml Tube Feeding 160 ml Output Urine Total 0 ml 0 ml Hemodialysis UF 2000 ml Other 1000 ml # Bowel Movements 2 General Appearance: WD/WN HEENT: normocephalic, atraumatic Respiratory/Chest: chest wall non-tender, lungs clear Cardiovascular: normal peripheral pulses, normal rate Abdomen: normal bowel sounds, soft, non tender Extremities: no cyanosis Skin: no ulcers Neurologic/Psychiatric: mixing machine tender cork rod II-XII grossly normal Laboratory Tests 09/28/18 05:55: White Blood Count 5.7, Red Blood Count 4.37L, Hemoglobin 10.9L, Hematocrit 37.8L , Mean Corpuscular Volume 86, Mean Corpuscular Hemoglobin 25.0L, Mean Corpuscular Hemoglobin Concent 29.0L, Red Cell Distribution Width 25.3H, Platelet Count 171, Mean Platelet Volume 7.7, Neutrophils (%) (Auto) 53.3, Lymphocytes (%) (Auto) 28.0, Monocytes (%) (Auto) 14.1H, Eosinophils (%) (Auto) 2.4, Basophils (%) (Auto) 2.2H, Sodium Level 127L, Potassium Level 4.1, Chloride Level 96L, Carbon Dioxide Level 26, Anion Gap 5, Blood Urea Nitrogen 54H, Creatinine 5.7H, Estimat Glomerular Filtration Rate 10.1, Glucose Level 72L , Calcium Level 8.9, Total Bilirubin 0.4, Aspartate Amino Transf (AST/SGOT) 30, Alanine Aminotransferase (ALT/SGPT) 31, Alkaline Phosphatase 140H, Total Protein 9.1H, Albumin 2.7L, Globulin 6.4, Albumin/Globulin Ratio 0.4L Current Medications Medications (Trade) Dose Ordered Sig/João Route PRN Reason Start Time Stop Time Status Last Admin Dose Admin Acetaminophen (Tylenol) 650 mg Q4H PRN GT Mild Pain/fever 09/26/18 17:28 10/26/18 17:27 09/27/18 05:40 Acetaminophen/ Hydrocodone Bitart ([place] 5/325) 1 tab Q6H PRN ORAL Severe Pain (Pain Scale 7-10) 09/27/18 10:15 10/04/18 10:14 09/28/18 09:30 Albuterol/ Ipratropium (Albuterol/ Ipratropium) 3 ml Q4H PRN HHN Shortness of Breath 09/26/18 17:29 10/01/18 17:28 Carvedilol (Coreg) 6.25 mg EVERY 12 HOURS GT 09/26/18 21:00 10/24/18 20:59 09/27/18 20:50 Chlorhexidine Gluconate (Deb-Hex 2%) 1 applic DAILY@2000 TOPIC 09/26/18 20:00 10/25/18 19:59 09/27/18 20:50 Dextrose (Dextrose 50%) 25 ml Q30M PRN IV Hypoglycemia 09/26/18 17:45 10/24/18 17:43 Dextrose (Dextrose 50%) 50 ml Q30M PRN IV hypoglycemia 09/26/18 17:45 10/24/18 17:44 Diphenhydramine HCl (Benadryl) 25 mg Q6H PRN GT Itching 09/27/18 13:00 10/27/18 12:59 09/28/18 09:29 Heparin Sodium (Porcine) (Heparin 5000 units/ml) 5,000 units EVERY 12 HOURS SUBQ 09/26/18 21:00 10/24/18 20:59 09/28/18 09:31 Hydrocortisone (Cortef) 10 mg BID GT 09/26/18 18:00 10/24/18 17:59 09/28/18 09:30 Insulin Aspart (NovoLOG) Q6HR SUBQ 09/26/18 18:00 10/25/18 17:59 Lansoprazole (Prevacid) 30 mg DAILY GT 09/27/18 09:00 10/25/18 08:59 09/28/18 09:30 Midodrine (Pro-Amatine) 5 mg THREE TIMES A DAY GT 09/26/18 18:00 10/24/18 17:59 09/27/18 17:51 Ondansetron HCl (Zofran) 4 mg Q6H PRN IVP Nausea & Vomiting 09/26/18 17:45 10/24/18 17:44 Polyethylene Glycol (Miralax) 17 gm DAILYPRN PRN GT Constipation 09/26/18 17:29 10/26/18 17:28 09/27/18 22:57 Sevelamer Carbonate (Renvela) 2,400 mg THREE TIMES A DAY GT 09/26/18 18:00 10/24/18 17:59 09/28/18 09:30 Temazepam (Restoril) 15 mg HSPRN PRN GT Insomnia 09/26/18 17:30 10/03/18 17:29 09/27/18 22:57 Ryan Traore MD Sep 28, 2018 11:52
[2018-09-28 12:00] VITALS: BP 132/68
--- NOTE | 2018-09-28 13:53 | Internal Med Progress Note ---
Subjective Physician Name Jose George Attending Physician Jose George MD Current Medications Medications (Trade) Dose Ordered Sig/João Route PRN Reason Start Time Stop Time Status Last Admin Dose Admin Acetaminophen (Tylenol) 650 mg Q4H PRN GT Mild Pain/fever 09/26/18 17:28 10/26/18 17:27 09/27/18 05:40 Acetaminophen/ Hydrocodone Bitart ([place] 5/325) 1 tab Q6H PRN ORAL Severe Pain (Pain Scale 7-10) 09/27/18 10:15 10/04/18 10:14 09/28/18 09:30 Albuterol/ Ipratropium (Albuterol/ Ipratropium) 3 ml Q4H PRN HHN Shortness of Breath 09/26/18 17:29 10/01/18 17:28 Carvedilol (Coreg) 6.25 mg EVERY 12 HOURS GT 09/26/18 21:00 10/24/18 20:59 09/27/18 20:50 Chlorhexidine Gluconate (Deb-Hex 2%) 1 applic DAILY@1999 TOPIC 09/26/18 20:00 10/25/18 19:59 09/27/18 20:50 Dextrose (Dextrose 50%) 25 ml Q30M PRN IV Hypoglycemia 09/26/18 17:45 10/24/18 17:43 Dextrose (Dextrose 50%) 50 ml Q30M PRN IV hypoglycemia 09/26/18 17:45 10/24/18 17:44 Diphenhydramine HCl (Benadryl) 25 mg Q6H PRN GT Itching 09/27/18 13:00 10/27/18 12:59 09/28/18 09:29 Heparin Sodium (Porcine) (Heparin 5000 units/ml) 5,000 units EVERY 12 HOURS SUBQ 09/26/18 21:00 10/24/18 20:59 09/28/18 09:31 Hydrocortisone (Cortef) 10 mg BID GT 09/26/18 18:00 10/24/18 17:59 09/28/18 09:30 Insulin Aspart (NovoLOG) Q6HR SUBQ 09/26/18 18:00 10/25/18 17:59 Lansoprazole (Prevacid) 30 mg DAILY GT 09/27/18 09:00 10/25/18 08:59 09/28/18 09:30 Midodrine (Pro-Amatine) 5 mg THREE TIMES A DAY GT 09/26/18 18:00 10/24/18 17:59 09/27/18 17:51 Ondansetron HCl (Zofran) 4 mg Q6H PRN IVP Nausea & Vomiting 09/26/18 17:45 10/24/18 17:44 Polyethylene Glycol (Miralax) 17 gm DAILYPRN PRN GT Constipation 09/26/18 17:29 10/26/18 17:28 09/27/18 22:57 Sevelamer Carbonate (Renvela) 2,400 mg THREE TIMES A DAY GT 09/26/18 18:00 10/24/18 17:59 09/28/18 09:30 Temazepam (Restoril) 15 mg HSPRN PRN GT Insomnia 09/26/18 17:30 10/03/18 17:29 09/27/18 22:57 Allergies: Coded Allergies: PENICILLINS (Verified Allergy, Unknown, 07/28/18) Subjective awake, responsive, NAD, getting dialysis now Objective Last Vital Signs Date Time Temp Pulse Resp B/P (MAP) Pulse Ox O2 Delivery O2 Flow Rate FiO2 09/28/18 12:00 2.0 09/28/18 12:00 97.4 63 18 132/68 (89) 98 09/28/18 07:30 Nasal Cannula 28 Laboratory Tests Test 09/28/18 05:55 White Blood Count 5.7 K/UL (4.8-10.8) Red Blood Count 4.37 M/UL (4.70-6.10) L Hemoglobin 10.9 G/DL (14.2-18.0) L Hematocrit 37.8 % (42.0-52.0) L Mean Corpuscular Volume 86 FL (80-99) Mean Corpuscular Hemoglobin 25.0 PG (27.0-31.0) L Mean Corpuscular Hemoglobin Concent 29.0 G/DL (32.0-36.0) L Red Cell Distribution Width 25.3 % (11.6-14.8) H Platelet Count 171 K/UL (150-450) Mean Platelet Volume 7.7 FL (6.5-10.1) Neutrophils (%) (Auto) 53.3 % (45.0-75.0) Lymphocytes (%) (Auto) 28.0 % (20.0-45.0) Monocytes (%) (Auto) 14.1 % (1.0-10.0) H Eosinophils (%) (Auto) 2.4 % (0.0-3.0) Basophils (%) (Auto) 2.2 % (0.0-2.0) H Sodium Level 127 MMOL/L (136-145) L Potassium Level 4.1 MMOL/L (3.5-5.1) Chloride Level 96 MMOL/L (98-107) L Carbon Dioxide Level 26 MMOL/L (21-32) Anion Gap 5 mmol/L (5-15) Blood Urea Nitrogen 54 mg/dL (7-18) H Creatinine 5.7 MG/DL (0.55-1.30) H Estimat Glomerular Filtration Rate 10.1 mL/min (>60) Glucose Level 72 MG/DL (74-106) L Calcium Level 8.9 MG/DL (8.5-10.1) Total Bilirubin 0.4 MG/DL (0.2-1.0) Aspartate Amino Transf (AST/SGOT) 30 U/L (15-37) Alanine Aminotransferase (ALT/SGPT) 31 U/L (12-78) Alkaline Phosphatase 140 U/L (46-116) H Total Protein 9.1 G/DL (6.4-8.2) H Albumin 2.7 G/DL (3.4-5.0) L Globulin 6.4 g/dL Albumin/Globulin Ratio 0.4 (1.0-2.7) L Intake and Output 09/27/18 09/28/18 19:00 07:00 Intake Total 360 ml 120 ml Output Total 3000 ml 0 ml Balance -2640 ml 120 ml Intake Oral 0 ml 120 ml Free Water 200 ml Tube Feeding 160 ml Output Urine Total 0 ml 0 ml Hemodialysis UF 2000 ml Other 1000 ml # Bowel Movements 2 Objective General: No acute distress, awake and responsive, slurs speech HEENT: NCAT, sclera anicteric, PERRL, EOMI. Neck: Supple, no significant jugular venous distention, Lungs: Fair inspiratory effort, no Wheeze or Rales. left chest wall PermCath. Heart: Regular rate and rhythm, normal S1/S2, no murmur. Abdomen: soft, nontender, nondistended. Normoactive bowel sounds, PEG site intact. BACK: Sacral Ulceration. Extremities: No Cyanosis , clubbing or edema. Neuro: A&O x 2, Able to move all extremities slowly. Assessment/Plan Assessment/Plan (1) Acute respiratory failure with hypoxia (2) Acute metabolic encephalopathy (3) Pleural effusion (4) CHF (congestive heart failure) (5) AV fistula occlusion (6) ESRD (end stage renal disease) (7) Dysphagia s/p G-tube Plan: Dialysis today DC planning for today. Jose George MD Sep 28, 2018 13:53
--- NOTE | 2018-09-28 15:03 | Cardiac Electrophysiology PN ---
Assessment/Plan Assessment/Plan 1. Troponin leak, likely due to the renal failure/HD. Levels are flat at 0.3 and 0.3. On Coreg 6.25 mg b.i.d. No CP 2. Hypotension. Resolved 3. Dysphagia, status post G-tube. Passed Swallow eval also 4. Respiratory failure. BNP more than 35,000 on hemodialysis. Echo showed EF of 60% to 65%. 5. 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 The patient is on beta-valarie Subjective Subjective Had HD today. Passed Swallow eval. DC to [facility] today Objective Last 24 Hour Vital Signs Date Time Temp Pulse Resp B/P (MAP) Pulse Ox O2 Delivery O2 Flow Rate FiO2 09/28/18 12:00 2.0 09/28/18 12:00 97.4 63 18 132/68 (89) 98 09/28/18 10:00 98.6 09/28/18 09:00 75 120/61 09/28/18 09:00 Nasal Cannula 2.0 09/28/18 08:00 98.6 75 20 120/61 (80) 98 09/28/18 08:00 2.0 09/28/18 07:30 63 17 98 Nasal Cannula 2.0 28 09/28/18 07:30 98 Nasal Cannula 2.0 28 09/28/18 04:00 98.2 74 18 129/63 (85) 100 09/28/18 04:00 2.0 09/28/18 00:00 98.1 69 18 127/73 (91) 99 09/27/18 21:00 Nasal Cannula 2.0 09/27/18 20:50 66 134/94 09/27/18 20:13 99 Nasal Cannula 2.0 28 09/27/18 20:13 71 18 99 Nasal Cannula 2.0 28 09/27/18 20:00 2.0 09/27/18 20:00 97.7 66 20 134/94 (107) 100 09/27/18 16:00 97.0 65 22 137/76 (96) 100 09/27/18 16:00 2.0 Intake and Output 09/27/18 09/28/18 19:00 07:00 Intake Total 360 ml 120 ml Output Total 3000 ml 0 ml Balance -2640 ml 120 ml Intake Oral 0 ml 120 ml Free Water 200 ml Tube Feeding 160 ml Output Urine Total 0 ml 0 ml Hemodialysis UF 2000 ml Other 1000 ml # Bowel Movements 2 Laboratory Tests Test 09/28/18 05:55 White Blood Count 5.7 K/UL (4.8-10.8) Red Blood Count 4.37 M/UL (4.70-6.10) L Hemoglobin 10.9 G/DL (14.2-18.0) L Hematocrit 37.8 % (42.0-52.0) L Mean Corpuscular Volume 86 FL (80-99) Mean Corpuscular Hemoglobin 25.0 PG (27.0-31.0) L Mean Corpuscular Hemoglobin Concent 29.0 G/DL (32.0-36.0) L Red Cell Distribution Width 25.3 % (11.6-14.8) H Platelet Count 171 K/UL (150-450) Mean Platelet Volume 7.7 FL (6.5-10.1) Neutrophils (%) (Auto) 53.3 % (45.0-75.0) Lymphocytes (%) (Auto) 28.0 % (20.0-45.0) Monocytes (%) (Auto) 14.1 % (1.0-10.0) H Eosinophils (%) (Auto) 2.4 % (0.0-3.0) Basophils (%) (Auto) 2.2 % (0.0-2.0) H Sodium Level 127 MMOL/L (136-145) L Potassium Level 4.1 MMOL/L (3.5-5.1) Chloride Level 96 MMOL/L (98-107) L Carbon Dioxide Level 26 MMOL/L (21-32) Anion Gap 5 mmol/L (5-15) Blood Urea Nitrogen 54 mg/dL (7-18) H Creatinine 5.7 MG/DL (0.55-1.30) H Estimat Glomerular Filtration Rate 10.1 mL/min (>60) Glucose Level 72 MG/DL (74-106) L Calcium Level 8.9 MG/DL (8.5-10.1) Total Bilirubin 0.4 MG/DL (0.2-1.0) Aspartate Amino Transf (AST/SGOT) 30 U/L (15-37) Alanine Aminotransferase (ALT/SGPT) 31 U/L (12-78) Alkaline Phosphatase 140 U/L (46-116) H Total Protein 9.1 G/DL (6.4-8.2) H Albumin 2.7 G/DL (3.4-5.0) L Globulin 6.4 g/dL Albumin/Globulin Ratio 0.4 (1.0-2.7) L Objective HEAD AND NECK: Show positive JVD. LUNGS: Coarse rhonchi. CARDIOVASCULAR: Shows regular S1 and S2 with no gallop. Dialysis access in the left subclavian. ABDOMEN: Soft. G-tube. EXTREMITIES: No pitting edema. Malcolm Yun MD Sep 28, 2018 15:02
[2018-09-28 16:00] VITALS: BP 127/65
--- NOTE | 2018-09-29 09:50 | Discharge Summary ---
Discharge Summary Discharge Summary _ DATE OF ADMISSION: 09/24/2018 DATE OF DISCHARGE: 09/28/2018 ADMITTING MD: Dr. Jose George DISCHARGED BY: Dr. Ryan Traore CONSULTANTS: Dr. Ryan Yun BRIEF HOSPITAL COURSE: Patient is a 63-year-old male who presented with chief complaint of altered mental status and respiratory distress. Patient is a resident of [facility] nursing [facility]. Patient unable to contribute to history. According to staff, patient began to have respiratory distress. The patient was found to be hypoxic with O2 saturation of 70s on room air. Patient was then transported to [facility] for further evaluation. He has medical history significant for end-stage renal disease, on hemodialysis, hypertension, dysphagia and Alzheimer's dementia. On evaluation at ED, he was found to be hypoxic. He was started on nonrebreather which improved his O2 saturation to 90s. There are crackles at the bases. Blood work did not show any leukocytosis, hemoglobin 13, hematocrit 44. Sodium 129, potassium 3.8, chloride 92. BUN was elevated to 66 and creatinine 4.6. Glucose 136. Magnesium 2.8. Troponin 0 0.265. proBNP greater than 35,000. TSH 9.2. Chest x-ray showed interstitial edema with CHF. ABG showed pH of 7.075 with PCO2 of 114, consistent with hypoxic respiratory failure and bilateral pulmonary congestion on chest x-ray. He was started on BiPAP. He was then admitted to [facility] for evaluation of respiratory failure and congestive heart failure. He was given inpatient hemodialysis. He was resumed G-tube feeding. He was given Epogen for anemia. He had thoracentesis on the right chest that he had 1 L of fluid. BNP was elevated to 35,000. Echocardiogram showed EF of 60 to 65%. Troponin levels were elevated, however, levels were flat. Troponin leak likely due to renal failure/hemodialysis. There was no chest pain. 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 He was given Coreg. Patient wanted PEG to be removed. Swallow evaluation was done. For quality of life, he was recommended being on liquefied pured like nectar thick soup diet with liquids. Strict aspiration precaution. One-to-one feed. Recommended to continue with PEG feeding until adequate oral intake. He was eventually discharged to SNF. FINAL DIAGNOSES: Acute respiratory failure with hypoxia Acute metabolic encephalopathy Pleural effusion status post thoracentesis Acute on chronic diastolic CHF End-stage renal disease on hemodialysis Troponin leak, likely due to renal failure Hypotension, resolved Dysphagia, status post G-tube Hypokalemia Anemia chronic kidney disease Renal osteodystrophy Fluid overload DISPOSITION: Patient was discharged to a SNF. DISCHARGE MEDICATIONS: Refer to Discharge Medication List. I have been assigned to complete a discharge summary on this account, I was not involved with the patient's management.--AFSANEH García Jacqueline Robles NP Sep 29, 2018 09:50
== END 2018-09-28 18:55 | DRG 133 ==
LOC: EDBD 13:39 → EDBEDREQ 15:24 → EMR 15:40 → 2W 15:58 → EDBEDREQ 16:30 → EDBEDREQSVC 17:08 → EDBEDREQ 17:43 → ICU 17:51 → 2E 09-26 17:15
PROC: 5A09357 Assistance with Respiratory Ventilation, Less than 24 Consecutive Hours, Continuous Positive Airway Pressure (ICD-10-PCS; principal; 2018-09-24)
PROC: 5A1D70Z Performance of Urinary Filtration, Intermittent, Less than 6 Hours Per Day (ICD-10-PCS; 2018-09-25)
PROC: 0W993ZZ Drainage of Right Pleural Cavity, Percutaneous Approach (ICD-10-PCS; 2018-09-26)
DX: J96.21 Acute and chronic respiratory failure with hypoxia (principal); N18.6 End stage renal disease; Z99.2 Dependence on renal dialysis; G93.41 Metabolic encephalopathy; I50.33 Acute on chronic diastolic (congestive) heart failure; L89.159 Pressure ulcer of sacral region, unspecified stage; G30.9 Alzheimer's disease, unspecified; F02.80 Dementia in other diseases classified elsewhere, unspecified severity, without behavioral disturbance, psychotic disturbance, mood disturbance, and anxiety; R13.10 Dysphagia, unspecified; Z43.1 Encounter for attention to gastrostomy; Z88.0 Allergy status to penicillin; I13.2 Hypertensive heart and chronic kidney disease with heart failure and with stage 5 chronic kidney disease, or end stage renal disease; T82.590A Other mechanical complication of surgically created arteriovenous fistula, initial encounter; J90 Pleural effusion, not elsewhere classified; Y83.2 Surgical operation with anastomosis, bypass or graft as the cause of abnormal reaction of the patient, or of later complication, without mention of misadventure at the time of the procedure; D63.1 Anemia in chronic kidney disease; N25.0 Renal osteodystrophy; I21.4 Non-ST elevation (NSTEMI) myocardial infarction; I25.2 Old myocardial infarction
CPT/HCPCS: 36415; 36600; 71045; 74230; 76942; 80048; 80053; 80069; 82140; 82550; 82553; 82803; 82962; 83605; 83735; 83880; 84100; 84443; 84484; 85025; 85610; 85730; 86706; 87040; 87081; 88104; 89051; 93005; 93306; 94660; 94664; 96360; 99291; J1815